=== PATIENT | female | born 1960 | race Caucasian/White ===

== ENCOUNTER 2018-05-20 11:17 | Outpatient (REF) | payer MEDICAID, SELFPAY ==
[2018-05-20 21:53] LABS: Cholesterol 250 mg/dL (50-200); HDL Cholesterol 50 mg/dL (40-60); LDL CHOLESTEROL 176 mg/dL (<100); TSH (W/Ref FT4) 1.82 uIU/mL (0.358-3.74); Triglyceride 174 mg/dL (30-150)
[2018-05-22 11:35] LABS: Hepatitis C Ab w Rflx HCV PCR Negative (NEGAT)
== END 2018-05-20 11:37 ==
LOC: NCHCN 11:17
PROVIDERS: PCP Nurse Practitioner Primary Care; Visit Provider Nurse Practitioner Family
DX: F41.8 Other specified anxiety disorders (principal); M19.049 Primary osteoarthritis, unspecified hand; N39.490 Overflow incontinence; B36.0 Pityriasis versicolor; R00.2 Palpitations; E78.5 Hyperlipidemia, unspecified; Z00.00 Encounter for general adult medical examination without abnormal findings
CPT/HCPCS: 80061; 83721; 86803; 84443

== ENCOUNTER 2018-05-29 00:38 | Outpatient (CLI) | payer MEDICAID, SELFPAY ==
--- NOTE | 2018-05-29 08:36 | DI.MAMMO_ITS ---
SYMPTOM/DIAGNOSIS: SCREENING, Z12.31 MAMMOGRAM: Mammograms were interpreted according to the usual protocol including computer analysis with CAD system, tomosynthesis and C view imaging. The breast tissue is of moderate radiodensity. There are small bilateral areas of nodularity unchanged when compared with the prior images. There are no suspicious calcifications. There has been no significant interval change when compared with prior examinations. SUMMARY: No evidence of malignancy, Category 1. Yearly screening mammography is recommended. Breast density category B. SA ASSESSMENT OF FINDINGS: Negative. Category 1. Patient will receive a letter notifying them of these results. BI-RADS category B. There are scattered areas of fibroglandular density.
== END 2018-05-29 00:58 ==
PROVIDERS: PCP Nurse Practitioner Primary Care; Visit Provider Nurse Practitioner Family
DX: Z12.31 Encounter for screening mammogram for malignant neoplasm of breast (principal)
CPT/HCPCS: 77063; 77067

== ENCOUNTER 2019-05-26 11:06 | Outpatient (REF) | payer MEDICAID, SELFPAY ==
[2019-05-26 14:31] LABS: Hemoglobin A1C 5.5 % (4.5-6.2)
== END 2019-05-26 11:26 ==
LOC: NCHCN 11:06
PROVIDERS: PCP Nurse Practitioner Family; Visit Provider Nurse Practitioner Family
DX: E78.5 Hyperlipidemia, unspecified (principal); K30 Functional dyspepsia; M25.561 Pain in right knee; M54.9 Dorsalgia, unspecified; M19.049 Primary osteoarthritis, unspecified hand; E66.9 Obesity, unspecified; Z12.11 Encounter for screening for malignant neoplasm of colon
CPT/HCPCS: 83036

== ENCOUNTER 2019-06-23 00:42 | Outpatient (CLI) | payer MEDICAID, SELFPAY ==
--- NOTE | 2019-06-23 15:55 | DI.MAMMO_ITS ---
EXAM: MAMMO SCREENING CLINICAL HISTORY: SCREENING Z12.31 TECHNIQUE: Mammograms were interpreted according to the usual protocol including computer analysis w [employer] CAD system, tomosynthesis and C-view imaging. COMPARISON: [id number] FINDINGS: The breasts are composed of scattered areas of fibroglandular densities, breast density category B. There are no suspicious masses or suspicious microcalcifications. There has been no significant agrawal e when compared with prior images. IMPRESSION: Category 1, negative mammogram. Routine yearly screening is recommended. BI-RADS Cat 1 - Negative Breast Density - Category B - Scattered areas of fibroglandular density
== END 2019-06-23 01:02 ==
PROVIDERS: PCP Nurse Practitioner Family; Visit Provider Nurse Practitioner Family
DX: Z12.31 Encounter for screening mammogram for malignant neoplasm of breast (principal)
CPT/HCPCS: 77063; 77067

== ENCOUNTER 2020-06-02 23:58 | Emergency (ER) | payer MEDICAID, SELFPAY ==
[2020-06-03 00:01] VITALS: BP 158/66; PULSE 70; RESP 16; TEMP 36; O2SAT 99
--- NOTE | 2020-06-03 00:01 | ED.GENADUL_ITS ---
Discharge Plan Disposition Patient Disposition: HOME Condition: Good Discharge Details Clinical Impression: Renal colic on left side Primary Care Provider: Jodie Franklin ED Provider: Praneeth Pastrana Meds and New Rx's Prescriptions: New Hydrocodone/Apap 5/325, 4 Tab [[place] 5/325, 4 Tabs/Btl] 1 tab PO BID Qty: 4 RF: 0 Continued multivitamin Tablet 1 tab PO DAILY RF: 0 acetaminophen 500 mg Tablet 500 mg PO Q6H PRNRF: 0 ibuprofen [Advil] 200 mg Tablet 200 mg PO Q6H PRNRF: 0 Discharge Instructions Instructions: Renal Colic (ED) Additional Instructions: Stay hydrated. Strain urine. Alternate acetaminophen with ibuprofen as we discussed. Use hydrocodone with acetaminophen for severe pain. Contact primary care for follow-up especially if not better in the next few days. Return to ED if you develop fever, worsening pain, persistent vomiting. Referrals: Jodie Franklin [Primary Care Provider] - Medical Decision Making Patient's presentation consistent with renal colic. Now very comfortable with benign exam. CT scan currently down. If CBC and chemistry unremarkable and urine with hematuria would assume ureteral stone and colic. 01:15 -patient's urine does have a large amount of blood present. No sign of infection by urinalysis and micro. White count is normal. Creatinine a little higher than previous but no CVAT. Patient comfortable at this point. Discussed renal colic/kidney stones, need for follow-up, straining urine. Recommend alternating acetaminophen with ibuprofen and using [place] for severe pain. State information sheet and informed consent obtained. Contact primary care for follow-up in the next few days if not better. Return to ED for fever, uncontrolled pain, persistent vomiting. Medical Records Medical records reviewed: Yes I reviewed the patient's medical records. Lab Data Lab results reviewed: Yes I reviewed the patient's lab results. HPI General Mode of arrival: ambulatory . Date/Time Provider Initiated Documentation: 06/02/20 23:59 . Limitations to Documentation: no limitations . Information obtained by: patient and RN notes reviewed . HPI Narrative: Patient presents to ED with left lower quadrant abdominal pain. Patient woke up with severe pain tonight. It was associated with nausea and vomiting. Pain radiated to the back. She has had discomfort for 4 days. It has responded to Tylenol and Motrin 1 taken. Tonight she had severe pain which has since gone away on arrival. She does have a history of kidney stone. She denies fever or urinary symptoms. She is unable to recall whether the pain she was similar to previous kidney stone pain. Related Data Home Medications Medication Instructions Recorded Confirmed HYDROcodone/APAP 5/325, 4 tab 1 tab PO BID #4 tab 06/03/20 [[place] 5/325, 4 tabs/btl] acetaminophen 500 mg PO Q6H PRN 06/03/20 06/03/20 ibuprofen [Advil] 200 mg PO Q6H PRN 06/03/20 06/03/20 multivitamin 1 tab PO DAILY 06/03/20 06/03/20 Previous Rx's Medication Instructions Recorded HYDROcodone/APAP 5/325, 4 tab 1 tab PO BID #4 tab 06/03/20 [[place] 5/325, 4 tabs/btl] Allergies Allergy/AdvReac Type Severity Reaction Status Date / Time No Known Allergies Allergy Unverified 06/03/20 00:06 Review of Systems Narrative: As documented in HPI otherwise negative as below. Const: no fever, chills, weakness Resp: no cough, SOB, pleuritic pain CV: no CP, diaphoresis, edema, syncope GI: no diarrhea Neuro: no headache, numbness, focal weakness, confusion PFSH Medical History Kidney stones Surgical History S/P hysterectomy Social History Alcohol Intake: never Substance use type: does not use Do you feel safe at home: Yes Exam Narrative Exam Narrative: Vitals: Afebrile. Elevated systolic pressure, otherwise normal vitals and normal room air pulse ox. Const: Obese female in NAD. HEENT: NC/AT. Normal facial exam. Eyes: Normal conjunctiva and sclera. Neck: Supple. Trachea midline. Lungs: Normal respiratory effort. Lungs are clear. Cor: RRR without murmur/gallop. Good radial pulses. GI: Soft. NT/ND. No guarding or rebound. Back: No CVAT Neuro: A+O x 3. Normal speech, mentation, gait. Cranial nerves II - XII grossly intact. No gross motor or sensory deficit. Ext: No C/C/E. Skin: Warm and dry without rash.
[2020-06-03 00:29] LABS: Bilirubin Negative (Negative); Blood Large (Negative); Clarity Clear (Clear); Glucose Negative (Negative); Ketones Negative (Negative); Leukocyte Esterase Small (Negative); Nitrite Negative (Negative); Specific Gravity 1.025 (1.005-1.025); Urobilinogen 0.2 EU/dL (Up TO 0.2)
[2020-06-03 00:33] LABS: Bacteria Rare HPF (Negative); C & S Indicated? Yes; Casts Negative LPF (Negative); Crystals Negative HPF (Negative); Epithelial Cells Rare HPF (Negative); Mucus Negative (Negative); RBC 20-50 HPF (0-2)
[2020-06-03 00:42] LABS: Abs Immature Grans 0.03 10^3/uL (0.0-0.06); Absolute Basophil Count 0.05 10^3/uL (0.0-0.2); Absolute Eosinophil Count 0.41 10^3/uL (0.0-0.7); Absolute Monocyte Count 0.78 10^3/uL (0.1-0.8); Absolute Neutrophil Count 6.12 10^3/uL (1.2-6.7); Basophils % 0.5; Eosinophils % 4.1; HCT 43.3 % (36.0-46.0); HGB 14.6 g/dL (11.2-15.7); Immature Grans % 0.3; Lymphocytes % 25.3; MCH 31.5 pg (27.0-33.0); MCHC 33.7 % (32.0-36.0); MCV 93.5 fL (80-95); MPV 9.4 fL (8.0-11.0); Monocytes % 7.9; Neutrophils % 61.9; Nucleated RBC 0 %; Platelet Count 265 10^3/uL (130-400); RBC 4.63 10^6/uL (3.93-5.22); RDW 12.4 % (11.7-14.6); RDW-SD 42.6 fL; WBC 9.89 10^3/uL (4.4-10.8)
[2020-06-03 00:45] LABS: Anion Gap 10.1 mmol/L (3-11); BUN 17 mg/dL (7-18); CO2 24.9 mmol/L (21.0-32.0); CREATININE 1.53 mg/dL (0.55-1.02); Chloride 103 mmol/L (98-107); Estimated GFR 34.51 (mL/min/1.73m2); Glucose 107 mg/dL (74-106); Potassium 4.1 mmol/L (3.5-5.1); Sodium 138 mmol/L (136-145)
[2020-06-03] MEDS: Ibuprofen 400 MG TAB PO (01:26)
[2020-06-03 01:30] VITALS: BP 113/51; PULSE 63; RESP 16; O2SAT 98
== END 2020-06-03 01:29 | disposition home or self-care (01) ==
PROVIDERS: Emergency Provider Emergency Medicine; PCP Nurse Practitioner Family
DX: N23 Unspecified renal colic (principal); R11.2 Nausea with vomiting, unspecified; R31.9 Hematuria, unspecified; Z87.442 Personal history of urinary calculi
CPT/HCPCS: 36415; 80048; 99283; 81003; 81015; 85025; 87086

== ENCOUNTER 2020-06-07 07:12 | Emergency (ER) | payer MEDICAID, SELFPAY ==
[2020-06-07 07:19] VITALS: BP 149/90; PULSE 90; RESP 16; TEMP 36.1; O2SAT 96
--- NOTE | 2020-06-07 07:34 | ED.GENADUL_ITS ---
Discharge Plan Disposition Patient Disposition: HOME Condition: Stable Discharge Details Clinical Impression: Ureterolithiasis, Elevated LFTs Primary Care Provider: Jodie Franklin ED Provider: Ashley Goetz Home Meds and New Rx's Prescriptions: New oxycodone 5 mg tablet 5 mg PO QHS PRNQty: 6 RF: 0 Discontinued acetaminophen 500 mg Tablet 500 mg PO Q6H PRNRF: 0 Hydrocodone/Apap 5/325, 4 Tab [[place] 5/325, 4 Tabs/Btl] 1 tab PO BID Qty: 4 RF: 0 No Action multivitamin Tablet 1 tab PO DAILY RF: 0 ibuprofen [Advil] 200 mg Tablet 200 mg PO Q6H PRNRF: 0 Discharge Instructions Instructions: Oxycodone, Rapid Release (By mouth), Kidney Stones (ED) Additional Instructions: Please return immediately to the emergency department if you develop any new or worsening symptoms, if your condition does not improve as expected, or if you become otherwise concerned. It is extremely important that you call soon as possible to make an appointment to be seen in follow-up for this visit by your primary care doctor and a urologist; you will need follow-up for your kidney stone and also for your elevated liver function tests as we discussed. Referrals: Jodie Franklin [Primary Care Provider] - Lisandro Wright MD [ [facility] STAFF PHYSICIAN] - Discharge Data Discharge Date/Time-TO BE ENTERED AT DEPARTURE: 06/07/20 11:44 Medical Decision Making Leora Simpson is a 60 y/o woman with history of kidney stones and no other history of reported medical problems who presented to the emergency department with left lower quadrant pain radiating into the left flank consistent with pain she had with kidney stone in the past, has been ongoing over the past week, worsened several days ago with unchanged severity of pain since that time. On exam patient is well and nontoxic-appearing. There is no abdominal or CVA tenderness to palpation. Concern for likely renal stone. Exam/history at this time is not consistent with acute aortic process, other acute intra-abdominal surgical process, sepsis. Plan for screening labs, IV fluid hydration, CT renal. Will monitor and reassess. Patient requests no opiate pain medication as she needs to drive herself home. Labs show mildly elevated LFTs, creatinine 1.24 which is decreased from 1.5 at last visit. Records show LFTs within normal limits 2016. Patient reports taking 1 Tylenol arthritis (650mg) daily for months, also has taken 500 mg of Tylenol 4 times in the past 24 hours in additon to 325mg with hydrocodone over the past 4 days (max dose in 24 hour period 2975mg, which is 32.8mg/kg). Reported dosage of Tylenol unlikely to be cause of elevated LFTs, however will send acetaminophen level and discuss with poison control for subacute Tylenol overdose. UA with 2+ leukoesterase but with squamous contamination, will repeat. CT shows 1 mm stone in the distal left ureter, mild hydro. Results and plan discussed with patient who is amenable. Per poison control, reported dosing of tylenol not likely to be related to LFT abnormalities, no indication for treatment at reported dosing and with current LFT results. Repeat UA not consistent with UTI. Patient reports feeling improved. I had a lengthy discussion with Patient regarding return to emergency department precautions, home care, and importance of outpatient follow-up with PCP and urology. Pt verbalizes understanding of the plan and is amenable. Patient discharged to home with clear plan for outpatient follow-up. All questions were answered. Disposition decision was made weighing the risks and benefits of hospitalization versus outpatient treatment, the risk for further decompensation, and the patient's wishes. Medical Records Medical records reviewed: Yes I reviewed the patient's medical records. Imaging Data Radiologic Study: Attestation: I personally reviewed and interpreted this imaging study as follows: Radiologist's impression: EXAM: CT RENAL COLIC WO CLINICAL HISTORY: left lower quadrant pain, h/o stones TECHNIQUE: COMPARISON: CT ABD PELVIS WITH CONTRAST from 10/26/2016 FINDINGS: CT examination of the abdomen and pelvis was performed without contrast administration. Images obtained through the lung bases are unremarkable. Note is made of hepatic steatosis and a prior cholecystectomy. No biliary dilatation seen. Pancreas is unremarkable as is the spleen. Abdominal aorta is of normal diameter. No significant abdominal or pelvic adenopathy. Small fat containing umbilical hernia noted. Appendix is normal. No evidence of diverticulitis or bowel obstruction. Adrenals appear normal bilaterally. Right kidney and ureter appear normal with no evidence of a renal mass, hydronephrosis, or nephrolithiasis or ureterolithiasis. There is mild left hydronephrosis and hydroureter to the level of the distal ureter where there is an obstructing 1 millimeter in diameter calculus. No additional ureteral or renal calcification noted on the left. No left renal mass. Urinary bladder is essentially empty. IMPRESSION: Obstructing 1 millimeter in diameter distal left ureteral stone. No other significant findings. Lab Data Lab results reviewed: Yes I reviewed the patient's lab results. Labs: Laboratory Tests Range/Units 06/07/20 06/07/20 06/07/20 07:30 07:55 07:55 WBC (4.4-10.8) 10^3/uL 7.05 RBC (3.93-5.22) 10^6/uL 4.78 Hgb (11.2-15.7) g/dL 15.1 Hct (36.0-46.0) % 44.1 MCV (80-95) fL 92.3 MCH (27.0-33.0) pg 31.6 MCHC (32.0-36.0) % 34.2 RDW (11.7-14.6) % 12.4 Plt Count (130-400) 10^3/uL 271 MPV (8.0-11.0) fL 9.8 Immature Gran % 0.9 Neutrophils % 70.7 Lymphocytes % 19.6 Monocytes % 5.5 Eosinophils % 2.7 Basophils % 0.6 Nucleated RBC % % 0 Absolute Neutrophils (1.2-6.7) 10^3/uL 4.99 Absolute Lymphocytes (1.2-3.4) 10^3/uL 1.38 Absolute Monocytes (0.1-0.8) 10^3/uL 0.39 Absolute Eosinophils (0.0-0.7) 10^3/uL 0.19 Absolute Basophils (0.0-0.2) 10^3/uL 0.04 Sodium (136-145) mmol/L 138 Potassium (3.5-5.1) mmol/L 4.5 Chloride (98-107) mmol/L 103 Carbon Dioxide (21.0-32.0) mmol/L 24.8 Anion Gap (3-11) mmol/L 10.2 BUN (7-18) mg/dL 19 H Creatinine (0.55-1.02) mg/dL 1.24 H Estimated GFR/1.73 m2 (mL/min/1.73m2) 43.98 Glucose (74-106) mg/dL 118 H Calcium (8.5-10.1) mg/dL 10.0 Total Bilirubin (0.2-1.0) mg/dL 0.5 AST (15-37) U/L 66 H ALT (14-59) U/L 110 H Alkaline Phosphatase (46-116) U/L 76 Total Protein (6.4-8.2) g/dL 7.9 Albumin (3.4-5.0) g/dL 4.1 Urine Color (Yellow) Yellow Urine Clarity (Clear) Sl cloudy Urine pH (5-8) 6.5 Ur Specific [place] (1.005-1.025) 1.020 Urine Protein (Negative) mg/dL Negative Urine Ketones (Negative) mg/dL Negative Urine Blood (Negative) Moderate H Urine Nitrite (Negative) Negative Urine Bilirubin (Negative) Negative Urine Urobilinogen (Up TO 0.2) EU/dL 0.2 Ur Leukocyte Esterase (Negative) Moderate H Urine RBC (0-2) HPF Urine WBC (0-5) HPF >50 H Ur Epithelial Cells (Negative) HPF Moderate Urine Crystals (Negative) HPF Negative Urine Bacteria (Negative) HPF Few Urine Casts (Negative) LPF Urine Mucus (Negative) Moderate Urine Other (Negative) Ur Culture Indicated? No/sq. contamination Urine Glucose (Negative) mg/dL Negative Acetaminophen (10-30) ug/mL Range/Units 06/07/20 06/07/20 07:55 09:45 WBC (4.4-10.8) 10^3/uL RBC (3.93-5.22) 10^6/uL Hgb (11.2-15.7) g/dL Hct (36.0-46.0) % MCV (80-95) fL MCH (27.0-33.0) pg MCHC (32.0-36.0) % RDW (11.7-14.6) % Plt Count (130-400) 10^3/uL MPV (8.0-11.0) fL Immature Gran % Neutrophils % Lymphocytes % Monocytes % Eosinophils % Basophils % Nucleated RBC % % Absolute Neutrophils (1.2-6.7) 10^3/uL Absolute Lymphocytes (1.2-3.4) 10^3/uL Absolute Monocytes (0.1-0.8) 10^3/uL Absolute Eosinophils (0.0-0.7) 10^3/uL Absolute Basophils (0.0-0.2) 10^3/uL Sodium (136-145) mmol/L Potassium (3.5-5.1) mmol/L Chloride (98-107) mmol/L Carbon Dioxide (21.0-32.0) mmol/L Anion Gap (3-11) mmol/L BUN (7-18) mg/dL Creatinine (0.55-1.02) mg/dL Estimated GFR/1.73 m2 (mL/min/1.73m2) Glucose (74-106) mg/dL Calcium (8.5-10.1) mg/dL Total Bilirubin (0.2-1.0) mg/dL AST (15-37) U/L ALT (14-59) U/L Alkaline Phosphatase (46-116) U/L Total Protein (6.4-8.2) g/dL Albumin (3.4-5.0) g/dL Urine Color (Yellow) Yellow Urine Clarity (Clear) Clear Urine pH (5-8) 7.0 Ur Specific [place] (1.005-1.025) 1.020 Urine Protein (Negative) mg/dL Negative Urine Ketones (Negative) mg/dL Negative Urine Blood (Negative) Small H Urine Nitrite (Negative) Negative Urine Bilirubin (Negative) Negative Urine Urobilinogen (Up TO 0.2) EU/dL 0.2 Ur Leukocyte Esterase (Negative) Small H Urine RBC (0-2) HPF 10-20 H Urine WBC (0-5) HPF 5-10 Ur Epithelial Cells (Negative) HPF Moderate Urine Crystals (Negative) HPF Negative Urine Bacteria (Negative) HPF Rare Urine Casts (Negative) LPF Negative Urine Mucus (Negative) Trace Urine Other (Negative) Few transitional Ur Culture Indicated? No/sq. contamination Urine Glucose (Negative) mg/dL Negative Acetaminophen (10-30) ug/mL < 2 HPI General Mode of arrival: ambulatory . Date/Time Provider Initiated Documentation: 06/07/20 07:34 . Limitations to Documentation: no limitations . Information obtained by: patient, RN notes reviewed and old records reviewed . HPI Narrative: Leora Simpson is a 60 y/o woman with history of kidney stones and no other reported medical systems presenting to the emergency department with left lower quadrant pain. Patient reports that approximately 1 week ago she developed mild to moderate left lower quadrant pain. Patient reports that pain is waxing and waning but constant. She reported that pain became more severe, and she presented here 06/03. Patient reports that she was diagnosed with likely kidney stone at the time, however CT scanner was nonfunctional. She was discharged home with hydrocodone. Patient reports that hydrocodone ran out yesterday, and she has been unable to manage pain despite frequent doses of Tylenol and ibuprofen. Patient reports that she took ibuprofen at 530 this morning and Tylenol at approximately 230 this morning. Patient reports that pain is not worse, but that she is unable to manage pain without hydrocodone. She denies any other pain, fever, vomiting, shortness of breath, cough, numbness, weakness, new rash. She does report some softer stools since onset of symptoms 1 week ago. She denies any recent illness. Has been eating and drinking as usual and has been drinking plenty of fluids. Related Data Home Medications Medication Instructions Recorded Confirmed ibuprofen [Advil] 200 mg PO Q6H PRN 06/03/20 06/07/20 multivitamin 1 tab PO DAILY 06/03/20 06/07/20 oxycodone 5 mg PO QHS PRN #6 tab 06/07/20 Previous Rx's Medication Instructions Recorded oxycodone 5 mg PO QHS PRN #6 tab 06/07/20 Allergies Allergy/AdvReac Type Severity Reaction Status Date / Time No Known Allergies Allergy Unverified 06/03/20 00:06 General Stated Complaint: FlankPain GENOVEVA: 3 Review of Systems Narrative: Constitutional: denies fevers Eyes: denies eye pain ENT: denies ear pain, dental pain, sore throat Cardiovascular: denies chest pain Respiratory: denies SOB, cough GI: denies vomiting, diarrhea, reports left lower quadrant pain : denies flank pain, dysuria MSK: denies back pain, neck pain, arthralgias, myalgias Skin: denies rash Neuro: denies headaches, numbness, weakness PFSH Medical History Kidney stones Surgical History S/P hysterectomy Social History Smoking/Tobacco Use Status: Never Alcohol Intake: never Substance use type: does not use Do you feel safe at home: Yes Do you feel safe in your relationship?: Yes Exam Narrative Exam Narrative: Constitutional: well and [id number], pleasant, conversing normally HENT: head atraumatic/normocephalic/normal inspection, mucous membranes moist Eyes: conjunctiva normal, sclera normal, pupils 3mm b/l Neck: no stridor, normal ROM, trachea midline Resp: normal work of breathing, LCTAB Cardio: normal rate, normal rhythm, no murmur appreciated GI: abdomen soft, non-tender, non-distended, no CVA TTP b/l Skin: warm, dry, normal color, no rash Neuro: alert, not altered, grossly non-focal, normal tone Ext: no edema Psych: normal mood, normal affect, normal behavior Course Vital Signs Vital signs: Vital Signs Temperature 36.1 C L 06/07/20 07:19 Pulse 90 06/07/20 07:19 Respiratory Rate 16 06/07/20 07:19 Blood Pressure 149/90 H 06/07/20 07:19 Pulse Oximetry 96 06/07/20 07:19 Temperature 36.1 C L 06/07/20 07:19 Pulse 90 06/07/20 07:19 Respiratory Rate 16 06/07/20 07:19 Respiratory Effort Non-Labored 06/07/20 07:23 Blood Pressure 149/90 H 06/07/20 07:19 Blood Pressure Position Sitting 06/07/20 07:19 Pulse Oximetry 96 06/07/20 07:19 Oxygen Delivery Method Room Air 06/07/20 07:19 Oxygen Flow Rate 0 06/07/20 07:19 Pain Level 7 06/07/20 07:19
[2020-06-07 07:40] LABS: Bilirubin Negative (Negative); Blood Moderate (Negative); Glucose Negative (Negative); Ketones Negative (Negative); Leukocyte Esterase Moderate (Negative); Nitrite Negative (Negative); Urobilinogen 0.2 EU/dL (Up TO 0.2); pH 6.5 (5-8)
[2020-06-07 07:42] LABS: Clarity Sl Cloudy (Clear)
[2020-06-07 07:55] LABS: WBC >50 HPF (0-5)
[2020-06-07 07:56] LABS: Bacteria Few HPF (Negative); Crystals Negative HPF (Negative); Epithelial Cells Moderate HPF (Negative); Mucus Moderate (Negative)
[2020-06-07 07:57] LABS: C & S Indicated? No/Sq. Contamination
--- NOTE | 2020-06-07 08:00 | DI.CT_ITS ---
EXAM: CT RENAL COLIC WO CLINICAL HISTORY: left lower quadrant pain, h/o stones TECHNIQUE: COMPARISON: CT ABD PELVIS WITH CONTRAST from 10/26/2016 FINDINGS: CT examination of the abdomen and pelvis was performed without contrast administration. Images obtai juan antonio through the lung bases are unremarkable. Note is made of hepatic steatosis and a prior cholecystectomy. No biliary dilatation seen. Pancreas is unremarkable as is the spleen. Abdominal aorta is of normal diameter. No significant abdominal or pelvic adenopathy. Small fat con taining umbilical hernia noted. Appendix is normal. No evidence of diverticulitis or bowel obstruction. Adrenals appear normal bilaterally. Right kidney and ureter appear normal with no evidence of a fabiola l mass, hydronephrosis, or nephrolithiasis or ureterolithiasis. There is mild left hydronephrosis and hydroureter to the level of the distal ureter where there is an obstructing 1 millimeter in diameter calculus. No additional ureteral or renal calcification noted on the left. No left renal mass. Urinary bladder is essentially empty. IMPRESSION: Obstructing 1 millimeter in diameter distal left ureteral stone. No other significant findings. RADIATION DOSE DELIVERED: 1,270.24mGy.cm Total DLP
[2020-06-07 08:09] LABS: Abs Immature Grans 0.06 10^3/uL (0.0-0.06); Absolute Basophil Count 0.04 10^3/uL (0.0-0.2); Absolute Eosinophil Count 0.19 10^3/uL (0.0-0.7); Absolute Lymphocyte Count 1.38 10^3/uL (1.2-3.4); Absolute Monocyte Count 0.39 10^3/uL (0.1-0.8); Absolute Neutrophil Count 4.99 10^3/uL (1.2-6.7); Basophils % 0.6; Eosinophils % 2.7; HCT 44.1 % (36.0-46.0); HGB 15.1 g/dL (11.2-15.7); Immature Grans % 0.9; Lymphocytes % 19.6; MCH 31.6 pg (27.0-33.0); MCHC 34.2 % (32.0-36.0); MCV 92.3 fL (80-95); MPV 9.8 fL (8.0-11.0); Monocytes % 5.5; Neutrophils % 70.7; Nucleated RBC 0 %; Platelet Count 271 10^3/uL (130-400); RBC 4.78 10^6/uL (3.93-5.22); RDW 12.4 % (11.7-14.6); RDW-SD 41.9 fL; WBC 7.05 10^3/uL (4.4-10.8)
[2020-06-07 08:27] LABS: ALT 110 U/L (14-59); AST 66 U/L (15-37); Albumin 4.1 g/dL (3.4-5.0); Alkaline Phosphatase 76 U/L (46-116); Anion Gap 10.2 mmol/L (3-11); BUN 19 mg/dL (7-18); Bilirubin, Total 0.5 mg/dL (0.2-1.0); CO2 24.8 mmol/L (21.0-32.0); CREATININE 1.24 mg/dL (0.55-1.02); Chloride 103 mmol/L (98-107); Estimated GFR 43.98 (mL/min/1.73m2); Glucose 118 mg/dL (74-106); Potassium 4.5 mmol/L (3.5-5.1); Sodium 138 mmol/L (136-145); Total Protein 7.9 g/dL (6.4-8.2)
[2020-06-07] MEDS: Normal Saline 1,000 ML 1000 ML IV (08:46)
[2020-06-07] MEDS: Ketorolac 15 MG/ML VIAL IVP (09:37)
[2020-06-07 09:54] VITALS: BP 136/85; PULSE 65; RESP 18; O2SAT 97
[2020-06-07 10:02] LABS: Acetaminophen < 2 ug/mL (10-30)
[2020-06-07 10:08] LABS: Bilirubin Negative (Negative); Blood Small (Negative); Clarity Clear (Clear); Glucose Negative (Negative); Ketones Negative (Negative); Leukocyte Esterase Small (Negative); Nitrite Negative (Negative); Urobilinogen 0.2 EU/dL (Up TO 0.2)
[2020-06-07 10:16] LABS: Bacteria Rare HPF (Negative); Casts Negative LPF (Negative); Crystals Negative HPF (Negative); Epithelial Cells Moderate HPF (Negative); Mucus Trace (Negative)
[2020-06-07 10:17] LABS: C & S Indicated? No/Sq. Contamination; Other Cells Few Transitional (Negative)
[2020-06-07 11:14] VITALS: BP 130/72; PULSE 70; RESP 15; TEMP 36.5; O2SAT 98
--- NOTE | 2020-06-07 11:25 | NUR.NOTE ---
Referral faxed to [facility].Nursing Note:
== END 2020-06-07 11:44 | disposition home or self-care (01) ==
PROVIDERS: Emergency Provider Student in an Organized Health Care Education/Training Program; PCP Nurse Practitioner Family
DX: N13.2 Hydronephrosis with renal and ureteral calculous obstruction (principal); Z87.442 Personal history of urinary calculi; R74.01 Elevation of levels of liver transaminase levels
CPT/HCPCS: 36415; 80053; 96361; 96374; 99284; 74176; 80329; 81003; 81015; 85025; J1885

== ENCOUNTER 2020-06-09 14:56 | Outpatient (REF) | payer MEDICAID, SELFPAY ==
[2020-06-09 22:01] LABS: ALT 80 U/L (14-59); AST 37 U/L (15-37); Albumin 4.3 g/dL (3.4-5.0); Alkaline Phosphatase 87 U/L (46-116); Bilirubin, Direct 0.14 mg/dL (0.00-0.20); Bilirubin, Total 0.4 mg/dL (0.2-1.0); Total Protein 7.6 g/dL (6.4-8.2)
== END 2020-06-09 15:16 ==
LOC: NCHCN 14:56
PROVIDERS: PCP Nurse Practitioner Family; Visit Provider Nurse Practitioner Family
DX: R94.5 Abnormal results of liver function studies (principal)
CPT/HCPCS: 80076

== ENCOUNTER 2020-07-30 02:00 | Outpatient (CLI) | payer MEDICAID, SELFPAY ==
--- NOTE | 2020-07-30 07:00 | DI.US_ITS ---
EXAM: US RENAL CLINICAL HISTORY: monitoring hydro, ureterolithiasis, N20.1, N13.30 TECHNIQUE: Ultrasound performed using standard protocol. COMPARISON: US RIGHT BREAST ULTRASOUND {[id number]} from 04/21/2015 FINDINGS: Renal ultrasound was performed according to the usual protocol. The kidneys are normal in size and s hape. There is no evidence of hydronephrosis. No renal mass identified. There is a 4 millimeter echogenic focus of the midpole of the right kidney with posterior acoustic sh adowing and twinkle artifact noted, consistent with nonobstructing small renal stone. Urinary bladder is incompletely distended, pre and post void urinary bladder volume estimated at 84 c c and 0 cc respectively. IMPRESSION: 4 millimeter nonobstructing right midpole renal calculus. No other significant findings. DATA REPOSITORY:
== END 2020-07-30 02:20 ==
PROVIDERS: PCP Nurse Practitioner Family; Visit Provider Nurse Practitioner Gerontology
DX: N20.0 Calculus of kidney (principal); N13.30 Unspecified hydronephrosis
CPT/HCPCS: 76770

== ENCOUNTER 2020-07-30 03:40 | Outpatient (CLI) | payer MEDICAID, SELFPAY ==
[2020-07-30 10:12] LABS: ALT 91 U/L (14-59); AST 47 U/L (15-37); Albumin 4.3 g/dL (3.4-5.0); Alkaline Phosphatase 76 U/L (46-116); Anion Gap 8.7 mmol/L (3-11); BUN 17 mg/dL (7-18); Bilirubin, Total 0.4 mg/dL (0.2-1.0); CO2 24.3 mmol/L (21.0-32.0); CREATININE 1.05 mg/dL (0.55-1.02); Calcium 9.2 mg/dL (8.5-10.1); Chloride 107 mmol/L (98-107); Estimated GFR 53.28 (mL/min/1.73m2); Glucose 109 mg/dL (74-106); Potassium 4.1 mmol/L (3.5-5.1); Sodium 140 mmol/L (136-145); Total Protein 7.5 g/dL (6.4-8.2)
== END 2020-07-30 04:00 ==
PROVIDERS: PCP Nurse Practitioner Family; Visit Provider Nurse Practitioner Gerontology
DX: N20.1 Calculus of ureter (principal); R79.89 Other specified abnormal findings of blood chemistry
CPT/HCPCS: 36415; 80053

== ENCOUNTER 2020-09-20 17:52 | Outpatient (REF) | payer MEDICAID, SELFPAY ==
[2020-09-20 13:45] LABS: Abs Immature Grans 0.02 10^3/uL (0.0-0.06); Absolute Basophil Count 0.04 10^3/uL (0.0-0.2); Absolute Eosinophil Count 0.15 10^3/uL (0.0-0.7); Absolute Lymphocyte Count 2.23 10^3/uL (1.2-3.4); Absolute Monocyte Count 0.55 10^3/uL (0.1-0.8); Absolute Neutrophil Count 4.48 10^3/uL (1.2-6.7); Basophils % 0.5; HCT 49.3 % (36.0-46.0); HGB 16.5 g/dL (11.2-15.7); Immature Grans % 0.3; Lymphocytes % 29.9; MCHC 33.5 % (32.0-36.0); MCV 92.5 fL (80-95); MPV 10.4 fL (8.0-11.0); Monocytes % 7.4; Neutrophils % 59.9; Nucleated RBC 0 %; Platelet Count 332 10^3/uL (130-400); RBC 5.33 10^6/uL (3.93-5.22); RDW 12.4 % (11.7-14.6); RDW-SD 42.5 fL; WBC 7.47 10^3/uL (4.4-10.8)
[2020-09-20 13:57] LABS: ALT 83 U/L (14-59); AST 54 U/L (15-37); Albumin 4.6 g/dL (3.4-5.0); Alkaline Phosphatase 71 U/L (46-116); BUN 16 mg/dL (7-18); Bilirubin, Total 0.6 mg/dL (0.2-1.0); Calcium 10.5 mg/dL (8.5-10.1); Calculated LDL 195 mg/dL (<100); Chloride 107 mmol/L (98-107); Cholesterol 273 mg/dL (<200); Glucose 92 mg/dL (74-106); HDL Cholesterol 50 mg/dL (40-60); Potassium 4.7 mmol/L (3.5-5.1); Sodium 141 mmol/L (136-145); Triglyceride 144 mg/dL (<150)
[2020-09-20 15:36] LABS: Hemoglobin A1C 5.5 % (<5.7)
[2020-09-21 10:46] LABS: Hepatitis A Antibody IgM Negative (Negative); Hepatitis B Core Antibody Negative (Negative); Hepatitis B surface Ag Negative (Negative); Hepatitis C Ab w Rflx HCV PCR Negative (Negative)
== END 2020-09-20 18:12 ==
LOC: NCHCN 17:52
PROVIDERS: PCP Nurse Practitioner Family; Visit Provider Nurse Practitioner Family
DX: E83.52 Hypercalcemia (principal); D75.1 Secondary polycythemia; R94.5 Abnormal results of liver function studies; N20.0 Calculus of kidney; E78.5 Hyperlipidemia, unspecified; M54.5 Low back pain; M25.561 Pain in right knee; M25.562 Pain in left knee; M19.041 Primary osteoarthritis, right hand; E66.9 Obesity, unspecified; Z11.59 Encounter for screening for other viral diseases; Z00.00 Encounter for general adult medical examination without abnormal findings; M19.042 Primary osteoarthritis, left hand
CPT/HCPCS: 80053; 80061; 86704; 86709; 86803; 87340; 83036; 85025

== ENCOUNTER 2020-09-23 05:02 | Outpatient (CLI) | payer MEDICAID, SELFPAY ==
[2020-09-23 09:12] LABS: TSH (W/Ref FT4) 1.61 uIU/mL (0.36-3.74)
[2020-09-23 16:48] LABS: Ionized Calcium 1.18 mmol/L (1.12-1.32)
[2020-09-24 09:04] LABS: Parathyroid Hormone,Intact 88 pg/mL (19-88)
[2020-11-04 08:58] LABS: Misc Referral (DHMC) See Comments
== END 2020-09-23 05:22 ==
PROVIDERS: PCP Nurse Practitioner Family; Visit Provider Nurse Practitioner Family
DX: E83.52 Hypercalcemia (principal); D75.1 Secondary polycythemia; R94.5 Abnormal results of liver function studies
CPT/HCPCS: 0027U; 36415; 81270; 82330; 83970; 84443

== ENCOUNTER 2020-09-29 01:17 | Outpatient (CLI) | payer MEDICAID, SELFPAY ==
--- NOTE | 2020-09-29 | DI.US_ITS ---
EXAM: US ABDOMEN CLINICAL HISTORY: ELEVATED LFT'S,R94.5,POLYCYTHEMIA,D75.1 TECHNIQUE: Ultrasound abdomen performed using standard protocol. COMPARISON: CT CT RENAL COLIC WO from 06/07/2020 FINDINGS: Exam is limited by patient body habitus. The liver shows increased echogenicity and decreased through transmission, consistent with moderate t o severe hepatic steatosis. No focal liver lesions are visible. GALLBLADDER: Status post cholecystectomy. BILIARY SYSTEM: No intrahepatic or extrahepatic biliary ductal dilation. KIDNEYS: Kidneys are symmetric in size. No evidence of renal calculi. No evidence of hydronephrosis. No renal mass or cyst identified. PANCREAS: Normal where visualized. SPLEEN: Not enlarged. ABDOMINAL AORTA AND IVC: Visualized portions normal caliber. ASCITES: None seen. IMPRESSION: Limited exam due to patient body habitus. Hepatic steatosis. DATA REPOSITORY:
== END 2020-09-29 01:37 ==
PROVIDERS: PCP Nurse Practitioner Family; Visit Provider Nurse Practitioner Family
DX: R94.5 Abnormal results of liver function studies (principal); D75.1 Secondary polycythemia; K76.0 Fatty (change of) liver, not elsewhere classified; Z90.49 Acquired absence of other specified parts of digestive tract
CPT/HCPCS: 76700

== ENCOUNTER 2020-11-02 03:18 | Outpatient (CLI) | payer MEDICAID, SELFPAY ==
[2020-11-02 16:17] LABS: Abs Immature Grans 0.03 10^3/uL (0.0-0.06); Absolute Basophil Count 0.04 10^3/uL (0.0-0.2); Absolute Eosinophil Count 0.13 10^3/uL (0.0-0.7); Absolute Lymphocyte Count 2.49 10^3/uL (1.2-3.4); Absolute Monocyte Count 0.46 10^3/uL (0.1-0.8); Absolute Neutrophil Count 4.93 10^3/uL (1.2-6.7); Basophils % 0.5; Eosinophils % 1.6; HCT 46.2 % (36.0-46.0); HGB 15.3 g/dL (11.2-15.7); Immature Grans % 0.4; Lymphocytes % 30.8; MCH 30.7 pg (27.0-33.0); MCHC 33.1 % (32.0-36.0); MCV 92.6 fL (80-95); Monocytes % 5.7; Nucleated RBC 0 %; Platelet Count 315 10^3/uL (130-400); RBC 4.99 10^6/uL (3.93-5.22); RDW 12.3 % (11.7-14.6); RDW-SD 42.3 fL; WBC 8.08 10^3/uL (4.4-10.8)
[2020-11-03 16:52] LABS: Erythropoietin 11.1 mIU/mL (2.6 - 18.5)
[2020-11-09 16:37] LABS: JAK2 Sequencing Result see interpretation
== END 2020-11-02 03:19 | disposition home or self-care (01) ==
LOC: LBO 03:18
PROVIDERS: PCP Nurse Practitioner Family; Visit Provider Internal Medicine Hematology & Oncology
DX: D75.1 Secondary polycythemia (principal); E83.52 Hypercalcemia
CPT/HCPCS: 0027U; 36415; 82668; 85025

== ENCOUNTER 2021-01-03 14:15 | Inpatient (IN) | payer MEDICAID, SELFPAY ==
[2021-01-03] VITALS (58 sets, daily range): BP systolic 92–154; BP diastolic 47–132; PULSE 55–87; RESP 7–27; TEMP 36.1; O2SAT 93–99
--- NOTE | 2021-01-03 14:15 | RT.EKG_ITS ---
APPROVED REPORT Exam: Resting ECG Patient Location: E HR:74 bpm ECG Measurements Heart Rate 74 AXIS VA 156 P 46 QRSd 130 QRS 202 QT 390 T -12 QTc 433 Conclusion Sinus rhythm...normal P axis, V-rate 60- 99 Nonspecific intraventricular conduction delay...QRSd >115mS, not LBBB/RBBB no STEMI, non-diagnostic EKG
[2021-01-03 14:55] LABS: Abs Immature Grans 0.04 10^3/uL (0.0-0.06); Absolute Basophil Count 0.04 10^3/uL (0.0-0.2); Absolute Eosinophil Count 0.04 10^3/uL (0.0-0.7); Absolute Lymphocyte Count 2.07 10^3/uL (1.2-3.4); Absolute Monocyte Count 0.53 10^3/uL (0.1-0.8); Basophils % 0.4; Eosinophils % 0.4; HCT 44.7 % (36.0-46.0); HGB 15.2 g/dL (11.2-15.7); Immature Grans % 0.4; Lymphocytes % 22.5; MCV 91.2 fL (80-95); MPV 9.8 fL (8.0-11.0); Monocytes % 5.7; Neutrophils % 70.6; Nucleated RBC 0 %; Platelet Count 318 10^3/uL (130-400); RDW 12.4 % (11.7-14.6); RDW-SD 41.1 fL; WBC 9.22 10^3/uL (4.4-10.8)
[2021-01-03 15:12] LABS: ALT 44 U/L (14-59); AST 28 U/L (15-37); Alkaline Phosphatase 94 U/L (46-116); Anion Gap 10.6 mmol/L (3-11); BUN 13 mg/dL (7-18); Bilirubin, Total 0.5 mg/dL (0.2-1.0); CO2 26.4 mmol/L (21.0-32.0); CREATININE 1.1 mg/dL (0.55-1.02); Calcium 10.1 mg/dL (8.5-10.1); Chloride 105 mmol/L (98-107); Glucose 106 mg/dL (74-106); Magnesium 2.3 mg/dL (1.8-2.4); Potassium 3.8 mmol/L (3.5-5.1); Sodium 142 mmol/L (136-145); Total Protein 7.5 g/dL (6.4-8.2); Troponin I < 0.05 ng/mL (<0.06)
--- NOTE | 2021-01-03 15:30 | DI.RAD_ITS ---
Exam(s) XR CHEST 2V PA LATERAL EXAM: XR CHEST 2V PA LATERAL CLINICAL HISTORY: chest pain TECHNIQUE: 2D digital imaging was performed. COMPARISON: No exams were available for comparison FINDINGS: MEDIASTINUM: Normal. HEART: Normal. PULMONARY VASCULATURE: Normal. LUNGS: Clear. PLEURAL SPACE: No pleural effusion or pneumothorax. BONE:Within normal limits for the patient's age. OTHER FINDINGS:Normal. IMPRESSION: No acute pulmonary findings. DATA REPOSITORY: RADIATION DOSE DELIVERED:
--- NOTE | 2021-01-03 15:39 | ED.GENADUL_ITS ---
Discharge Plan Disposition Condition: Stable Discharge Details Chief Complaint: Chest Pain Admit Date/Time: 01/04/21 16:56 Admit Provider: Juarez Rodriguez Attending Provider: Ubaldo Byrne Primary Care Provider: Jodie Franklin ED Provider: Katharine Cisneros Discharge Instructions Activity:: bedrest/up to commode Diet:: NPO Discharge Orders Discharge Orders: Discharge Order (Routine); Ordered 01/05/21 Ordered By: Ubaldo Byrne Discharge Data Discharge Date/Time-TO BE ENTERED AT DEPARTURE: 01/03/21 20:10 Medical Decision Making <KWASI Rehman Last Filed: 01/04/21 23:05> EKG shows evidence of right bundle branch block, initial troponin and EKG do not show evidence of acute injury although her EKG shows T wave changes She is given a dose of aspirin although she is currently pain-free I think given this patient story I am very concerned for stable angina but with her history I think she needs admission for observation and stress test, she will likely need dobutamine stress test given that she is symptomatic with exertion Pt will be signed out to Katharine Cisneros PA-C pending repeat troponin and admission Differential Diagnosis Differential Diagnosis: Angina, pulmonary embolism, anxiety, ST elevation NJ Medical Records Medical records reviewed: Yes I reviewed the patient's medical records. <KWASI Alexander Last Filed: 01/06/21 11:54> Care transitioned to myself from Kyung Bruner PA-C. Please refer to her note regarding history, presentation and exam. In brief, patient is a pleasent 60 year old female presenting today with exertional CP that has been noted over recent days. Experienced substernal CP that radiated into back and neck while gardening yestterday. Had same pain today while shopping. States that both times pain stopped when she stopped activity. Has been asymptomatic since being here. HAs signifciant family history for ACS including father who had NJ at 38, att 51. Brother had NJ in his 40s. At the time I assumed care, patient had received ASA and resting comfortably. Repeat troponin pending. Repeat troponin remains stable at <0.05. Discussed these findings with the patient. Given her recent progression of symtpoms and family history, I am concerned about unstable angina and feel that admission for serial troponins and stress testing is appropriate. Consulted with Dr. Rodriguez who agrees to admission. HPI <KWASI Rehman - Last Filed: 01/04/21 23:05> General Mode of arrival: ambulatory . Date/Time Provider Initiated Documentation: 01/03/21 14:28 . Limitations to Documentation: no limitations . Information obtained by: patient . HPI Narrative: This 68-year-old female with history of hyperlipidemia presents with report of chest pain which actually began while she was gardening and mulching on Sunday. She states that the pain radiates up to her jaw and across her shoulders and into her back. She states that anytime she exerts herself regardless of whether or not she is lifting she has discomfort and pressure. Prior to Sunday she denies history of similar symptoms in the past. She denies any associated shortness of breath, nausea, diaphoresis. She does not smoke, drink, or use any illicit drugs. She denies any history of aneurysm. She denies any pleuritic pain or shortness of breath. She denies recent flights, surgeries, long drives. She denies any fever or chills, or cough. She has not had a stress test. Her brother reportedly had an NJ at 40 months and her father at 53 of CHF. She has been told in the past that she has high cholesterol, 240. She denies having a stress test in the past. Related Data Home Medications Medication Instructions Recorded Confirmed multivitamin 1 tab PO DAILY 06/03/20 01/03/21 acetaminophen [Tylenol] 650 mg PO Q4H PRN PRN #0 tab 01/05/21 aspirin 81 mg PO DAILY #0 tab 01/05/21 atorvastatin 40 mg PO DAILY #0 tab 01/05/21 heparin(porcine) in 0.45% NaCl 25,000 unit IV INFUSION #0 ml 01/05/21 Previous Rx's Medication Instructions Recorded acetaminophen [Tylenol] 650 mg PO Q4H PRN PRN #0 tab 01/05/21 aspirin 81 mg PO DAILY #0 tab 01/05/21 atorvastatin 40 mg PO DAILY #0 tab 01/05/21 heparin(porcine) in 0.45% NaCl 25,000 unit IV INFUSION #0 ml 01/05/21 Allergies Allergy/AdvReac Type Severity Reaction Status Date / Time No Known Allergies Allergy Unverified 01/03/21 14:28 General Stated Complaint: Chest Pain GENOVEVA: 2 Review of Systems <KWASI Rehman Last Filed: 01/04/21 23:05> Narrative: Review of systems obtained x7 aside from where indicated in HPI PFS <KWASI Rehman Last Filed: 01/04/21 23:05> Medical History Kidney stones Surgical History S/P hysterectomy Social History Smoking/Tobacco Use Status: Never Smoking risk assessment performed?: Yes Alcohol Intake: never Substance use type: does not use Do you feel safe at home: Yes Do you feel safe in your relationship?: Yes Exam <KWASI Rehman Last Filed: 01/04/21 23:05> Const General: cooperative and comfortable Chest Chest: normal inspection of the chest Resp Effort & Inspection: normal respiratory effort Auscultation: clear to auscultation bilaterally Cardio Rate: regular rate Rhythm: regular rhythm Bruits: no abdominal aortic bruits GI Inspection: normal to inspection Palpation: nontender Auscultation: normal bowel sounds Skin General skin exam: no rashes or lesions noted Neuro General: patient alert and patient oriented x3 Extrem Other: No calf tenderness or swelling appreciated on exam, distal pulses intact Course <KWASI Rehman Last Filed: 01/04/21 23:05> Vital Signs Vital signs: Vital Signs Temperature 36.1 C L 01/03/21 14:23 Pulse 74 01/03/21 14:23 Respiratory Rate 16 01/03/21 14:23 Blood Pressure 149/80 H 01/03/21 14:23 Pulse Oximetry 96 01/03/21 14:23 Temperature 36.1 C L 01/03/21 14:23 Temperature Source Skin 01/03/21 14:23 Pulse 74 01/03/21 14:23 Respiratory Rate 16 01/03/21 14:23 Respiratory Effort Non-Labored 01/03/21 14:29 Blood Pressure 149/80 H 01/03/21 14:23 Blood Pressure Position Sitting 01/03/21 14:23 Pulse Oximetry 96 01/03/21 14:23 Oxygen Delivery Method Room Air 01/03/21 14:23 Oxygen Flow Rate 0 01/03/21 14:23 Pain Level 1 01/03/21 14:23 Lab/Test Results Lab/Test Results: Laboratory Tests Range/Units 01/03/21 01/03/21 14:43 14:43 WBC (4.4-10.8) 10^3/uL 9.22 RBC (3.93-5.22) 10^6/uL 4.90 Hgb (11.2-15.7) g/dL 15.2 Hct (36.0-46.0) % 44.7 MCV (80-95) fL 91.2 MCH (27.0-33.0) pg 31.0 MCHC (32.0-36.0) % 34.0 RDW (11.7-14.6) % 12.4 Plt Count (130-400) 10^3/uL 318 MPV (8.0-11.0) fL 9.8 Immature Gran % 0.4 Neutrophils % 70.6 Lymphocytes % 22.5 Monocytes % 5.7 Eosinophils % 0.4 Basophils % 0.4 Nucleated RBC % % 0 Absolute Neutrophils (1.2-6.7) 10^3/uL 6.50 Absolute Lymphocytes (1.2-3.4) 10^3/uL 2.07 Absolute Monocytes (0.1-0.8) 10^3/uL 0.53 Absolute Eosinophils (0.0-0.7) 10^3/uL 0.04 Absolute Basophils (0.0-0.2) 10^3/uL 0.04 Sodium (136-145) mmol/L 142 Potassium (3.5-5.1) mmol/L 3.8 Chloride (98-107) mmol/L 105 Carbon Dioxide (21.0-32.0) mmol/L 26.4 Anion Gap (3-11) mmol/L 10.6 BUN (7-18) mg/dL 13 Creatinine (0.55-1.02) mg/dL 1.1 H Estimated GFR/1.73 m2 (mL/min/1.73m2) 50.50 Glucose (74-106) mg/dL 106 Calcium (8.5-10.1) mg/dL 10.1 Magnesium (1.8-2.4) mg/dL 2.3 Total Bilirubin (0.2-1.0) mg/dL 0.5 AST (15-37) U/L 28 ALT (14-59) U/L 44 Alkaline Phosphatase (46-116) U/L 94 Troponin I (<0.06) ng/mL < 0.05 Total Protein (6.4-8.2) g/dL 7.5 Albumin (3.4-5.0) g/dL 4.0 Sign Out <KWASI Rehman - Last Filed: 01/04/21 23:05> Sign Out Data: Sign Out Comment: pending ddimer, repeat trop and EKG at 1736 and admission Last updated by Kyung Bruner PA at 01/03/21 16:32
[2021-01-03] MEDS: Aspirin 81 MG CHEW 324 MG CH (15:44)
[2021-01-03 16:41] LABS: D-Dimer 390 ng/mlFEU (<500)
--- NOTE | 2021-01-03 17:18 | DI.VRAD_ITS ---
PROCEDURE INFORMATION: Exam: XR Chest Exam date and time: 01/03/2021 3:44 PM Age: 60 years old Clinical indication: Chest pain TECHNIQUE: Imaging protocol: XR of the chest. Views: 2 views. COMPARISON: No relevant prior studies available. FINDINGS: Lungs: Clear lungs. Pleural spaces: No pneumothorax. No sizable pleural effusion. Heart/Mediastinum: No cardiomegaly. Bones/joints: Unremarkable. IMPRESSION: Clear lungs. Dictated and Authenticated by: Boston Mccann MD. Ordering:BUNNY Tracey MD
[2021-01-03 18:27] LABS: Troponin I 0.05 ng/mL (<0.06)
--- NOTE | 2021-01-03 19:07 | HPE_ITS ---
Date of service: 01/03/21 Time of Service: 19:08 Assessment and Plan Assessment and plan (1) Chest pain: Status: Acute Assessment and plan: CP. I would cylindrical mixer this as high prob ACS (viz, new onset angina). Has received ASA. Will complete r/o and plan on stress test in AM. Patient remainsasymptomatic at rest and no further treatment indicated at present. History of Present Illness History of Present Illness Chief Complaint: CP Narrative: 60 female with HLD and strong FH CAD. here with five days of exertional CP: not sharp diffuse radiation across chest into nck and shoulders (in neck it feels like a pressure); occurs only with significant exertion (eg, running up stairs, vigorous gardening) and relieved with rest within 10-15 minujtes. No associated SOB, nausea, diaphoresis. In ER findings of note for trop neg x2, EKG with NSIVCD (no prior) but no STTW changes. Is admitted to compete r/o and for further valuation. Review of Systems All systems reviewed & are unremarkable except as noted in HPI and below PFSH Medical History Kidney stones Surgical History S/P hysterectomy Social History Smoking/Tobacco Use Status: Never Smoking risk assessment performed?: Yes Alcohol Intake: never Substance use type: does not use Do you feel safe at home: Yes Do you feel safe in your relationship?: Yes Meds Allergies and Home Medications Allergies Allergy/AdvReac Type Severity Reaction Status Date / Time No Known Allergies Allergy Unverified 01/03/21 14:28 Home Medications Medication Instructions Recorded Confirmed Type ibuprofen [Advil] 200 mg PO Q6H PRN 06/03/20 01/03/21 History multivitamin 1 tab PO DAILY 06/03/20 01/03/21 History Exam Narrative Exam Narrative: 144/77, 68, 36.1, 22, 95% RA. HEENT atraumatic; neck supple, JVP <4 cm; lungs clear; heart RRR w/o MRG; abdomen soft and NT; extremities w/o edema, pulses 2+/=; neuro Ox3, nonfocal Results Labs Result diagrams: 01/03/21 14:43 01/03/21 14:43 Labs: Laboratory Results - last 24 hr 01/03/21 01/03/21 01/03/21 14:43 14:43 15:52 WBC 9.22 RBC 4.90 Hgb 15.2 Hct 44.7 MCV 91.2 MCH 31.0 MCHC 34.0 RDW 12.4 Plt Count 318 MPV 9.8 Immature Gran % 0.4 Neutrophils % 70.6 Lymphocytes % 22.5 Monocytes % 5.7 Eosinophils % 0.4 Basophils % 0.4 Nucleated RBC % 0 Absolute Neutrophils 6.50 Absolute Lymphocytes 2.07 Absolute Monocytes 0.53 Absolute Eosinophils 0.04 Absolute Basophils 0.04 D-Dimer 390 Sodium 142 Potassium 3.8 Chloride 105 Carbon Dioxide 26.4 Anion Gap 10.6 BUN 13 Creatinine 1.1 H Estimated GFR/1.73 m2 50.50 Glucose 106 Calcium 10.1 Magnesium 2.3 Total Bilirubin 0.5 AST 28 ALT 44 Alkaline Phosphatase 94 Troponin I < 0.05 Total Protein 7.5 Albumin 4.0 01/03/21 18:05 WBC RBC Hgb Hct MCV MCH MCHC RDW Plt Count MPV Immature Gran % Neutrophils % Lymphocytes % Monocytes % Eosinophils % Basophils % Nucleated RBC % Absolute Neutrophils Absolute Lymphocytes Absolute Monocytes Absolute Eosinophils Absolute Basophils D-Dimer Sodium Potassium Chloride Carbon Dioxide Anion Gap BUN Creatinine Estimated GFR/1.73 m2 Glucose Calcium Magnesium Total Bilirubin AST ALT Alkaline Phosphatase Troponin I 0.05 Total Protein Albumin Last Vital Signs Temp 36.1 C L 01/03/21 14:23 Pulse 63 01/03/21 18:30 Resp 22 01/03/21 18:40 BP 140/77 01/03/21 18:30 Pulse Ox 95 01/03/21 18:40 COVID-19 Screening Have you, or household traveled for leisure in last 14 days?: No Had IN PERSON contact w/suspected or confirmed C-19 person: No
[2021-01-03] MEDS: Acetaminophen 325 MG TAB 650 MG PO (21:27)
[2021-01-03] MEDS: Normal Saline Flush 10 ML SYR (21:30)
[2021-01-03 21:34] LABS: Troponin I < 0.05 ng/mL (<0.06)
[2021-01-04] VITALS (19 sets, daily range): BP systolic 95–145; BP diastolic 42–103; PULSE 53–88; RESP 12–21; TEMP 35.8–36.6; O2SAT 96–100
--- NOTE | 2021-01-04 | ETT_ITS ---
APPROVED REPORT Exam: Exercise Treadmill Patient Location: In-Patient Room/Bed: 221 Stress Nurse: Amanda Almaraz RN Ordering Provider:CHRYSTAL NIEVES, Contact Number: BMI: 35.34 Baseline Rhythm: Sinus Rhythm, RBBB, PVCs Indications: CHEST PAIN Medical History Medical History: HLD Cardiac Medications: Aspirin (started inpatient) Allergies: No known drug allergies Cardiac Risk Factors: Hyperlipidemia, FHX of CAD, Obesity Previous Cardiac Procedures: None Pretest Chest Pain Characteristics: No chest pain Exercise History: Sedentary Physical Disabilities: None Lung Sounds: Clear to auscultation Heart Sounds: Regular Stress Test Details Test: Exercise stress testing was performed using a Anthony protocol. Rest Stress HR Resting HR Supine: 81 bpm Max Heart Rate (APMHR): 159 bpm Resting HR Standin bpm Target HR (85% APMHR): 135 bpm Max HR Achieved: 107 bpm % of APMHR: 67 Recovery HR: 67 bpm HR response to stress: Normal HR response to stress Comment: DID NOT REACH TARGET HEART RATE. BP Resting BP Supine: 138/76 mmHg Resting BP Standin/80 mmHg Max BP: 144/78 mmHg Recovery BP: 130/78 mmHg BP response to stress: Normal blood pressure response to stress. ECG Resting ECG: Sinus Rhythm, RBBB Ectopy: occasional PVCs Comment: T wave inversion lead III, aVR, V1 Stress ECG: Sinus Tachycardia, RBBB ST Change: No significant ST segment changes noted Arrhythmia: PACs, PVC Recovery ECG: Sinus Rhythm, RBBB Recovery ST Change: No significant ST segment changes noted Recovery Arrhythmia: PACs, PVCs Clinical Reason for Termination: Chest pain/Anginal equivalent Stress Symptoms: Chest pain Exercise duration: 4 min23 sec Highest Stage Reached: Stage 2: 2.5 mph at 12% grade. Exercise capacity: 6.3 METs Aranda Treadmill Score: -4.8 Rate Pressure Product: [id number] Stress ECG Conclusion 1. The resting electrocardiogram showed right bundle branch block 2. Patient exercised on the Anthony protocol and completed a workload of 6.3 METS. Reportedly the test was stopped due to chest pain 3. Blunted heart rate and blood pressure response to exercise. The patient achieved 67% of maximum p redicted heart rate for age 4. Electrocardiographically the test was nondiagnostic due to inadequate heart rate. No EKG changes consistent with ischemia were noted at submaximal heart rate 5. Occasional atrial premature beats, ventricular premature beats Aranda Treadmill Score is -4.8 which is Moderate risk. Stress Test Summary STAGE Time (mins) Speed (mph) Grade (%) HR BP SYMPTOMS METS Supine 81 138/76 Standing 81 138/80 1 3 1.7 10 102 142/74 c/o chest pain 4.6 2 6 2.5 12 terminated test d/t CP 7 1 min recovery 79 dizziness 3 min recovery 68 144/78 6 min recovery 67 130/78 NONDIAGNOSTIC STRESS TEST. Treadmill test stopped by nuclear worker technician due to patient report of significant chest pain. During exercise, at 1min 30 sec, patient c/o 3/10 chest pain described as tightness. 2 mi n 45 sec 4/10 chest pain. 3 min 20 sec reports 5/10 chest pain r/t throat, causing a cough. Just befo re cessation of exercise patient reports 7/10 chest pain with cough. Test terminated by tech at 4 min 23 sec. Patient reports dizziness with stopping exercise and 9/10 chest tightness. Chest pain severi ty decreased at rest, resolved by 6 minute recovery. Denies another other associated symptoms other t horne throat tightness and cough with chest pain.
--- NOTE | 2021-01-04 08:24 | INITIAL_ITS ---
- If Service Date Differs Date of service: 01/04/21 Time of Service: 08:24 Care Management Initial Assess REASON FOR HOSPITALIZATION:: Chest Pain PAST MEDICAL HISTORY/PAST SURGICAL HISTORY:: Medical History . Kidney stones. Surgical History . S/P hysterectomy PREVIOUS FUNCTIONAL STATUS/SOCIAL/FAMILY SUPPORTS:: Leora lives in [place] Her 92 year old mother has been living with her since July. 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 She is active and independent at baseline and receives no community services. She has 2 brothers that both live out of state; one lives in [place] and the other in [place]. CURRENT FUNCTIONAL STATUS:: Leora was sitting up in a chair when CM met with her. She was very pleasant and engaged readily with CM. Leora talked a lot about her Mom and the decision to have her come to live with her. Leora shared that it has been a challenging and stressful time, but admitted that she is glad that she made the decision she did. She is faced with the challenge of emptying out the family home and getting it ready for sale and understands that her brothers may not be able to provide much support with the process. Leora also talked about her career and the many clients she has had for decades. She acknowledged that she has enjoyed her chosen career but lately has been considering reducing her hours and semi-retiring. ADVANCE DIRECTIVES:: none on file. David has discussed this frequently with her PCP. She has a copy and will complete them when able. CM offered to assist with the process. Has patient been provided with info about the portal/API?: Yes Did the patient sign up for the portal?: No CODE STATUS:: Full Code INSURANCE COVERAGE / FINANCIAL ISSUES:: Medicaid CURRENT HOME/COMMUNITY SERVICES/EQUIPMENT:: none PRIMARY CARE PHYSICIAN:: Jodie Franklin POTENTIAL DISCHARGE NEEDS:: follow up with PCP and Cardiology PATIENT/FAMILY EDUCATION NEEDS:: Review discharge plan, meds, activity, limitations, Ask Me Three ANTICIPATED BARRIERS TO DISCHARGE:: may require transfer to a tertiary care facility TRANSPORTATION:: via private vehicle with friend PLAN:: Leora will likely be discharged home with no new services if her stress test is negative. If not she will be transferred to a tertiary care facility. Her transportation will be determined by disposition. CM will continue to support Leora and her discharge planning needs.
[2021-01-04] MEDS: Aspirin 325 MG TAB PO (08:55)
[2021-01-04 10:27] LABS: Source Nasal/Nares
[2021-01-04 11:08] LABS: COVID-19 PCR Negative (Negative); Influenza A PCR Negative (Negative); Influenza B PCR Negative (Negative); RSV PCR Negative (Negative)
--- NOTE | 2021-01-04 13:44 | W.PM.DS.N ---
Date of service: 01/05/21 Time of Service: 10:04 DS: Diagnosis Discharge Diagnosis (1) Chest pain: Status: Acute Discharge Plan Disposition Patient Disposition: [facility] Condition: Stable Discharge Details Reason For Visit: CP Admit Date/Time: 01/04/21 16:56 Admit Provider: Juarez Rodriguez Attending Provider: Ubaldo Byrne Primary Care Provider: Jodie Franklin [facility] Course Hospital Course: This is a 60 year old female with HLD and strong FH CAD. She presented with five days of exertional CP: not sharp diffuse radiation across chest into neck and shoulders (in neck it feels like a pressure). She endorsed that the pain occurs only with significant exertion (eg, running up stairs, vigorous gardening) and relieved with rest within 10-15 minutes. However the episode that caused her to present to the ED occured while walking in a store (she does state she typically walks at a fast clip). No associated SOB, nausea, diaphoresis. In ER findings of note for trop neg x2, EKG with NSIVCD (no prior) but no STTW changes. She was admitted to compete r/o and for further valuation. Her 3rd troponin was negative. Exercise stress testing performed: She did not achieve optimal METS for diagnositic Anthony Protocol. She did develop chest pain similar to that which she had been experiencing prior to admission. The following AM her troponin was + at 0.16. She has been accepted on the cardiology service at [facility] with plans for a cardiac catheterization. Home Meds and New Rx's Prescriptions: New acetaminophen [Tylenol] 325 mg Tablet 650 mg PO Q4H PRN PRNQty: 0 RF: 0 aspirin 325 mg Tablet 81 mg PO DAILY Qty: 0 RF: 0 atorvastatin 40 mg Tablet 40 mg PO DAILY Qty: 0 RF: 0 heparin(porcine) in 0.45% NaCl 25,000 unit/250 mL Parenteral Solution 25,000 unit IV INFUSION Qty: 0 RF: 0 Continued multivitamin Tablet 1 tab PO DAILY RF: 0 Discontinued ibuprofen [Advil] 200 mg Tablet 200 mg PO Q6H PRNRF: 0 Discharge Instructions Activity:: bedrest/up to commode Diet:: NPO Discharge Orders Discharge Orders: Discharge Order (Routine); Ordered 01/05/21 Ordered By: Ubaldo Byrne DS: Summary Time Spent with Patient providing and/or coordinating discharge services: Greater than 30 minutes Status at Discharge Functional status at discharge: independent ambulation Overall status at discharge: patient is not back to baseline Mental Status: mental status grossly normal Speech and Movement: speech and movement normal Mood: congruent mood Affect: normal affect Exam Psych Mental Status: mental status grossly normal Speech and Movement: speech and movement normal Mood: congruent mood Affect: normal affect DS: Data Vitals/I&O Vitals and I&O: Vital Signs Temperature 36.6 C 01/04/21 12:29 Temperature Source Temporal Artery Scan 01/04/21 12:29 Pulse 74 01/04/21 12:29 Pulse 77 01/04/21 09:13 Respiratory Rate 18 01/04/21 12:29 Respiratory Effort Non-Labored 01/04/21 08:00 Respiratory Depth Normal 01/04/21 08:00 Respiratory Pattern Normal 01/04/21 08:00 Blood Pressure 105/42 L 01/04/21 12:29 Blood Pressure Mean 79 01/04/21 09:13 Blood Pressure Position Sitting 01/03/21 14:23 Pulse Oximetry 99 01/04/21 12:29 Oxygen Delivery Method Room Air 01/04/21 12:29 Oxygen Flow Rate 0 01/04/21 12:29 Pain Level 0 01/04/21 12:29 Intake & Output 01/03/21 01/04/21 01/04/21 23:59 11:59 23:59 Intake Total 400 / 400 Output Total 100 / 100 Balance 300 / 300 Weight 82.3 kg Intake: Oral 400 / 400 Output: Urine 100 / 100 Other: Urine Color Yellow Yellow Urine Appearance Clear Clear Urine Odor Normal Comment urine occurence x1 urine occurence x1on toilet, not measured. Voiding Methods Toilet Bedside Commode Data Completed and Pending Labs on day of discharge: Labs from last 24 hours 01/04/21 01/03/21 01/03/21 10:10 21:09 18:05 WBC RBC Hgb Hct MCV MCH MCHC RDW Plt Count MPV Immature Gran % Neutrophils % Lymphocytes % Monocytes % Eosinophils % Basophils % Nucleated RBC % Absolute Neutrophils Absolute Lymphocytes Absolute Monocytes Absolute Eosinophils Absolute Basophils D-Dimer Sodium Potassium Chloride Carbon Dioxide Anion Gap BUN Creatinine Estimated GFR/1.73 m2 Glucose Calcium Magnesium Total Bilirubin AST ALT Alkaline Phosphatase Troponin I < 0.05 0.05 Total Protein Albumin COVID-19 Source Nasal/nares SARS-CoV-2 (PCR) Negative Influenza Type A (PCR) Negative Influenza Type B (PCR) Negative RSV (PCR) Negative 01/03/21 01/03/21 01/03/21 15:52 14:43 14:43 WBC 9.22 RBC 4.90 Hgb 15.2 Hct 44.7 MCV 91.2 MCH 31.0 MCHC 34.0 RDW 12.4 Plt Count 318 MPV 9.8 Immature Gran % 0.4 Neutrophils % 70.6 Lymphocytes % 22.5 Monocytes % 5.7 Eosinophils % 0.4 Basophils % 0.4 Nucleated RBC % 0 Absolute Neutrophils 6.50 Absolute Lymphocytes 2.07 Absolute Monocytes 0.53 Absolute Eosinophils 0.04 Absolute Basophils 0.04 D-Dimer 390 Sodium 142 Potassium 3.8 Chloride 105 Carbon Dioxide 26.4 Anion Gap 10.6 BUN 13 Creatinine 1.1 H Estimated GFR/1.73 m2 50.50 Glucose 106 Calcium 10.1 Magnesium 2.3 Total Bilirubin 0.5 AST 28 ALT 44 Alkaline Phosphatase 94 Troponin I < 0.05 Total Protein 7.5 Albumin 4.0 COVID-19 Source SARS-CoV-2 (PCR) Influenza Type A (PCR) Influenza Type B (PCR) RSV (PCR) PFSH Medical History Kidney stones Surgical History S/P hysterectomy Social History Smoking/Tobacco Use Status: Never Smoking risk assessment performed?: Yes Alcohol Intake: never Substance use type: does not use Do you feel safe at home: Yes Do you feel safe in your relationship?: Yes
--- NOTE | 2021-01-04 16:19 | W.PM.PROGNOT ---
Date of Service Date of service: 01/04/21 Time of Service: 16:19 Assessment and Plan Assessment and plan (1) Chest pain: Status: Acute Assessment and plan: Nondiagnostic treadmill test today. She did not meet target HR. Test stopped for CP. No EKG changes noted. NM MPI stress test ordered for (unavailable tomorrow / Sun.). Telemetry. Rest in bed or chair. Subjective Subjective Patient reports: afebrile; denies nausea and vomiting Interval history since last seen: Pt did not c/o chest pain this AM. No palpitations. Exam Const General: cooperative and no acute distress Nutritional Appearance: obese Orientation: alert and oriented x3 Resp Effort & Inspection: normal respiratory effort Auscultation: clear to auscultation bilaterally Cardio Rate: regular rate Rhythm: regular rhythm Heart Sounds: S1 normal and S2 normal GI Palpation: soft and nontender Extrem General: no pedal edema and no calf tenderness Objective Last Vital Signs Temp 36.6 C 01/04/21 12:29 Pulse 74 01/04/21 12:29 Resp 18 01/04/21 12:29 BP 105/42 L 01/04/21 12:29 Pulse Ox 99 01/04/21 12:29 Laboratory Results - last 24 hr 01/03/21 01/03/21 01/03/21 15:52 18:05 21:09 D-Dimer 390 Troponin I 0.05 < 0.05 COVID-19 Source SARS-CoV-2 (PCR) Influenza Type A (PCR) Influenza Type B (PCR) RSV (PCR) 01/04/21 10:10 D-Dimer Troponin I COVID-19 Source Nasal/nares SARS-CoV-2 (PCR) Negative Influenza Type A (PCR) Negative Influenza Type B (PCR) Negative RSV (PCR) Negative
[2021-01-04] MEDS: Acetaminophen 325 MG TAB 650 MG PO ×2 (16:50→20:48)
[2021-01-04] MEDS: Zolpidem 5 MG TAB PO (20:48)
[2021-01-05] VITALS (11 sets, daily range): BP systolic 109–115; BP diastolic 53–75; PULSE 55–66; RESP 16–20; TEMP 36–36.2; O2SAT 97–98
[2021-01-05 08:00] LABS: Troponin I 0.16 ng/mL (<0.06)
--- NOTE | 2021-01-05 08:00 | RT.EKG_ITS ---
APPROVED REPORT Exam: Resting ECG Reason for Exam: Elevated troponin Patient Location: I HR:59 bpm ECG Measurements Heart Rate 59 AXIS OK 155 P 45 QRSd 133 QRS 39 QT 408 T -5 QTc 405 Conclusion Sinus bradycardia...rate< 60 Right bundle branch block...QRSd>120, terminal axis(90,270)
[2021-01-05] MEDS: Aspirin 325 MG TAB PO (08:06)
[2021-01-05] MEDS: Atorvastatin 40 MG TAB PO (10:02)
[2021-01-05 11:03] LABS: PTT Activated 22.1 sec (21.0-27.5)
[2021-01-05 11:16] LABS: Troponin I 0.23 ng/mL (<0.06)
--- NOTE | 2021-01-05 12:56 | NUR.NOTE ---
Pt's blue P[employer] Cross car is in the ER parking lot. Pt has arranged for her friend to mushroom picker her car either on 01/05 or 01/06. Pt has directed her friend to ask for the car keys from the [facility] when she arrives to [facility]. [facility] personnel generalist managerjaspal Damico, contacted and has agreed to keep pt's car keys in the [facility] office until patient's friend arrives to mushroom picker her car.
--- NOTE | 2021-01-05 16:07 | CMDISCH_ITS ---
- If Service Date Differs Date of service: 01/05/21 Time of Service: 16:07 LACE Index Scoring Tool - Questions: Length of Stay (in days): 1 Acuity (Admit via E.D.?): Yes E.D. Visits: 3 - Answers: Total Score: 7 Risk of Readmission: Low Risk Care Management Discharge Reason for Hospitalization: Chest Pain Discharge Plan: Leora will be transferred to [facility] [place] today when a bed is available. She will follow up with their providers and plan of care. Leora will transport via ambulance cooedinated by nursing filling and packing supervisor. Patient/Family Education Needs: Expectations, follow up plan, Ask Me Three
--- NOTE | 2021-01-05 18:38 | NUR.NOTE ---
Nursing Note: [facility] called to let us know at this moment there is no bed available for Leora Simpson. They are hoping to get a bed tonight--they will call us when a bed becomes avail able. They also confirmed if patient was to transfer tonight she would not have her procedure tonight therefore, she can have something to eat.
[2021-01-05 19:17] LABS: PTT Activated 62.4 sec (21.0-27.5)
== END 2021-01-05 19:33 | disposition short-term general hospital (02) | DRG 313 ==
LOC: ER 19:31 → ICU 20:36
PROVIDERS: Physician Assistant; Admitting Provider General Practice; Emergency Provider Physician Assistant; PCP Nurse Practitioner Family; Visit Provider Family Medicine
DX: R07.9 Chest pain, unspecified (principal); E78.5 Hyperlipidemia, unspecified; Z82.49 Family history of ischemic heart disease and other diseases of the circulatory system; Z20.822 Contact with and (suspected) exposure to COVID-19
CPT/HCPCS: 36415; 80053; 87637; 93005; 99285; 71046; 83735; 84484; 85025; 85379; 85730; 93010; 93017; 99219; 99232; G0378

== ENCOUNTER 2021-01-12 03:06 | Outpatient (CLI) | payer MEDICAID, SELFPAY ==
[2021-01-12 13:49] LABS: Anion Gap 8.7 mmol/L (3-11); BUN 14 mg/dL (7-18); CO2 27.3 mmol/L (21.0-32.0); Calcium 9.9 mg/dL (8.5-10.1); Chloride 106 mmol/L (98-107); Estimated GFR 56.37 (mL/min/1.73m2); Glucose 96 mg/dL (74-106); Potassium 4.2 mmol/L (3.5-5.1); Sodium 142 mmol/L (136-145)
== END 2021-01-12 03:07 | disposition home or self-care (01) ==
PROVIDERS: PCP Nurse Practitioner Family
DX: I25.10 Atherosclerotic heart disease of native coronary artery without angina pectoris (principal)
CPT/HCPCS: 36415; 80048

== ENCOUNTER 2021-01-28 14:28 | Outpatient (RCR) | payer MEDICAID, SELFPAY | END 2021-01-31 23:59 | disposition home or self-care (01) | LOC: CR 14:28 | PROVIDERS: PCP Nurse Practitioner Family; Visit Provider Family Medicine | DX: Z51.89 Encounter for other specified aftercare (principal); Z95.5 Presence of coronary angioplasty implant and graft | CPT/HCPCS: S9472 ==

== ENCOUNTER 2021-02-09 02:38 | Outpatient (CLI) | payer MEDICAID, SELFPAY ==
[2021-02-09 07:59] LABS: Abs Immature Grans 0.02 10^3/uL (0.0-0.06); Absolute Basophil Count 0.05 10^3/uL (0.0-0.2); Absolute Eosinophil Count 0.19 10^3/uL (0.0-0.7); Absolute Lymphocyte Count 1.51 10^3/uL (1.2-3.4); Absolute Monocyte Count 0.43 10^3/uL (0.1-0.8); Absolute Neutrophil Count 4.73 10^3/uL (1.2-6.7); Basophils % 0.7; Eosinophils % 2.7; HCT 44.9 % (36.0-46.0); HGB 14.5 g/dL (11.2-15.7); Immature Grans % 0.3; Lymphocytes % 21.8; MCH 30.5 pg (27.0-33.0); MCHC 32.3 % (32.0-36.0); MCV 94.3 fL (80-95); MPV 9.6 fL (8.0-11.0); Monocytes % 6.2; Neutrophils % 68.3; Nucleated RBC 0 %; Platelet Count 261 10^3/uL (130-400); RBC 4.76 10^6/uL (3.93-5.22); RDW-SD 44.6 fL; WBC 6.93 10^3/uL (4.4-10.8)
[2021-02-09 09:01] LABS: ALT 43 U/L (14-59); AST 24 U/L (15-37); Alkaline Phosphatase 111 U/L (46-116); Anion Gap 5.7 mmol/L (3-11); BUN 14 mg/dL (7-18); Bilirubin, Total 0.5 mg/dL (0.2-1.0); CO2 31.3 mmol/L (21.0-32.0); Calcium 9.7 mg/dL (8.5-10.1); Chloride 107 mmol/L (98-107); Estimated GFR 56.37 (mL/min/1.73m2); Glucose 91 mg/dL (74-106); Potassium 4.7 mmol/L (3.5-5.1); Sodium 144 mmol/L (136-145)
[2021-02-10 11:38] LABS: Erythropoietin 9.2 mIU/mL (2.6 - 18.5)
[2021-02-15 19:09] LABS: JAK2 Sequencing Result see interpretation
== END 2021-02-09 02:39 | disposition home or self-care (01) ==
LOC: LBO 02:38
PROVIDERS: PCP Nurse Practitioner Family; Visit Provider Internal Medicine Hematology & Oncology
DX: D45 Polycythemia vera (principal)
CPT/HCPCS: 0027U; 36415; 80053; 82668; 85025

== ENCOUNTER 2021-02-11 15:38 | Outpatient (REF) | payer MEDICAID, SELFPAY ==
[2021-02-11 13:55] LABS: ALT 50 U/L (14-59); AST 33 U/L (15-37); Albumin 4.2 g/dL (3.4-5.0); Alkaline Phosphatase 117 U/L (46-116); Anion Gap 5.7 mmol/L (3-11); BUN 16 mg/dL (7-18); Bilirubin, Total 0.7 mg/dL (0.2-1.0); CO2 30.3 mmol/L (21.0-32.0); Calcium 9.8 mg/dL (8.5-10.1); Calculated LDL 60 mg/dL (<100); Chloride 108 mmol/L (98-107); Cholesterol 126 mg/dL (<200); Estimated GFR 56.37 (mL/min/1.73m2); Glucose 97 mg/dL (74-106); HDL Cholesterol 43 mg/dL (40-60); Potassium 4.7 mmol/L (3.5-5.1); Sodium 144 mmol/L (136-145); Total Protein 7.3 g/dL (6.4-8.2); Triglyceride 118 mg/dL (<150)
== END 2021-02-11 15:39 | disposition home or self-care (01) ==
LOC: NCHCN 15:38
PROVIDERS: PCP Nurse Practitioner Family; Visit Provider Nurse Practitioner Family
DX: E83.52 Hypercalcemia (principal); R94.5 Abnormal results of liver function studies; E78.5 Hyperlipidemia, unspecified
CPT/HCPCS: 80053; 80061

== ENCOUNTER 2021-03-02 13:00 | Outpatient (RCR) | payer MEDICAID, SELFPAY | END 2021-03-02 23:59 | disposition home or self-care (01) | LOC: CR 13:00 | PROVIDERS: PCP Nurse Practitioner Family; Visit Provider Family Medicine | DX: Z51.89 Encounter for other specified aftercare (principal); Z95.5 Presence of coronary angioplasty implant and graft | CPT/HCPCS: S9472 ==

== ENCOUNTER 2021-04-01 13:00 | Outpatient (RCR) | payer MEDICAID, SELFPAY | END 2021-04-02 23:59 | disposition home or self-care (01) | LOC: CR 13:00 | PROVIDERS: PCP Nurse Practitioner Family; Visit Provider Family Medicine | DX: Z51.89 Encounter for other specified aftercare (principal); Z95.5 Presence of coronary angioplasty implant and graft | CPT/HCPCS: S9472 ==

== ENCOUNTER 2021-04-10 17:10 | Emergency (ER) | payer MEDICAID, SELFPAY ==
[2021-04-10 17:35] VITALS: BP 142/79; PULSE 66; RESP 16; TEMP 36.8; O2SAT 99
[2021-04-10] MEDS: oxyCODONE 5 MG TAB PO (18:36)
--- NOTE | 2021-04-10 18:42 | DI.RAD_ITS ---
Exam(s) XR FINGER LT MIDDLE EXAM: XR FINGER LT MIDDLE CLINICAL HISTORY: tender swollen finger. TECHNIQUE: 2D digital imaging was performed. COMPARISON: None. FINDINGS: BONES: No acute fracture is present. No bony destructive lesion is seen. JOINTS: No dislocation present. SOFT TISSUE: Distal soft tissue swelling. No foreign body. No abnormal gas collection. IMPRESSION: Soft tissue swelling. DATA REPOSITORY: RADIATION DOSE DELIVERED:
--- NOTE | 2021-04-10 20:01 | DI.VRAD_ITS ---
PROCEDURE INFORMATION: Exam: XR Left Finger(s) Exam date and time: 04/10/2021 6:28 PM Age: 61 years old Clinical indication: Pain; Finger(s); Left TECHNIQUE: Imaging protocol: XR Left fingers. Views: Minimum 2 views. COMPARISON: No relevant prior studies available. FINDINGS: Bones/joints: No suspicious osseous lytic or blastic lesion. No acute fracture or dislocation. Joint spaces are preserved. Soft tissues: Soft tissue is focally thickened with increased opacity along the volar surface of the distal 3rd finger. IMPRESSION: 1. No acute fracture or dislocation. 2. Focal soft tissue thickening with increased opacity along the volar surface of the distal 3rd finger, correlate with physical exam for soft tissue edema. If soft tissue mass is a concern, also may consider focused ultrasound. Dictated and Authenticated by: Mason Grace MD. Ordering:BUNNY Tracey MD
--- NOTE | 2021-04-10 20:27 | ED.GENADUL_ITS ---
Discharge Plan Disposition Patient Disposition: HOME Condition: Good Discharge Details Clinical Impression: Finger swelling Primary Care Provider: Jodie Franklin ED Provider: Kyung Bruner Home Meds and New Rx's Prescriptions: Continued acetaminophen [Tylenol] 325 mg Tablet 650 mg PO Q4H PRN PRNQty: 0 RF: 0 aspirin 325 mg Tablet 81 mg PO DAILY Qty: 0 RF: 0 atorvastatin 40 mg Tablet 40 mg PO DAILY Qty: 0 RF: 0 heparin(porcine) in 0.45% NaCl 25,000 unit/250 mL Parenteral Solution 25,000 unit IV INFUSION Qty: 0 RF: 0 multivitamin Tablet 1 tab PO DAILY RF: 0 Discharge Instructions Additional Instructions: ice, elevate tylenol 1 gram every 6 hours for the next 3 [address] keep wrap in [address] call orthopedics tomorrow if you don't receive a call return earlier with spreading redness, fever, worsening pain Referrals: Giovanny Finch MD [ [facility] STAFF PHYSICIAN] - Medical Decision Making Patient appears well, x-ray shows swelling and a possible avulsion fracture, patient placed in a bulky wrap and placed on orthopedic follow-up list We will take Tylenol and aspirin for pain Discharged home in stable condition with stable vitals, low threshold to return with new or worsening complaints Ice recommended No evidence of cardiac etiology of patient's symptoms, reproducible tenderness with swelling with induration to the affected extremity HPI General Mode of arrival: ambulatory . Date/Time Provider Initiated Documentation: 04/10/21 18:12 . Limitations to Documentation: no limitations . Information obtained by: patient . HPI Narrative: 61-year-old female with history of coronary artery disease presents with report of finger swelling and pain to left third digit. She denies any additional complaints. She denies known injury to the affected area. She states since taking Tylenol for discomfort without alleviation in her symptoms. She denies any fever or chills. She denies history of similar symptoms in the past. She is status post cardiac catheterization which occurred approximately 3 months ago. She states that uneventful and she is symptomatically improved at this time. She states that this was in her right arm. She denies any numbness or tingling. Denies any skin discoloration awoke her from sleep at 2 AM this morning. Related Data Home Medications Medication Instructions Recorded Confirmed multivitamin 1 tab PO DAILY 06/03/20 01/03/21 acetaminophen [Tylenol] 650 mg PO Q4H PRN PRN #0 tab 01/05/21 aspirin 81 mg PO DAILY #0 tab 01/05/21 atorvastatin 40 mg PO DAILY #0 tab 01/05/21 heparin(porcine) in 0.45% NaCl 25,000 unit IV INFUSION #0 ml 01/05/21 Previous Rx's Medication Instructions Recorded acetaminophen [Tylenol] 650 mg PO Q4H PRN PRN #0 tab 01/05/21 aspirin 81 mg PO DAILY #0 tab 01/05/21 atorvastatin 40 mg PO DAILY #0 tab 01/05/21 heparin(porcine) in 0.45% NaCl 25,000 unit IV INFUSION #0 ml 01/05/21 Allergies Allergy/AdvReac Type Severity Reaction Status Date / Time No Known Allergies Allergy Unverified 01/27/21 11:19 General Stated Complaint: GenMedical GENOVEVA: 3 Review of Systems All systems reviewed & are unremarkable except as noted in HPI and below PFSH Medical History Kidney stones Surgical History S/P hysterectomy Social History Smoking/Tobacco Use Status: Never Smoking risk assessment performed?: Yes Alcohol Intake: never Substance use type: does not use Do you feel safe at home: Yes Do you feel safe in your relationship?: Yes Exam Resp Effort & Inspection: normal respiratory effort Cardio Rate: regular rate Rhythm: regular rhythm Extrem Other: Right third digit with swelling and tenderness, no erythema, low suspicion for felon Capillary refill intact, no crepitus,, no lymphangitis Course Vital Signs Vital signs: Vital Signs Temperature 36.8 C 04/10/21 17:35 Pulse 66 04/10/21 17:35 Respiratory Rate 16 04/10/21 17:35 Blood Pressure 142/79 H 04/10/21 17:35 Pulse Oximetry 99 04/10/21 17:35 Temperature 36.8 C 04/10/21 17:35 Temperature Source Skin 04/10/21 17:35 Pulse 66 04/10/21 17:35 Respiratory Rate 16 04/10/21 17:35 Respiratory Effort Non-Labored 04/10/21 17:35 Blood Pressure 142/79 H 04/10/21 17:35 Blood Pressure Position Sitting 04/10/21 17:35 Pulse Oximetry 99 04/10/21 17:35 Oxygen Delivery Method Room Air 04/10/21 17:35 Oxygen Flow Rate 0 04/10/21 17:35 Pain Level 6 04/10/21 18:36
== END 2021-04-10 20:45 | disposition home or self-care (01) ==
PROVIDERS: Emergency Provider Physician Assistant; PCP Nurse Practitioner Family
DX: R22.31 Localized swelling, mass and lump, right upper limb (principal); M79.645 Pain in left finger(s)
CPT/HCPCS: 99283; 73140

== ENCOUNTER 2021-04-14 16:06 | Outpatient (REF) | payer MEDICAID, SELFPAY | END 2021-04-14 16:07 | disposition home or self-care (01) | LOC: NCHCN 16:06 | PROVIDERS: PCP Nurse Practitioner Family; Visit Provider Nurse Practitioner Family | DX: M79.645 Pain in left finger(s) (principal); M79.89 Other specified soft tissue disorders | CPT/HCPCS: 84550 ==

== ENCOUNTER 2021-04-29 13:00 | Outpatient (RCR) | payer MEDICAID, SELFPAY | END 2021-05-03 23:59 | disposition home or self-care (01) | LOC: CR 13:00 | PROVIDERS: PCP Nurse Practitioner Family; Visit Provider Family Medicine | DX: Z51.89 Encounter for other specified aftercare (principal); Z95.5 Presence of coronary angioplasty implant and graft | CPT/HCPCS: S9472 ==

== ENCOUNTER 2021-06-02 14:00 | Outpatient (RCR) | payer SELFPAY ==
[2021-05-10 14:06] VITALS: BP 109/71; PULSE 76
[2021-05-12 14:14] VITALS: BP 112/75; PULSE 52
[2021-05-24 13:57] VITALS: BP 116/65; PULSE 56
[2021-05-26 14:01] VITALS: BP 112/57; PULSE 61
== END 2021-06-02 23:59 | disposition home or self-care (01) ==
LOC: CR 14:00
PROVIDERS: PCP Nurse Practitioner Family; Visit Provider Family Medicine
DX: Z51.89 Encounter for other specified aftercare (principal)

== ENCOUNTER 2021-06-06 01:29 | Outpatient (CLI) | payer MEDICAID, SELFPAY ==
[2021-05-17 14:46] VITALS: BP 129/82; PULSE 64
[2021-05-19 15:09] VITALS: BP 120/69; PULSE 63
[2021-05-31 14:18] VITALS: BP 111/76; PULSE 67
[2021-06-02 13:52] VITALS: BP 123/80; PULSE 59
--- NOTE | 2021-06-06 | DI.MAMMO_ITS ---
Exam(s) MAMMO SCREENING EXAM: MAMMO SCREENING CLINICAL HISTORY: SCREENING,Z12.31 TECHNIQUE: Mammograms were interpreted according to the usual protocol including computer analysis w [employer] CAD system, tomosynthesis and C-view imaging. COMPARISON: 2011 through 2018 FINDINGS: The breasts are composed of mainly fatty density , Breast Density category A. No suspicious masses or suspicious microcalcifications are seen. No skin thickening or abnormal axillary lymph nodes are seen. There has been no significant change from prior exams. IMPRESSION: BI-RADS Category 1, Negative mammogram Yearly screening mammography is recommended. Breast Density - Category A, fatty density. A negative radiographic report should not delay biopsy if a dominant or clinically suspicious mass is present. Up to ten percent of cancers are not identified on mammography. A negative report may reinforce clinical impression. Adenosis and dense breasts may obscure an underlying neoplasm. False positive reports average 6 to 10%. Patient will receive a letter notifying them of these results.
== END 2021-06-06 01:49 ==
PROVIDERS: PCP Nurse Practitioner Family; Visit Provider Nurse Practitioner Family
DX: Z12.31 Encounter for screening mammogram for malignant neoplasm of breast (principal)
CPT/HCPCS: 77063; 77067

== ENCOUNTER 2021-06-30 14:00 | Outpatient (RCR) | payer SELFPAY ==
[2021-06-03 00:10] VITALS: BP 112/57; PULSE 61
[2021-06-07 13:52] VITALS: BP 107/55; PULSE 63
[2021-06-09 14:02] VITALS: BP 122/75; PULSE 60
[2021-06-14 14:46] VITALS: BP 103/70; PULSE 57
[2021-06-16 14:15] VITALS: BP 111/80; PULSE 55
[2021-06-21 13:56] VITALS: BP 117/80; PULSE 59
[2021-06-23 13:53] VITALS: BP 112/75; PULSE 57
[2021-06-28 14:32] VITALS: BP 106/73; PULSE 70
[2021-06-30 15:08] VITALS: BP 124/81; PULSE 67
== END 2021-07-03 23:59 | disposition home or self-care (01) ==
LOC: CR 14:00
PROVIDERS: PCP Nurse Practitioner Family; Visit Provider Family Medicine
DX: Z51.89 Encounter for other specified aftercare (principal); R69 Illness, unspecified

== ENCOUNTER 2021-08-02 14:00 | Outpatient (RCR) | payer SELFPAY ==
[2021-07-04 00:07] VITALS: BP 124/81; PULSE 67
[2021-07-05 13:49] VITALS: BP 113/62; PULSE 62
[2021-07-07 13:50] VITALS: BP 123/79; PULSE 49
[2021-07-12 14:02] VITALS: BP 119/73; PULSE 73
[2021-07-14 14:26] VITALS: BP 111/68; PULSE 65
[2021-07-21 13:56] VITALS: BP 101/70; PULSE 61
[2021-07-26 15:51] VITALS: BP 120/74; PULSE 78
== END 2021-08-02 23:59 | disposition home or self-care (01) ==
LOC: CR 14:00
PROVIDERS: PCP Nurse Practitioner Family; Visit Provider Family Medicine
DX: Z51.89 Encounter for other specified aftercare (principal); R69 Illness, unspecified

== ENCOUNTER 2021-09-01 14:00 | Outpatient (RCR) | payer SELFPAY ==
[2021-08-03 00:16] VITALS: BP 120/74; PULSE 78
[2021-08-04 13:56] VITALS: BP 117/73; PULSE 61
[2021-08-09 14:30] VITALS: BP 104/68; PULSE 62
[2021-08-11 13:27] VITALS: BP 117/73; PULSE 68
[2021-08-16 14:22] VITALS: BP 105/62; PULSE 58
[2021-08-18 14:26] VITALS: BP 117/74; PULSE 65
[2021-08-23 13:45] VITALS: BP 110/62; PULSE 70
[2021-08-25 13:48] VITALS: BP 109/76; PULSE 69
[2021-08-30 14:00] VITALS: BP 100/65; PULSE 68
[2021-09-01 14:45] VITALS: BP 122/70; PULSE 72
== END 2021-09-02 23:59 | disposition home or self-care (01) ==
LOC: CR 14:00
PROVIDERS: PCP Nurse Practitioner Family; Visit Provider Family Medicine
DX: Z51.89 Encounter for other specified aftercare (principal); R69 Illness, unspecified

== ENCOUNTER 2021-09-05 15:03 | Outpatient (RCR) | payer SELFPAY ==
[2021-09-06 13:47] VITALS: BP 100/50; PULSE 57
== END 2021-10-03 23:59 | disposition home or self-care (01) ==
LOC: CR 15:03
PROVIDERS: PCP Nurse Practitioner Family; Visit Provider Family Medicine
DX: R69 Illness, unspecified (principal)

== ENCOUNTER 2021-09-07 01:20 | Outpatient (CLI) | payer MEDICAID, SELFPAY ==
--- NOTE | 2021-09-07 07:00 | DI.US_ITS ---
Exam(s) US RENAL EXAM: US RENAL CLINICAL HISTORY: 4 mm KIDNEY STONE in right kidney,N20.0 TECHNIQUE: Ultrasound performed using standard protocol. COMPARISON: US US ABDOMEN from 09/29/2020 FINDINGS: The kidneys are normal in size and shape. There is no evidence of a renal mass by ultrasound criteri a. There is no hydronephrosis. There is a 4 millimeter in diameter midpole nonobstructing calculus on the right. Urinary bladder is grossly unremarkable in appearance although I contained only 26 cc period, the pat ient did not void. Ureteral jets were nonvisualized. IMPRESSION: Nonobstructing right renal calculus. No other significant findings. DATA REPOSITORY:
== END 2021-09-07 01:40 ==
PROVIDERS: PCP Nurse Practitioner Family; Visit Provider Nurse Practitioner Gerontology
DX: N20.0 Calculus of kidney (principal)
CPT/HCPCS: 76770

== ENCOUNTER 2021-11-15 01:24 | Outpatient (CLI) | payer MEDICAID, SELFPAY ==
[2021-11-15 17:17] LABS: BUN 15 mg/dL (7-18); Calcium 9.6 mg/dL (8.5-10.1); Chloride 108 mmol/L (98-107); Estimated GFR 56.18 (mL/min/1.73m2); Glucose 99 mg/dL (74-106); Potassium 4.1 mmol/L (3.5-5.1); Sodium 142 mmol/L (136-145)
== END 2021-11-15 01:25 | disposition home or self-care (01) ==
PROVIDERS: PCP Nurse Practitioner Family; Visit Provider Nurse Practitioner Family
DX: I25.10 Atherosclerotic heart disease of native coronary artery without angina pectoris (principal)
CPT/HCPCS: 36415; 80048

== ENCOUNTER 2021-11-29 14:00 | Outpatient (RCR) | payer SELFPAY ==
[2021-11-01 14:20] VITALS: BP 130/68; PULSE 67
[2021-11-03 14:23] VITALS: BP 117/73; PULSE 57
[2021-11-08 14:01] VITALS: BP 124/69; PULSE 66
[2021-11-15 13:56] VITALS: BP 130/74; PULSE 71; O2SAT 98
[2021-11-22 13:53] VITALS: BP 101/63; PULSE 62
[2021-11-24 13:49] VITALS: BP 124/76; PULSE 55; O2SAT 96
[2021-11-29 14:04] VITALS: BP 136/76; PULSE 63
[2021-12-01 13:59] VITALS: BP 123/70; PULSE 61
== END 2021-12-01 23:59 | disposition home or self-care (01) ==
LOC: CR 14:00
PROVIDERS: PCP Nurse Practitioner Family; Visit Provider Family Medicine
DX: R69 Illness, unspecified (principal)

== ENCOUNTER 2021-12-29 14:00 | Outpatient (RCR) | payer SELFPAY ==
[2021-12-02 00:17] VITALS: BP 123/70; PULSE 61
[2021-12-06 14:02] VITALS: BP 121/74; PULSE 64
[2021-12-08 13:50] VITALS: BP 108/64; PULSE 58
[2021-12-13 13:59] VITALS: BP 126/72; PULSE 68
[2021-12-15 14:17] VITALS: BP 127/66; PULSE 70
[2021-12-20 13:59] VITALS: BP 111/63; PULSE 64
[2021-12-22 14:51] VITALS: BP 105/63; PULSE 75; O2SAT 97
[2021-12-27 13:54] VITALS: BP 105/68; PULSE 65
[2021-12-29 13:50] VITALS: BP 130/75; PULSE 58
== END 2021-12-31 23:59 | disposition home or self-care (01) ==
LOC: CR 14:00
PROVIDERS: PCP Nurse Practitioner Family; Visit Provider Internal Medicine Cardiovascular Disease
DX: R69 Illness, unspecified (principal)

== ENCOUNTER 2022-01-31 14:02 | Outpatient (RCR) | payer SELFPAY ==
[2022-01-01 00:08] VITALS: BP 130/75; PULSE 58
[2022-01-03 14:05] VITALS: BP 112/69; PULSE 61
[2022-01-05 13:47] VITALS: BP 104/65; PULSE 63
[2022-01-10 13:48] VITALS: BP 120/58; PULSE 58
[2022-01-12 14:00] VITALS: BP 102/67; PULSE 60
[2022-01-24 13:55] VITALS: BP 122/67; PULSE 55
[2022-01-26 13:55] VITALS: BP 112/71; PULSE 82
[2022-01-31 13:51] VITALS: BP 113/61; PULSE 60
== END 2022-01-31 23:59 | disposition home or self-care (01) ==
LOC: CR 14:02
PROVIDERS: PCP Nurse Practitioner Family; Visit Provider Internal Medicine Cardiovascular Disease
DX: R69 Illness, unspecified (principal)

== ENCOUNTER 2022-02-23 03:29 | Outpatient (CLI) | payer MEDICAID, SELFPAY ==
[2022-02-23 15:23] LABS: Abs Immature Grans 0.04 10^3/uL (0.0-0.06); Absolute Basophil Count 0.05 10^3/uL (0.0-0.2); Absolute Eosinophil Count 0.21 10^3/uL (0.0-0.7); Absolute Lymphocyte Count 2.55 10^3/uL (1.2-3.4); Absolute Monocyte Count 0.53 10^3/uL (0.1-0.8); Basophils % 0.6; Eosinophils % 2.4; HCT 47.2 % (36.0-46.0); Immature Grans % 0.5; Lymphocytes % 28.7; MCH 30.5 pg (27.0-33.0); MCHC 33.9 % (32.0-36.0); MCV 90 fL (80-95); MPV 9.4 fL (8.0-11.0); Neutrophils % 61.8; Platelet Count 371 10^3/uL (130-400); RBC 5.24 10^6/uL (3.93-5.22); RDW 13.2 % (11.7-14.6); RDW-SD 43.5 fL; WBC 8.88 10^3/uL (4.4-10.8)
[2022-02-23 16:08] LABS: ALT 67 U/L (14-59); AST 41 U/L (15-37); Albumin 4.4 g/dL (3.4-5.0); Alkaline Phosphatase 114 U/L (46-116); Anion Gap 8.4 mmol/L (3-11); BUN 17 mg/dL (7-18); CO2 28.6 mmol/L (21.0-32.0); CREATININE 0.9 mg/dL (0.55-1.02); Calcium 10.1 mg/dL (8.5-10.1); Calculated LDL 76 mg/dL (<100); Chloride 102 mmol/L (98-107); Cholesterol 163 mg/dL (<200); Glucose 91 mg/dL (74-106); HDL Cholesterol 61 mg/dL (40-60); Potassium 4.4 mmol/L (3.5-5.1); Sodium 139 mmol/L (136-145); Total Protein 8.4 g/dL (6.4-8.2); Triglyceride 133 mg/dL (<150)
== END 2022-02-23 03:30 | disposition home or self-care (01) ==
LOC: LBO 03:29
PROVIDERS: PCP Nurse Practitioner Family; Visit Provider Nurse Practitioner Family
DX: E78.5 Hyperlipidemia, unspecified (principal); K76.0 Fatty (change of) liver, not elsewhere classified; R94.5 Abnormal results of liver function studies; E83.52 Hypercalcemia; N20.0 Calculus of kidney; E66.9 Obesity, unspecified
CPT/HCPCS: 36415; 80053; 80061; 85025

== ENCOUNTER 2022-03-02 14:00 | Outpatient (RCR) | payer SELFPAY ==
[2022-02-01 00:04] VITALS: BP 113/61; PULSE 60
[2022-02-02 14:01] VITALS: BP 109/67; PULSE 55
[2022-02-07 13:50] VITALS: BP 137/78; PULSE 63
[2022-02-09 14:41] VITALS: BP 131/75; PULSE 58
[2022-02-21 14:04] VITALS: BP 117/71; PULSE 59
[2022-02-23 14:40] VITALS: BP 114/63; PULSE 62
[2022-02-28 13:56] VITALS: BP 133/72; PULSE 57
[2022-03-02 13:49] VITALS: BP 105/64; PULSE 57
== END 2022-03-02 23:59 | disposition home or self-care (01) ==
LOC: CR 14:00
PROVIDERS: PCP Nurse Practitioner Family; Visit Provider Internal Medicine Cardiovascular Disease
DX: R69 Illness, unspecified (principal)

== ENCOUNTER 2022-03-30 13:44 | Outpatient (RCR) | payer SELFPAY ==
[2022-03-07 14:23] VITALS: BP 124/74; PULSE 65
[2022-03-09 14:00] VITALS: BP 138/57; PULSE 67
[2022-03-14 13:46] VITALS: BP 116/69; PULSE 61
[2022-03-16 14:33] VITALS: BP 107/66; PULSE 63
[2022-03-21 13:46] VITALS: BP 102/59; PULSE 62
[2022-03-23 13:30] VITALS: BP 113/77; PULSE 66
[2022-03-28 13:45] VITALS: BP 112/68; PULSE 58
[2022-03-30 13:38] VITALS: BP 118/77; PULSE 66
== END 2022-04-02 23:59 | disposition home or self-care (01) ==
LOC: CR 13:44
PROVIDERS: PCP Nurse Practitioner Family; Visit Provider Internal Medicine Cardiovascular Disease
DX: R69 Illness, unspecified (principal)

== ENCOUNTER 2022-05-02 13:51 | Outpatient (RCR) | payer SELFPAY ==
[2022-04-03 00:16] VITALS: BP 118/77; PULSE 66
[2022-04-04 13:30] VITALS: BP 113/74; PULSE 58
[2022-04-11 14:05] VITALS: BP 122/70; PULSE 57
[2022-04-13 13:37] VITALS: BP 96/66; PULSE 57
[2022-04-18 13:46] VITALS: BP 115/78; PULSE 59
[2022-04-20 13:52] VITALS: BP 127/52; PULSE 53
[2022-04-25 13:49] VITALS: BP 102/70; PULSE 56
[2022-04-27 14:04] VITALS: BP 110/71; PULSE 57
[2022-05-02 13:49] VITALS: BP 123/78
== END 2022-05-03 23:59 | disposition home or self-care (01) ==
LOC: CR 13:51
PROVIDERS: PCP Nurse Practitioner Family; Visit Provider Internal Medicine Cardiovascular Disease
DX: R69 Illness, unspecified (principal)

== ENCOUNTER 2022-06-01 14:17 | Outpatient (RCR) | payer SELFPAY ==
[2022-05-04 00:19] VITALS: BP 123/78; PULSE 57
[2022-05-04 13:38] VITALS: BP 107/60; PULSE 54
[2022-05-09 13:54] VITALS: BP 118/73; PULSE 87
[2022-05-11 13:49] VITALS: BP 115/64; PULSE 58
[2022-05-16 13:52] VITALS: BP 102/66; PULSE 57
[2022-05-18 13:52] VITALS: BP 112/73; PULSE 60
[2022-05-23 13:47] VITALS: BP 121/64; PULSE 54
[2022-05-25 13:50] VITALS: BP 97/63; PULSE 58
[2022-05-30 13:52] VITALS: BP 110/68; PULSE 59
[2022-06-01 13:56] VITALS: BP 113/67; PULSE 62
== END 2022-06-02 23:59 | disposition home or self-care (01) ==
LOC: CR 14:17
PROVIDERS: PCP Nurse Practitioner Family; Visit Provider Internal Medicine Cardiovascular Disease
DX: R69 Illness, unspecified (principal)

== ENCOUNTER 2022-06-29 13:56 | Outpatient (RCR) | payer SELFPAY ==
[2022-06-03 00:22] VITALS: BP 113/67; PULSE 62
[2022-06-06 13:54] VITALS: BP 100/62
[2022-06-08 14:00] VITALS: BP 113/75; PULSE 62
[2022-06-13 14:00] VITALS: BP 117/67; PULSE 53
[2022-06-15 13:57] VITALS: BP 93/56; PULSE 70
[2022-06-20 13:58] VITALS: BP 121/74; PULSE 57
[2022-06-22 14:05] VITALS: BP 131/73; PULSE 59
[2022-06-27 13:59] VITALS: BP 118/72; PULSE 56
[2022-06-29 13:54] VITALS: BP 120/69; PULSE 56
== END 2022-07-03 23:59 | disposition home or self-care (01) ==
LOC: CR 13:56
PROVIDERS: PCP Nurse Practitioner Family; Visit Provider Internal Medicine Cardiovascular Disease
DX: R69 Illness, unspecified (principal)
CPT/HCPCS: S9472

== ENCOUNTER 2022-07-04 14:07 | Outpatient (RCR) | payer SELFPAY ==
[2022-07-04 14:49] VITALS: BP 111/69; PULSE 61
[2022-07-06 13:58] VITALS: BP 106/72; PULSE 59
[2022-07-11 14:13] VITALS: BP 112/63; PULSE 61
[2022-07-13 13:58] VITALS: BP 132/73; PULSE 60
[2022-07-18 14:01] VITALS: BP 109/69; PULSE 58
[2022-07-20 14:35] VITALS: BP 120/78; PULSE 56
[2022-08-01 14:11] VITALS: BP 147/80; PULSE 73
== END 2022-08-02 23:59 | disposition home or self-care (01) ==
LOC: CR 14:07
PROVIDERS: PCP Nurse Practitioner Family; Visit Provider Internal Medicine Cardiovascular Disease
DX: R69 Illness, unspecified (principal)

== ENCOUNTER 2022-08-21 14:11 | Outpatient (REF) | payer MEDICAID, SELFPAY ==
[2022-08-21 15:06] LABS: Abs Immature Grans 0.04 10^3/uL (0.0-0.06); Absolute Basophil Count 0.06 10^3/uL (0.0-0.2); Absolute Eosinophil Count 0.22 10^3/uL (0.0-0.7); Absolute Lymphocyte Count 1.85 10^3/uL (1.2-3.4); Absolute Monocyte Count 0.44 10^3/uL (0.1-0.8); Absolute Neutrophil Count 5.59 10^3/uL (1.2-6.7); Basophils % 0.7; Eosinophils % 2.7; HCT 44.3 % (36.0-46.0); HGB 14.7 g/dL (11.2-15.7); Immature Grans % 0.5; Lymphocytes % 22.6; MCH 30.4 pg (27.0-33.0); MCHC 33.2 % (32.0-36.0); MCV 92 fL (80-95); MPV 9.9 fL (8.0-11.0); Monocytes % 5.4; Neutrophils % 68.1; Platelet Count 319 10^3/uL (130-400); RBC 4.83 10^6/uL (3.93-5.22); RDW 12.7 % (11.7-14.6); RDW-SD 42.9 fL
== END 2022-08-21 14:12 | disposition home or self-care (01) ==
LOC: NCHCN 14:11
PROVIDERS: PCP Nurse Practitioner Family; Visit Provider Nurse Practitioner Family
DX: D75.1 Secondary polycythemia (principal); Z12.11 Encounter for screening for malignant neoplasm of colon
CPT/HCPCS: 85025

== ENCOUNTER → 2022-08-30 01:36 | Outpatient (CLI) | payer MEDICAID, SELFPAY ==
--- NOTE | 2022-08-30 06:45 | DI.US_ITS ---
Exam(s) US RENAL EXAM: US RENAL CLINICAL HISTORY: monitoring right kidney stone,N20.0. TECHNIQUE: Eduardo scale, color and spectral Doppler were used. COMPARISON: US US RENAL from 09/07/2021 FINDINGS: Renal size in cm: Right: 10.9. Left: 8.9. Echogenicity: Normal. Hydronephrosis: No. Cyst or mass: No. Nephrolithiasis: There is again seen an echogenic focus in the superior pole measuring 6-7 mm. No hy dronephrosis is present. Other findings: None. Bladder:The urinary bladder cannot be evaluated as the patient was not prepped adequately. Renal color flow: Symmetric and within normal limits. IMPRESSION: 1. Right nephrolithiasis. No hydronephrosis. 2. Urinary bladder could not be evaluated as the patient was not prepped adequately. DATA REPOSITORY:
== END ==
PROVIDERS: PCP Nurse Practitioner Family; Visit Provider Nurse Practitioner Gerontology
DX: N20.0 Calculus of kidney (principal)
CPT/HCPCS: 76770

== ENCOUNTER 2022-08-31 14:27 | Outpatient (RCR) | payer SELFPAY ==
[2022-08-03 00:21] VITALS: BP 147/80; PULSE 73
[2022-08-03 14:07] VITALS: BP 107/66; PULSE 69
[2022-08-15 13:53] VITALS: BP 144/55; PULSE 68
[2022-08-17 13:56] VITALS: BP 129/72; PULSE 64
[2022-08-24 14:07] VITALS: BP 118/71; PULSE 65
[2022-08-29 14:00] VITALS: BP 120/71; PULSE 61
[2022-08-31 14:30] VITALS: BP 117/68; PULSE 63
== END 2022-09-02 23:59 | disposition home or self-care (01) ==
LOC: CR 14:27
PROVIDERS: PCP Nurse Practitioner Family; Visit Provider Internal Medicine Cardiovascular Disease
DX: R69 Illness, unspecified (principal)

== ENCOUNTER 2022-09-12 01:30 | Outpatient (CLI) | payer MEDICAID, SELFPAY ==
--- NOTE | 2022-09-12 | DI.MAMMO_ITS ---
Exam(s) MAMMO SCREENING EXAM: MAMMO SCREENING CLINICAL HISTORY: SCREENING, Z12.31 TECHNIQUE: Bilateral full field digital CC and MLO mammographic images were obtained with 3D tomosyn thesis and utilizing computer aided detection (CAD). COMPARISON: Available for comparison. FINDINGS: Masses/Architectural Distortion: None seen. Microcalcifications: No suspicious pleomorphic-type are seen. Skin Thickening/Nipple Retraction: None. IMPRESSION: 1. No significant interval change with no specific features of malignancy noted. 2. Unless there is more urgent need, screening mammography is recommended, as per [employer] guidelines. BI-RADS Category 1 - Negative Breast Density - Category B - Scattered areas of fibroglandular density Breast density category C or D implies that the patient has dense breast tissue. Dense breast tissue is very common and is not abnormal but dense breast tissue can make it harder to find cancer on a ma mmogram. Also, dense breast tissue may increase their breast cancer risk. This information about the result of the mammogram report was provided to the patient to raise their awareness. Use this report when you speak with the patient about their risks for breast cancer, which includes their family hist ory. At that time, you may recommend for more screening tests (Ultrasound or MRI) as they might be us eful based on their risk. A negative radiographic report should not delay biopsy if a dominant or clinically suspicious mass is present. Up to ten percent of cancers are not identified on mammography. A negative report may reinforce clinical impression. Adenosis and dense breasts may obscure an underlying neoplasm. False positive reports average 6 to 10%. Patient will receive a letter notifying them of these results.
== END 2022-09-12 01:50 ==
PROVIDERS: PCP Nurse Practitioner Family; Visit Provider Nurse Practitioner Family
DX: Z12.31 Encounter for screening mammogram for malignant neoplasm of breast (principal)
CPT/HCPCS: 77063; 77067

== ENCOUNTER 2022-10-03 14:05 | Outpatient (RCR) | payer SELFPAY ==
[2022-09-03 00:11] VITALS: BP 117/68; PULSE 63
[2022-09-07 15:22] VITALS: BP 122/70; PULSE 60
[2022-09-12 14:00] VITALS: BP 107/68; PULSE 59
[2022-09-14 14:19] VITALS: BP 104/64; PULSE 56
[2022-09-19 14:00] VITALS: BP 110/71; PULSE 64
[2022-09-21 14:04] VITALS: BP 104/66; PULSE 56
[2022-09-26 14:06] VITALS: BP 116/73; PULSE 62
[2022-10-03 14:47] VITALS: BP 106/65; PULSE 57
== END 2022-10-03 23:59 | disposition home or self-care (01) ==
LOC: CR 14:05
PROVIDERS: PCP Nurse Practitioner Family; Visit Provider Internal Medicine Cardiovascular Disease
DX: R69 Illness, unspecified (principal)

== ENCOUNTER 2022-10-31 14:04 | Outpatient (RCR) | payer SELFPAY ==
[2022-10-05 14:19] VITALS: BP 103/67; PULSE 62
[2022-10-10 14:04] VITALS: BP 106/64; PULSE 65
[2022-10-17 14:03] VITALS: BP 112/68; PULSE 58
[2022-10-19 15:21] VITALS: BP 101/57; PULSE 65
[2022-10-24 14:14] VITALS: BP 118/60; PULSE 66; O2SAT 98
[2022-10-31 14:21] VITALS: BP 108/65; PULSE 57
== END 2022-10-31 23:59 | disposition home or self-care (01) ==
LOC: CR 14:04
PROVIDERS: PCP Nurse Practitioner Family; Visit Provider Internal Medicine Cardiovascular Disease
DX: R69 Illness, unspecified (principal)

== ENCOUNTER 2022-11-18 04:13 | Emergency (ER) | payer MEDICAID, SELFPAY ==
[2022-11-18] VITALS (119 sets, daily range): BP systolic 110–145; BP diastolic 52–94; PULSE 66–77; RESP 7–32; TEMP 36.7; O2SAT 91–99
--- NOTE | 2022-11-18 04:00 | RT.EKG_ITS ---
APPROVED REPORT Exam: Resting ECG Reason for Exam: fast heart rate Patient Location: E HR:75 bpm ECG Measurements Heart Rate 75 AXIS MT 182 P 64 QRSd 130 QRS 3 QT 385 T -7 QTc 430 Conclusion Sinus rhythm. Right bundle branch block. Nonspecific st changes
--- NOTE | 2022-11-18 04:40 | ED.GENADUL_ITS ---
Discharge Plan Disposition Condition: Stable Discharge Details Chief Complaint: Arrhythmia Clinical Impression: Palpitations Primary Care Provider: Jodie Franklin ED Provider: David Liu Home Meds and New Rx's Prescriptions: No Action lisinopril 2.5 mg tablet 2.5 mg PO DAILY aspirin [Adult Aspirin Regimen] 81 mg tablet,delayed release (DR/EC) 81 mg PO DAILY acetaminophen [Tylenol] 325 mg Tablet 650 mg PO Q4H PRN PRNQty: 0 0RF atorvastatin 40 mg tablet 80 mg PO DAILY Medical Decision Making 62-year-old female who presents from home via EMS. She states she has had years of intermittent episodes of palpitations with no formal diagnosis. Tonight she noted that her smart watch documented pulse 150-160 She states that during these episodes of high heart rate tonight she felt back pain similar to when she had a heart attack requiring percutaneous coronary artery stenting. . Patient presents for evaluation. She denies recent illness. She has had no shortness of breath and no syncope. She arrives improved. I did review the patient's walk findings which do not show tracings but simply heart rates of approximately 150. She was placed on a brick and tile making machine operator, screening labs obtained. Patient's initial laboratories are reassuring. She will be observed and repeat troponin obtained. We will sign the patient out to the oncoming physician, please see the follow-up/progress note. HPI General Mode of arrival: ambulatory . Date/Time Provider Initiated Documentation: 11/18/22 04:28 . Limitations to Documentation: no limitations . Information obtained by: patient . History of Present Illness described as mild and moderate, and is localized to the chest. Patient started experiencing this year(s) and it has been intermittent. No relieving factors improve symptom(s), No exacerbating factors reported . Patient notes denies chest pain, shortness of breath and syncope. Patient did receive the following treatments prior to arrival, none Related Data Home Medications Medication Instructions Recorded Confirmed acetaminophen 325 mg tablet 650 mg PO Q4H PRN PRN #0 tabs 01/05/21 11/18/22 (Tylenol) aspirin 81 mg tablet,delayed 81 mg PO DAILY 05/02/21 11/18/22 release (Adult Aspirin Regimen) lisinopril 2.5 mg tablet 2.5 mg PO DAILY 05/02/21 11/18/22 atorvastatin 40 mg tablet 80 mg PO DAILY 11/18/22 11/18/22 Previous Rx's Medication Instructions Recorded acetaminophen 325 mg tablet 650 mg PO Q4H PRN PRN #0 tabs 01/05/21 (Tylenol) Allergies Allergy/AdvReac Type Severity Reaction Status Date / Time No Known Allergies Allergy Verified 11/18/22 04:23 General Stated Complaint: Arrhythmia GENOVEVA: 3 Review of Systems Narrative: No recent illness. no syncope. 7 systems reviewed and otherwise negative PFSH All Active Problems (Updated 11/18/22 @ 07:16 by David Liu MD) Palpitations (Acute) Finger swelling (Acute) Coronary artery disease (Chronic) stent x 1 01/2021 at [facility] Chest pain (Acute) Kidney stones (Chronic) Surgical History S/P hysterectomy Social History Smoking/Tobacco Use Status: Never Smoking risk assessment performed?: Yes Alcohol Intake: never Substance use type: does not use Do you feel safe at home: Yes Do you feel safe in your relationship?: Yes Exam Narrative Exam Narrative: GEN: awake, alert, oriented 3. Pleasant, well groomed, interactive. HEAD: Normocephalic, atraumatic ENT: Mucous membranes moist, oropharynx unremarkable, External ear exam unremarkable EYES: PERRL, EOMI NECK: Full ROM, no YADI, no menigismus CHEST/RESP: Nontender, clear to auscultation bilateral, no wheeze/rhonchi/rales CARDIOVASCULAR: RRR, no murmur, rub domonique. 2+ Rad pulse bilateral ABDOMEN: Soft, nontender, no mass. +Bowel sounds EXT: Full ROM, no edema, no rash Neuro: Grossly normal neurologic exam, conversant, interactive. Psych: Speech fluent, thoughts congruent, affect normal Course Vital Signs Vital signs: Vital Signs Temperature 36.7 C 11/18/22 04:13 Pulse 77 11/18/22 04:13 Respiratory Rate 15 11/18/22 04:13 Blood Pressure 145/82 H 11/18/22 04:13 Pulse Oximetry 97 11/18/22 04:13 Temperature 36.7 C 11/18/22 04:13 Pulse 77 11/18/22 04:13 Respiratory Rate 15 11/18/22 04:13 Respiratory Effort Normal 11/18/22 04:20 Blood Pressure 145/82 H 11/18/22 04:13 Blood Pressure Position Supine 11/18/22 04:13 Pulse Oximetry 97 11/18/22 04:13 Oxygen Delivery Method Room Air 11/18/22 04:13 Oxygen Flow Rate 0 11/18/22 04:13 Sign Out Sign Out Data: Sign Out Comment: Palpitations at home. Check 4-hour troponin. Consider Holter monitor Last updated by David Liu MD at 11/18/22 07:14
[2022-11-18 04:49] LABS: Abs Immature Grans 0.01 10^3/uL (0.0-0.06); Absolute Basophil Count 0.05 10^3/uL (0.0-0.2); Absolute Eosinophil Count 0.14 10^3/uL (0.0-0.7); Absolute Lymphocyte Count 1.67 10^3/uL (1.2-3.4); Absolute Monocyte Count 0.51 10^3/uL (0.1-0.8); Absolute Neutrophil Count 4.54 10^3/uL (1.2-6.7); Basophils % 0.7; HCT 44.7 % (36.0-46.0); HGB 15.1 g/dL (11.2-15.7); Immature Grans % 0.1; Lymphocytes % 24.1; MCH 30.4 pg (27.0-33.0); MCHC 33.8 % (32.0-36.0); MCV 90 fL (80-95); MPV 9.6 fL (8.0-11.0); Monocytes % 7.4; Neutrophils % 65.7; Platelet Count 258 10^3/uL (130-400); RBC 4.96 10^6/uL (3.93-5.22); RDW 12.5 % (11.7-14.6); RDW-SD 40.9 fL; WBC 6.92 10^3/uL (4.4-10.8)
[2022-11-18 05:03] LABS: Bilirubin Negative (Negative); Blood Trace-intact (Negative); Clarity Clear (Clear); Glucose Negative (Negative); Ketones Negative (Negative); Leukocyte Esterase Trace (Negative); Nitrite Negative (Negative); Urobilinogen 0.2 mg/dL (Up to 0.2)
[2022-11-18 05:11] LABS: Bacteria Few HPF (Negative); C & S Indicated? Yes; Casts Negative LPF (Negative); Crystals Negative HPF (Negative); Epithelial Cells Few HPF (Negative); Mucus Negative (Negative)
[2022-11-18 05:13] LABS: ALT 62 U/L (14-59); AST 41 U/L (15-37); Albumin 3.9 g/dL (3.4-5.0); Alkaline Phosphatase 110 U/L (46-116); BUN 22 mg/dL (7-18); Bilirubin, Total 0.6 mg/dL (0.2-1.0); Calcium 9.6 mg/dL (8.5-10.1); Chloride 105 mmol/L (98-107); Glucose 125 mg/dL (74-106); Magnesium 2.1 mg/dL (1.8-2.4); Potassium 3.6 mmol/L (3.5-5.1); Sodium 137 mmol/L (136-145); TSH (W/Ref FT4) 3.42 uIU/mL (0.36-3.74); Total Protein 7.2 g/dL (6.4-8.2)
[2022-11-18 05:32] LABS: Troponin I 52 ng/L (<or=60)
[2022-11-18 08:24] LABS: Troponin I 72 ng/L (<or=60)
--- NOTE | 2022-11-18 09:16 | W.EDPROG ---
Date of service: 11/18/22 Time of Service: 09:19 Medical Decision Making pt stable in sinus rhythm, rate of 80 and denies any pain or other symptoms now, feels well currently. Her delta troponin is minimally elevated at 72 now up from 52. Suspect she likely was in svt causing her heart rate to be in the 160's, [place] [facility] [place] custodial worker Dr. Banda and reviewed the case with him. He recommended obtaining 3rd troponin to determine if it is significantly increasing. HE also recommended trying to set patient up with outpatient cardiac monitoring, unable to do this on the weekend. HE also recommended starting the patient on metoprolol 25mg bid. Updated patient and she remains stable and asymptomatic. Discussed recommendations with the patient and she is in agreement with this. I also offered to admit for observation until Sunday until zio patch can be obtained. She has decision making capacity and declines to be admitted for observation at this time. patient still asymptomatic 3rd troponin only 86, not significantly increased above the 2nd troponin. She still doesn't want to have an observation admission which I feel is reasonable. Will place order for holter, prescription for metoprolol given and advised to f/u with her pcp and tunnel form placing supervisor, return precautions given Sign Out Sign Out Data: Sign Out Comment: Palpitations at home. Check 4-hour troponin. Consider Holter monitor Last updated by David Liu MD at 11/18/22 07:14 Discharge Plan Disposition Patient Disposition: Home Condition: Stable Discharge Details Clinical Impression: Palpitations Primary Care Provider: Jodie Franklin ED Provider: Karel Colindres Home Meds and New Rx's Prescriptions: New metoprolol tartrate 25 mg tablet 25 mg PO BID 30 Days Qty: 60 0RF Continued lisinopril 2.5 mg tablet 2.5 mg PO DAILY aspirin [Adult Aspirin Regimen] 81 mg tablet,delayed release (DR/EC) 81 mg PO DAILY acetaminophen [Tylenol] 325 mg Tablet 650 mg PO Q4H PRN PRNQty: 0 0RF atorvastatin 40 mg tablet 80 mg PO DAILY Discharge Instructions Instructions: Heart Palpitations (ED) Additional Instructions: follow up with your primary care provider and tunnel form placing supervisor as soon as possible if you develop worsening chest pain, feel more ill or have difficulty breathing return to the emergency department Discharge Orders Other Ambulatory Orders: Holter Monitor (STAT) Timeframe: 20221119 Facility: [facility] - Location: Respiratory Therapy Ordered By: Karel Colindres
--- NOTE | 2022-11-18 10:10 | NUR.NOTE ---
Nursing Note: Report received from Hi JOHNSTON, care assumed
[2022-11-18] MEDS: Metoprolol 25 MG TAB PO (10:14)
--- NOTE | 2022-11-18 10:36 | NUR.NOTE ---
Nursing Note: 3rd troponin drawn and sent to lab
[2022-11-18 11:01] LABS: Troponin I 86 ng/L (<or=60)
--- NOTE | 2022-11-20 12:24 | W.ED.FU ---
Follow Up Plan: Patient notified regarding likely contaminated urine specimen, asymptomatic We will follow-up with primary care physician for repeat urinalysis at their discretion
== END 2022-11-18 11:36 | disposition home or self-care (01) ==
PROVIDERS: Emergency Medicine; Emergency Provider Emergency Medicine; PCP Nurse Practitioner Family
DX: R00.2 Palpitations (principal); M54.9 Dorsalgia, unspecified; I25.2 Old myocardial infarction; Z95.5 Presence of coronary angioplasty implant and graft; Z79.82 Long term (current) use of aspirin
CPT/HCPCS: 80053; 93005; 99283; 81003; 81015; 83735; 84443; 84484; 85025; 87086; 93010; 99284

== ENCOUNTER 2022-11-30 14:09 | Outpatient (RCR) | payer SELFPAY ==
[2022-11-01 00:09] VITALS: BP 108/65; PULSE 57
[2022-11-02 14:05] VITALS: BP 108/67; PULSE 58
[2022-11-07 14:04] VITALS: BP 100/62; PULSE 55
[2022-11-09 14:43] VITALS: BP 115/73; PULSE 95
[2022-11-16 14:08] VITALS: BP 106/72; PULSE 70
[2022-11-21 14:05] VITALS: BP 103/68; PULSE 53
[2022-11-23 14:02] VITALS: BP 150/68; PULSE 66
[2022-11-28 13:58] VITALS: BP 117/68; PULSE 57
[2022-11-30 14:15] VITALS: BP 115/67; PULSE 60
== END 2022-12-01 23:59 | disposition home or self-care (01) ==
LOC: CR 14:09
PROVIDERS: PCP Nurse Practitioner Family; Visit Provider Internal Medicine Cardiovascular Disease

== ENCOUNTER 2022-12-05 14:51 | Outpatient (CLI) | payer MEDICAID, SELFPAY | END 2022-12-05 14:52 | disposition home or self-care (01) | PROVIDERS: PCP Nurse Practitioner Family; Visit Provider Family Medicine | DX: I47.1 Supraventricular tachycardia (principal) | CPT/HCPCS: 93246 ==

== ENCOUNTER 2022-12-25 00:15 | Outpatient (CLI) | payer MEDICAID, SELFPAY ==
--- NOTE | 2022-12-25 06:45 | DI.NM_ITS ---
APPROVED REPORT Exam: Exercise Treadmill Patient Location: Out-Patient Room/Bed: Stress Nurse: Leida Schmitt RN Ordering Provider:DAVID JHA, Contact Number: [phone] BMI: 37.10 Baseline Rhythm: Sinus Rhythm w/ RBBB Indications: Back pain, CAD Medical History Medical History: Hypertension, hyperlipidemia, CAD, chest pain, palpitations Cardiac Medications: Aspirin, atorvastatin, lisinopril, milk thistle Allergies: NKA Cardiac Risk Factors: Hypertension, hyperlipidemia, CVD, family hx Previous Cardiac Procedures: SENTHIL x1 01/2021 Pretest Chest Pain Characteristics: None Exercise History: Physically active Physical Disabilities: None Lung Sounds: Clear to auscultation Heart Sounds: Regular Stress Test Details Test: Exercise stress testing was performed using a Anthony protocol. Nuclear Acquisition: Rest Tc-99m/Stress Tc-99m 1 day Rest Isotope: Tc-99m Sestamibi. Dose: 10.0 Date: 12/25/2022 Injection Time: 0900 Stress Isotope: Tc-99m Sestamibi. Dose: 31.0 Date: 12/25/2022 Injection Time: 1035 HR Resting HR Supine: 61 bpm Max Heart Rate (APMHR): 157.273526 bpm Resting HR Standin bpm Target HR (85% APMHR): 133.920031 bpm Max HR Achieved: 148 bpm % of APMHR: 94.27 Recovery HR: 78 bpm HR response to stress: Normal HR response to stress BP Resting BP Supine: 108/72 mmHg Resting BP Standin/70 mmHg Max BP: 178/78 mmHg Recovery BP: 136/64 mmHg BP response to stress: Normal blood pressure response to stress. ECG Resting ECG: Sinus Rhythm w/ RBBB Ectopy: None Stress ECG: Sinus Tachycardia w/ RBBB ST Change: No significant ST segment changes noted Arrhythmia: Rare PAC, 3 beat SVT Recovery ECG: Sinus Rhythm w/ RBBB Recovery ST Change: No significant ST segment changes noted Recovery Arrhythmia: 5 beat SVT Clinical Reason for Termination: Fatigue Stress Symptoms: General Fatigue Exercise duration: 7 min00 sec Highest Stage Reached: Stage 3: 3.4 mph at 14% grade. Exercise capacity: 8.57 METs Angina Score: None Aranda Treadmill Score: 5.2 Rate Pressure Product: 27239 Stress ECG Conclusion 1. Resting electrocardiogram showed right bundle branch block 2. Patient exercised on the Anthony protocol and completed a workload of 8.57 METS 3. Normal heart rate and blood pressure response to exercise. The patient achieved 94% of predicted heart rate for age 4. There was no electrocardiographic evidence of myocardial ischemia 5. There were no significant dysrhythmias 6. See MPI report Aranda Treadmill Score is 5.2 which is Low risk. Stress Test Summary STAGE Time (mins) Speed (mph) Grade (%) HR BP SpO2 SYMPTOMS METS Supine 61 108/72 98% Standing 60 120/70 98% 1 3 1.7 10 103 138/68 98% 4.5 2 6 2.5 12 133 148/62 98% 7 3 9 3.4 14 146 94% 10 1 min recovery 121 178/78 99% 3 min recovery 82 158/72 6 min recovery 78 136/64 MPI Conclusion Myocardial perfusion is normal. There is no ischemia or evidence of prior infarction EF is 64%, wall motion is normal Radiologist Interpretation Radiologist Interpretation by: Praneeth Fuentes MD Interpretation Date/Time: 12/26/2022 08:22:21
== END 2022-12-25 00:35 ==
LOC: DI 00:16
PROVIDERS: PCP Nurse Practitioner Family; Visit Provider Internal Medicine Cardiovascular Disease
DX: I25.10 Atherosclerotic heart disease of native coronary artery without angina pectoris (principal)
CPT/HCPCS: 78452; 93017

== ENCOUNTER 2022-12-28 14:03 | Outpatient (RCR) | payer SELFPAY ==
[2022-12-02 00:06] VITALS: BP 115/67; PULSE 60
[2022-12-05 14:18] VITALS: BP 107/67; PULSE 57
[2022-12-07 14:11] VITALS: BP 108/68; PULSE 58
[2022-12-12 14:04] VITALS: BP 102/64; PULSE 57
[2022-12-14 14:00] VITALS: BP 105/63; PULSE 64
[2022-12-19 13:58] VITALS: BP 122/69; PULSE 62
[2022-12-21 14:32] VITALS: BP 114/69; PULSE 62
[2022-12-26 14:35] VITALS: BP 123/76; PULSE 62
[2022-12-28 14:30] VITALS: BP 116/70; PULSE 58
== END 2022-12-31 23:59 | disposition home or self-care (01) ==
LOC: CR 14:03
PROVIDERS: PCP Nurse Practitioner Family; Visit Provider Internal Medicine Cardiovascular Disease

== ENCOUNTER 2023-01-30 14:02 | Outpatient (RCR) | payer SELFPAY ==
[2023-01-01 00:04] VITALS: BP 116/70; PULSE 58
--- NOTE | 2023-01-02 12:24 | CER_ITS ---
Date of service: 01/02/23 Time of Service: 12:24 Cardiac Event Recorder Referring Provider:: Wilfrid Trammell Indications:: Palpitations, SVT Cardiac Event Note: This is a 14-day classroom monitor Rhythm was sinus with an average heart rate of 63. Minimum was 42, maximum 111 There were rare ventricular ectopic beats There were occasional atrial premature beats. There were multiple self-limited atrial runs the longest of which was 17 beats in duration. Episodes of what were either atrial tachycardia or atrial fibrillation were noted. 1 of these episodes corresponded to patient's symptoms of rapid heartbeat There was no high-grade AV block, no pauses greater than 3 seconds
[2023-01-02 14:37] VITALS: BP 109/66; PULSE 67
[2023-01-04 14:04] VITALS: BP 103/67; PULSE 64
[2023-01-09 14:31] VITALS: BP 122/65; PULSE 58
[2023-01-11 14:20] VITALS: BP 118/69; PULSE 79
[2023-01-16 14:29] VITALS: BP 121/68; PULSE 68
[2023-01-18 14:45] VITALS: BP 107/66; PULSE 59
[2023-01-23 14:13] VITALS: BP 105/67; PULSE 61
[2023-01-25 14:02] VITALS: BP 113/71; PULSE 71
[2023-01-30 14:09] VITALS: BP 106/58; PULSE 68
== END 2023-01-31 23:59 | disposition home or self-care (01) ==
LOC: CR 14:02
PROVIDERS: PCP Nurse Practitioner Family; Visit Provider Internal Medicine Cardiovascular Disease
DX: I47.1 Supraventricular tachycardia (principal); I49.1 Atrial premature depolarization; I48.91 Unspecified atrial fibrillation

== ENCOUNTER 2023-03-01 14:07 | Outpatient (RCR) | payer SELFPAY ==
[2023-02-01 00:13] VITALS: BP 106/58; PULSE 68
[2023-02-01 14:20] VITALS: BP 111/62; PULSE 63
[2023-02-06 14:57] VITALS: BP 115/75; PULSE 66
[2023-02-08 14:27] VITALS: BP 110/68; PULSE 57
[2023-02-13 14:24] VITALS: BP 116/58; PULSE 61
[2023-02-15 14:14] VITALS: BP 97/56; PULSE 60
[2023-02-20 14:06] VITALS: BP 105/69; PULSE 68
[2023-02-22 14:52] VITALS: BP 111/68; PULSE 69
[2023-02-27 14:09] VITALS: BP 108/74; PULSE 60
[2023-03-01 13:50] VITALS: BP 129/57; PULSE 79
== END 2023-03-02 23:59 | disposition home or self-care (01) ==
LOC: CR 14:07
PROVIDERS: PCP Nurse Practitioner Family; Visit Provider Internal Medicine Cardiovascular Disease
DX: I47.1 Supraventricular tachycardia (principal); I49.1 Atrial premature depolarization; I48.91 Unspecified atrial fibrillation; R69 Illness, unspecified

== ENCOUNTER 2023-03-19 02:51 | Outpatient (CLI) | payer MEDICAID, SELFPAY ==
--- NOTE | 2023-03-19 07:05 | DI.US_ITS ---
Exam(s) US ABDOMEN EXAM: US ABDOMEN CLINICAL HISTORY: STEATOSIS OF LIVER K76.0 TECHNIQUE: Ultrasound abdomen performed using standard protocol. COMPARISON: US US RENAL from 09/07/2021 US US RENAL from 08/30/2022 CT,NM,TMT NM MPI REST STRESS GRP from 12/25/2022 FINDINGS: LIVER: Echogenic consistent with fatty infiltration. 14 cm length.. No focal liver lesions are seen .. GALLBLADDER: Status post cholecystectomy. BILIARY SYSTEM: No intrahepatic or extrahepatic biliary ductal dilation. KIDNEYS: Kidneys are symmetric in size. No evidence of renal calculi. No evidence of hydronephrosis. No renal mass or cyst identified. PANCREAS: Normal where visualized. SPLEEN: Not enlarged. ABDOMINAL AORTA AND IVC: Visualized portions normal caliber. ASCITES: None seen. IMPRESSION: Moderate hepatic steatosis. Status post cholecystectomy. DATA REPOSITORY:
[2023-03-20 14:26] VITALS: BP 118/67; PULSE 62
[2023-03-22 14:08] VITALS: BP 101/67; PULSE 74
[2023-03-27 14:14] VITALS: BP 110/71; PULSE 67
[2023-03-29 15:47] VITALS: BP 103/67; PULSE 64
== END 2023-03-19 03:11 ==
PROVIDERS: PCP Nurse Practitioner Family; Visit Provider Nurse Practitioner Family
DX: K76.0 Fatty (change of) liver, not elsewhere classified (principal); K91.5 Postcholecystectomy syndrome
CPT/HCPCS: 76700

== ENCOUNTER 2023-03-29 15:39 | Outpatient (RCR) | payer SELFPAY ==
[2023-03-03 00:16] VITALS: BP 129/57; PULSE 79
[2023-03-13 14:17] VITALS: BP 115/70; PULSE 75
[2023-03-15 14:16] VITALS: BP 102/69; PULSE 65
== END 2023-04-02 23:59 | disposition home or self-care (01) ==
LOC: CR 15:39
PROVIDERS: PCP Nurse Practitioner Family; Visit Provider Internal Medicine Cardiovascular Disease
DX: R69 Illness, unspecified (principal)

== ENCOUNTER 2023-05-03 14:00 | Outpatient (RCR) | payer SELFPAY ==
[2023-04-03 00:06] VITALS: BP 102/69; PULSE 65
[2023-04-03 14:38] VITALS: BP 108/64; PULSE 72
[2023-04-05 13:55] VITALS: BP 108/64; PULSE 61
[2023-04-12 14:59] VITALS: BP 116/71; PULSE 55
[2023-04-17 14:46] VITALS: BP 111/54; PULSE 61
[2023-04-17 15:04] VITALS: BP 111/75
[2023-04-19 14:47] VITALS: BP 116/67; PULSE 66
[2023-04-24 14:23] VITALS: BP 107/68; PULSE 59
[2023-04-26 14:23] VITALS: BP 111/64; PULSE 84
[2023-05-01 14:25] VITALS: BP 104/66; PULSE 67
[2023-05-03 15:05] VITALS: BP 104/67; PULSE 57
== END 2023-05-03 23:59 | disposition home or self-care (01) ==
LOC: CR 14:00
PROVIDERS: PCP Nurse Practitioner Family; Visit Provider Internal Medicine Cardiovascular Disease
DX: I47.1 Supraventricular tachycardia (principal); I49.1 Atrial premature depolarization; I48.91 Unspecified atrial fibrillation

== ENCOUNTER 2023-05-14 16:01 | Outpatient (REF) | payer MEDICAID, SELFPAY ==
[2023-05-14 16:09] LABS: ALT 46 U/L (14-59); AST 32 U/L (15-37); Albumin 4.1 g/dL (3.4-5.0); Alkaline Phosphatase 110 U/L (46-116); Anion Gap 9.9 mmol/L (3-11); BUN 15 mg/dL (7-18); Bilirubin, Total 0.5 mg/dL (0.2-1.0); CO2 27.1 mmol/L (21.0-32.0); Calcium 9.7 mg/dL (8.5-10.1); Chloride 104 mmol/L (98-107); Creatine Kinase 86 U/L (26-192); Estimated GFR 62.91 (mL/min/1.73m2); Glucose 123 mg/dL (74-106); Potassium 4.3 mmol/L (3.5-5.1); Sodium 141 mmol/L (136-145); Total Protein 7.4 g/dL (6.4-8.2)
== END 2023-05-14 16:02 | disposition home or self-care (01) ==
LOC: NCHCN 16:01
PROVIDERS: PCP Nurse Practitioner Family; Visit Provider Nurse Practitioner Family
DX: K76.0 Fatty (change of) liver, not elsewhere classified (principal); N20.0 Calculus of kidney; E78.5 Hyperlipidemia, unspecified; F41.8 Other specified anxiety disorders; R00.2 Palpitations; E83.52 Hypercalcemia; E66.8 Other obesity
CPT/HCPCS: 80053; 82550

== ENCOUNTER 2023-05-31 14:50 | Outpatient (RCR) | payer SELFPAY ==
[2023-05-04 00:04] VITALS: BP 104/67; PULSE 57
[2023-05-08 14:00] VITALS: BP 107/60; PULSE 64
[2023-05-15 14:12] VITALS: BP 102/66; PULSE 71
[2023-05-17 14:33] VITALS: BP 99/61; PULSE 69
[2023-05-17 14:51] VITALS: BP 116/66
[2023-05-22 15:28] VITALS: BP 123/67; PULSE 62
[2023-05-24 14:06] VITALS: BP 104/68; PULSE 64
[2023-05-31 14:54] VITALS: BP 103/63; PULSE 60
== END 2023-06-02 23:59 | disposition home or self-care (01) ==
LOC: CR 14:50
PROVIDERS: PCP Nurse Practitioner Family; Visit Provider Internal Medicine Cardiovascular Disease
DX: I47.1 Supraventricular tachycardia (principal); I49.1 Atrial premature depolarization; I48.91 Unspecified atrial fibrillation

== ENCOUNTER 2023-06-01 14:22 | Outpatient (REF) | payer MEDICAID, SELFPAY ==
--- NOTE | 2023-06-01 13:53 | SKI_PTH ---
PATIENT: Leora Simpson LOC: [facility] U#:[id number] AGE/SX: 63/F ROOM: RE06/01/[address]: KWASI Bhatti : 1960 BED: DIS: 06/01/2023 SPEC #: [id number] RECD: 06/01/23 18:47 STATUS: BRAEDEN REMargaret #: [id number] LISSET: 06/01/23 13:[address]: Pedr oPablo Griffin DEPT: Surgical Specimen RECD BY: Kyung Bell ENTERED: 06/01/23 18:48 SP TYPE: ERIN TAMAYO DR: Jodie Franklin Tissues: 1 - SKIN BIOPSY(SHAVE/PUNCH) Procedures: SKIN LEVEL 4 Comments: [id number]
== END 2023-06-01 14:23 | disposition home or self-care (01) ==
LOC: LBN 14:22
PROVIDERS: PCP Nurse Practitioner Family; Visit Provider Physician Assistant
DX: L30.8 Other specified dermatitis (principal); R21 Rash and other nonspecific skin eruption; Z84.0 Family history of diseases of the skin and subcutaneous tissue
CPT/HCPCS: 88305

== ENCOUNTER 2023-07-03 14:06 | Outpatient (RCR) | payer SELFPAY ==
[2023-06-03 00:03] VITALS: BP 103/63; PULSE 60
[2023-06-05 14:05] VITALS: BP 115/71; PULSE 61
[2023-06-07 14:14] VITALS: BP 111/62; PULSE 62
[2023-06-12 14:20] VITALS: BP 113/71; PULSE 70
[2023-06-19 14:08] VITALS: BP 106/68; PULSE 55
[2023-06-26 14:04] VITALS: BP 110/71; PULSE 57
[2023-07-03 14:09] VITALS: BP 110/67; PULSE 57
== END 2023-07-03 23:59 | disposition home or self-care (01) ==
LOC: CR 14:06
PROVIDERS: PCP Nurse Practitioner Family; Visit Provider Internal Medicine Cardiovascular Disease
DX: R69 Illness, unspecified

== ENCOUNTER 2023-07-19 14:02 | Outpatient (RCR) | payer SELFPAY ==
[2023-07-04 00:04] VITALS: BP 103/63; PULSE 60
[2023-07-17 14:10] VITALS: BP 113/70; PULSE 57
== END 2023-08-02 23:59 | disposition home or self-care (01) ==
LOC: CR 14:02
PROVIDERS: PCP Nurse Practitioner Family; Visit Provider Internal Medicine Cardiovascular Disease
DX: I47.1 Supraventricular tachycardia (principal); I49.1 Atrial premature depolarization; I48.91 Unspecified atrial fibrillation; R69 Illness, unspecified

== ENCOUNTER 2023-07-23 10:00 | Outpatient (CLI) | payer MEDICAID, SELFPAY | END 2023-07-23 10:01 | disposition home or self-care (01) | PROVIDERS: PCP Nurse Practitioner Family; Visit Provider Internal Medicine Cardiovascular Disease | DX: I25.10 Atherosclerotic heart disease of native coronary artery without angina pectoris (principal); R00.2 Palpitations; Z86.79 Personal history of other diseases of the circulatory system | CPT/HCPCS: 93270 ==

== ENCOUNTER 2023-08-28 08:57 | Outpatient (CLI) | payer MEDICAID, SELFPAY ==
--- NOTE | 2023-08-28 15:53 | W.CARDEVENT ---
Date of service: 08/28/23 Time of Service: 15:53 Cardiac Event Recorder Referring Provider:: YUDELKA Indications:: Palpitations Cardiac Event Note: This was a 30-day monitor on this patient to evaluate palpitations. 1. The baseline rhythm was normal sinus on day 1 at a rate of 64 bpm. 2. Paroxysmal atrial fibrillation starting from day 2 of monitoring with rapid ventricular response with maximum rate of 160 bpm. On the last day of monitoring (day 30) patient was in sinus bradycardia at 44 bpm. 3. Baseline right bundle branch block configuration. No ventricular tachycardia 4. No pauses noted 5. The manually triggered events were associated with episodes of rapid atrial fibrillation.
== END 2023-08-28 08:58 | disposition home or self-care (01) ==
LOC: CARDOPNVT 08:57
PROVIDERS: PCP Nurse Practitioner Family; Visit Provider Internal Medicine Interventional Cardiology
DX: R00.2 Palpitations (principal); I48.0 Paroxysmal atrial fibrillation; I45.10 Unspecified right bundle-branch block
CPT/HCPCS: 00123

== ENCOUNTER → 2023-09-11 01:17 | Outpatient (CLI) | payer MEDICAID, SELFPAY ==
[2023-06-14 14:16] VITALS: BP 109/66; PULSE 63
[2023-07-10 14:17] VITALS: BP 110/70; PULSE 64
[2023-07-19 14:04] VITALS: BP 109/67; PULSE 65
--- NOTE | 2023-09-11 07:45 | DI.US_ITS ---
Exam(s) US RENAL EXAM: US RENAL CLINICAL HISTORY: monitoring renal calculi,kidney stones,n20.0 TECHNIQUE: Ultrasound of both kidneys performed using standard protocol. COMPARISON: US US ABDOMEN from 03/19/2023 FINDINGS: RIGHT KIDNEY: Measures 9.8 cm in length. No cysts evident. At the midpole level there is a nonshadowing 6 x 5 mm hy perechoic focus. Possibly small angiomyolipoma. Versus is small nonobstructive calculus. There is a 4 x 3 mm nonobstructive calculus in lower pole c torsten region.No cysts nor solid renal masses. LEFT KIDNEY: Measures 9.0 cm in length. No cysts evident. Normal cortical thickness and corticomedullary differen tiaion. No solids masses. No intrarenal calculi nor hydonephrosis. URINARY BLADDER: Not able to be studied as it was empty IMPRESSION: 1. No significant ultrasound findings in the left kidney. 2. Small nonobstructing 4 millimeter calculus in the lower pole calyx region of the right kidney and another finding at midpole level which is either a small nonobstructive calculus or benign angiomyol ipoma. No evidence of hydronephrosis. No solid renal masses. Urinary bladder was empty and therefore not able to be studied. DATA REPOSITORY:
== END ==
PROVIDERS: PCP Nurse Practitioner Family; Visit Provider Nurse Practitioner Gerontology
DX: N20.0 Calculus of kidney (principal)
CPT/HCPCS: 76770

== ENCOUNTER → 2023-09-20 02:07 | Outpatient (CLI) | payer MEDICAID, SELFPAY ==
--- NOTE | 2023-09-20 | DI.MAMMO_ITS ---
Exam(s) MAMMO SCREENING EXAM: MAMMO SCREENING CLINICAL HISTORY: SCREENING MAMMO FOR BREAST CANCER Z12.31 TECHNIQUE: Mammograms were interpreted according to the usual protocol including computer analysis w [employer] CAD system, tomosynthesis and C-view imaging. COMPARISON: 2014 through 2022 FINDINGS: The breasts are composed of scattered fibroglandular densities, Breast Density category B. No suspicious masses or suspicious microcalcifications are seen. No skin thickening or abnormal axillary lymph nodes are seen. There has been no significant change from prior exams. IMPRESSION: BI-RADS Category 1, Negative mammogram Yearly screening mammography is recommended. Breast Density - Category B, scattered fibroglandular densities. A negative radiographic report should not delay biopsy if a dominant or clinically suspicious mass is present. Up to ten percent of cancers are not identified on mammography. A negative report may reinforce clinical impression. Adenosis and dense breasts may obscure an underlying neoplasm. False positive reports average 6 to 10%. Patient will receive a letter notifying them of these results.
== END ==
PROVIDERS: PCP Nurse Practitioner Family; Visit Provider Nurse Practitioner Family
DX: Z12.31 Encounter for screening mammogram for malignant neoplasm of breast (principal)
CPT/HCPCS: 77063; 77067

== ENCOUNTER 2023-10-02 14:03 | Outpatient (RCR) | payer SELFPAY ==
[2023-08-03 00:03] VITALS: BP 103/63; PULSE 60
[2023-09-04 14:23] VITALS: BP 120/72; PULSE 63
[2023-09-20 13:55] VITALS: BP 117/71; PULSE 53
[2023-09-25 14:10] VITALS: BP 101/66; PULSE 62
[2023-10-02 09:19] VITALS: BP 116/71; PULSE 54
== END 2023-10-03 23:59 | disposition home or self-care (01) ==
LOC: CR 14:03
PROVIDERS: PCP Nurse Practitioner Family; Visit Provider Internal Medicine Interventional Cardiology
DX: R69 Illness, unspecified (principal)

== ENCOUNTER 2023-11-01 13:59 | Outpatient (RCR) | payer SELFPAY ==
[2023-10-04 00:14] VITALS: BP 103/63; PULSE 60
[2023-10-04 15:40] VITALS: BP 122/60; PULSE 63
[2023-10-11 14:21] VITALS: BP 109/66; PULSE 53
[2023-10-16 14:12] VITALS: BP 111/69; PULSE 51
[2023-10-23 15:36] VITALS: BP 108/62; PULSE 57
[2023-10-25 14:00] VITALS: BP 109/72; PULSE 57
[2023-10-30 14:08] VITALS: BP 109/69; PULSE 57
[2023-11-01 14:00] VITALS: BP 98/61; PULSE 53
== END 2023-11-01 23:59 | disposition home or self-care (01) ==
LOC: CR 13:59
PROVIDERS: PCP Nurse Practitioner Family; Visit Provider Internal Medicine Cardiovascular Disease
DX: R69 Illness, unspecified (principal)

== ENCOUNTER 2023-11-19 12:44 | Outpatient (REF) | payer MEDICAID, SELFPAY ==
[2023-11-19 14:42] LABS: Abs Immature Grans 0.02 10^3/uL (0.0-0.06); Absolute Basophil Count 0.05 10^3/uL (0.0-0.2); Absolute Eosinophil Count 0.18 10^3/uL (0.0-0.7); Absolute Lymphocyte Count 2.01 10^3/uL (1.2-3.4); Absolute Monocyte Count 0.42 10^3/uL (0.1-0.8); Absolute Neutrophil Count 4.57 10^3/uL (1.2-6.7); Basophils % 0.7; Eosinophils % 2.5; Immature Grans % 0.3; Lymphocytes % 27.7; MCH 31.9 pg (27.0-33.0); MCHC 33.3 % (32.0-36.0); MCV 96 fL (80-95); MPV 9.9 fL (8.0-11.0); Monocytes % 5.8; Platelet Count 267 10^3/uL (130-400); RDW-SD 45.8 fL; WBC 7.25 10^3/uL (4.4-10.8)
[2023-11-19 15:02] LABS: ALT 63 U/L (14-59); AST 41 U/L (15-37); Albumin 4.1 g/dL (3.4-5.0); Alkaline Phosphatase 97 U/L (46-116); Anion Gap 8.1 mmol/L (3-11); BUN 16 mg/dL (7-18); Bilirubin, Total 0.8 mg/dL (0.2-1.0); CO2 27.9 mmol/L (21.0-32.0); Calcium 9.7 mg/dL (8.5-10.1); Chloride 106 mmol/L (98-107); Estimated GFR 62.91 (mL/min/1.73m2); Glucose 107 mg/dL (74-106); Potassium 4.5 mmol/L (3.5-5.1); Sodium 142 mmol/L (136-145); Total Protein 7.1 g/dL (6.4-8.2)
== END 2023-11-19 12:45 | disposition home or self-care (01) ==
LOC: NCHCN 12:44
PROVIDERS: PCP Nurse Practitioner Family; Visit Provider Nurse Practitioner Family
DX: K76.0 Fatty (change of) liver, not elsewhere classified (principal)
CPT/HCPCS: 80053; 85025

== ENCOUNTER 2023-12-24 08:31 | Outpatient (CLI) | payer MEDICAID, SELFPAY ==
--- NOTE | 2023-12-24 08:30 | RT.EKG_ITS ---
APPROVED REPORT Exam: Resting ECG Reason for Exam: CAD Patient Location: O HR:56 bpm ECG Measurements Heart Rate [address] 157 P 32 QRSd 134 QRS -1 QT 405 T 3 QTc 391 Conclusion Sinus rhythm...normal P axis, V-rate 50- 99 Right bundle branch block...QRSd>120, terminal axis(90,270)
== END 2023-12-24 08:32 | disposition home or self-care (01) ==
LOC: DI.CARD 08:32
PROVIDERS: PCP Nurse Practitioner Family; Visit Provider Internal Medicine Cardiovascular Disease
DX: I25.10 Atherosclerotic heart disease of native coronary artery without angina pectoris (principal); I48.0 Paroxysmal atrial fibrillation
CPT/HCPCS: 93010

== ENCOUNTER 2024-01-01 13:54 | Outpatient (RCR) | payer SELFPAY ==
[2023-12-04 14:18] VITALS: BP 106/68; PULSE 57
[2023-12-11 14:06] VITALS: BP 112/71; PULSE 64
[2023-12-13 14:00] VITALS: BP 111/70; PULSE 65
[2023-12-18 14:03] VITALS: BP 107/63; PULSE 60
[2023-12-20 14:02] VITALS: BP 101/57; PULSE 55
[2023-12-25 14:09] VITALS: BP 111/67; PULSE 61
[2023-12-27 14:15] VITALS: BP 108/65; PULSE 67
[2024-01-01 14:00] VITALS: BP 112/64; PULSE 68
== END 2024-01-01 23:59 | disposition home or self-care (01) ==
LOC: CR 13:54
PROVIDERS: PCP Nurse Practitioner Family; Visit Provider Internal Medicine Cardiovascular Disease
DX: R69 Illness, unspecified (principal)

== ENCOUNTER 2024-01-31 15:24 | Outpatient (RCR) | payer SELFPAY ==
[2024-01-02 00:14] VITALS: BP 112/64; PULSE 68
[2024-01-03 14:21] VITALS: BP 108/68; PULSE 61; O2SAT 95
[2024-01-08 14:24] VITALS: PULSE 59
[2024-01-29 14:45] VITALS: BP 120/71; PULSE 65
[2024-01-31 15:28] VITALS: BP 112/68; PULSE 84
== END 2024-02-01 23:59 | disposition home or self-care (01) ==
LOC: CR 15:24
PROVIDERS: PCP Nurse Practitioner Family; Visit Provider Internal Medicine Cardiovascular Disease
DX: R69 Illness, unspecified (principal)

== ENCOUNTER → 2024-02-25 01:49 | Outpatient (CLI) | payer MEDICAID, SELFPAY ==
--- NOTE | 2024-02-25 | DI.US_ITS ---
Exam(s) US ABDOMEN LIMITED EXAM: US ABDOMEN LIMITED CLINICAL HISTORY: STEATOSIS OF LIVER, K76.0 TECHNIQUE: Ultrasound abdomen performed using standard protocol. COMPARISON: US US ABDOMEN from 03/19/2023 US US RENAL from 09/11/2023 FINDINGS: PANCREAS: Normal where visualized. LIVER: There is increased echogenicity of the liver diffusely consistent with fatty infiltration. He patopetal flow in the Portal Vein. The liver measures in 13.9 cm length. No evidence of a hepatic mas s. GALLBLADDER:Status post cholecystectomy. BILIARY SYSTEM: Common bile duct measures 8 mm. No intrahepatic biliary ductal dilation. RIGHT KIDNEY: Kidney is normal in size. No evidence of renal calculi. No evidence of hydronephrosis. No renal mass or cyst identified. ASCITES: None seen. IMPRESSION: Hepatic steatosis. DATA REPOSITORY:
== END ==
PROVIDERS: PCP Nurse Practitioner Family; Visit Provider Nurse Practitioner Family
DX: K76.0 Fatty (change of) liver, not elsewhere classified (principal)
CPT/HCPCS: 76705

== ENCOUNTER 2024-02-28 14:51 | Outpatient (RCR) | payer SELFPAY ==
[2024-02-05 14:07] VITALS: BP 106/58; PULSE 57
[2024-02-07 14:14] VITALS: BP 105/72; PULSE 62
[2024-02-12 14:36] VITALS: BP 107/65; PULSE 56
[2024-02-26 14:20] VITALS: BP 112/70; PULSE 59
[2024-02-28 14:52] VITALS: BP 112/61; PULSE 65
== END 2024-03-02 23:59 | disposition home or self-care (01) ==
LOC: CR 14:51
PROVIDERS: PCP Nurse Practitioner Family; Visit Provider Internal Medicine Cardiovascular Disease
DX: R69 Illness, unspecified (principal)

== ENCOUNTER 2024-03-27 14:10 | Outpatient (RCR) | payer SELFPAY ==
[2024-03-04 14:39] VITALS: BP 100/63; PULSE 67
[2024-03-18 14:04] VITALS: BP 104/59; PULSE 60
[2024-03-20 14:19] VITALS: BP 107/62; PULSE 64
[2024-03-25 14:12] VITALS: BP 124/67; PULSE 63
[2024-03-27 14:00] VITALS: BP 124/81; PULSE 74
== END 2024-04-02 23:59 | disposition home or self-care (01) ==
LOC: CR 14:10
PROVIDERS: PCP Nurse Practitioner Family; Visit Provider Internal Medicine Cardiovascular Disease
DX: R69 Illness, unspecified (principal)

== ENCOUNTER 2024-05-01 14:25 | Outpatient (RCR) | payer SELFPAY ==
[2024-04-03 00:19] VITALS: BP 124/81; PULSE 74
[2024-04-08 14:18] VITALS: BP 107/71; PULSE 66
[2024-04-10 14:31] VITALS: BP 111/67; PULSE 73
[2024-04-15 13:56] VITALS: BP 115/69; PULSE 64
[2024-04-17 14:06] VITALS: BP 118/72; PULSE 83
[2024-04-22 14:17] VITALS: BP 101/69; PULSE 64
[2024-04-24 13:58] VITALS: BP 111/71; PULSE 60
--- NOTE | 2024-04-24 13:58 | NUR.NOTE ---
Nursing Note: Upon arriving to CR P3 exercise session, pt. informed this RN that she is scheduled to have a cardiac ablation for management/treatment of her atrial fibrillation on May 22, and would therefore not be attending CR that day. Pt. also informed this RN that she would most likely not be attending CR the following week either, depending on how she feels during her recovery.
[2024-04-29 14:22] VITALS: BP 101/63; PULSE 62
[2024-05-01 14:29] VITALS: BP 103/71; PULSE 57
== END 2024-05-03 23:59 | disposition home or self-care (01) ==
LOC: CR 14:25
PROVIDERS: PCP Nurse Practitioner Family; Visit Provider Internal Medicine Cardiovascular Disease
DX: R69 Illness, unspecified (principal)

== ENCOUNTER 2024-05-15 14:07 | Outpatient (RCR) | payer SELFPAY ==
[2024-05-04 00:09] VITALS: BP 124/81; PULSE 74
[2024-05-08 13:54] VITALS: BP 113/64; PULSE 53; O2SAT 94
[2024-05-13 14:41] VITALS: BP 115/69; PULSE 56
[2024-05-15 14:11] VITALS: BP 115/73; PULSE 62
== END 2024-06-02 23:59 | disposition home or self-care (01) ==
LOC: CR 14:07
PROVIDERS: PCP Nurse Practitioner Family; Visit Provider Internal Medicine Cardiovascular Disease
DX: R69 Illness, unspecified (principal)

== ENCOUNTER → 2024-06-23 10:34 | Outpatient (BNVA) | payer MEDICARE, MEDICAID, SELFPAY | PROVIDERS: PCP Nurse Practitioner Family; Visit Provider Internal Medicine Cardiovascular Disease | DX: I48.0 Paroxysmal atrial fibrillation (principal); I25.10 Atherosclerotic heart disease of native coronary artery without angina pectoris | CPT/HCPCS: 99213 ==

== ENCOUNTER 2024-06-26 01:40 | Outpatient (CLI) | payer MEDICARE, MEDICAID, SELFPAY ==
--- NOTE | 2024-06-26 | DI.DEXA_ITS ---
Exam(s) XR DEXA BONE DENSITY W/WO BINTA EXAM: XR DEXA BONE DENSITY W/WO BINTA CLINICAL HISTORY: Postmenopausal state, Z78.0 TECHNIQUE: COMPARISON: No exams were available for comparison FINDINGS: Lateral Spine Image: Unremarkable. No compression deformities identified. Left hip: Total T-Score: -1.4 Total Z-Score: -0.1 T- and Z-scores: Findings are consistent with osteopenia. There is osteoporosis in the femoral neck with a T-score of -2.5. Lumbar Spine: Total T-Score: 1.2 Total Z-Score: 3.0 T- and Z-scores: Within normal limits. IMPRESSION: Osteoporosis in the left femoral neck.
== END 2024-06-26 02:00 ==
LOC: DI 01:40
PROVIDERS: PCP Nurse Practitioner Family; Visit Provider Nurse Practitioner Family
DX: Z78.0 Asymptomatic menopausal state (principal); Z13.820 Encounter for screening for osteoporosis; M81.0 Age-related osteoporosis without current pathological fracture
CPT/HCPCS: 77080

== ENCOUNTER 2024-07-03 14:10 | Outpatient (RCR) | payer SELFPAY ==
[2024-06-05 14:06] VITALS: BP 111/68; PULSE 61; O2SAT 94
[2024-06-12 14:07] VITALS: BP 112/68; PULSE 58
[2024-06-17 15:37] VITALS: BP 111/63; PULSE 60
[2024-06-19 14:02] VITALS: BP 116/64; PULSE 66; O2SAT 98
[2024-06-24 14:23] VITALS: BP 106/68; PULSE 78
[2024-06-26 14:09] VITALS: BP 106/62; PULSE 58; O2SAT 94
[2024-07-03 14:16] VITALS: BP 99/63; PULSE 59
== END 2024-07-03 23:59 | disposition home or self-care (01) ==
LOC: CR 14:10
PROVIDERS: PCP Nurse Practitioner Family; Visit Provider Internal Medicine Cardiovascular Disease
DX: R69 Illness, unspecified (principal)

== ENCOUNTER 2024-07-22 15:46 | Outpatient (RCR) | payer SELFPAY ==
[2024-07-04 00:16] VITALS: BP 99/63; PULSE 59
[2024-07-08 14:01] VITALS: BP 103/63; PULSE 53
[2024-07-22 15:50] VITALS: BP 108/59; PULSE 56
== END 2024-08-02 23:59 | disposition home or self-care (01) ==
LOC: CR 15:46
PROVIDERS: PCP Nurse Practitioner Family; Visit Provider Internal Medicine Cardiovascular Disease
DX: R69 Illness, unspecified (principal)

== ENCOUNTER 2024-08-06 08:46 | Outpatient (CLI) | payer SELFPAY ==
--- NOTE | 2024-08-06 08:45 | RT.EKG_ITS ---
APPROVED REPORT Exam: Resting ECG Reason for Exam: PAF, CAD Patient Location: O HR:54 bpm ECG Measurements Heart Rate 54 AXIS NH 163 P -8 QRSd 132 QRS 13 QT 419 T 2 QTc 398 Conclusion Sinus rhythm...normal P axis, V-rate 50- 99 Right bundle branch block...QRSd>120, terminal axis(90,270)
== END 2024-08-06 08:47 | disposition home or self-care (01) ==
LOC: DI.CARD 08:47
PROVIDERS: PCP Nurse Practitioner Family; Visit Provider Internal Medicine Cardiovascular Disease
DX: I48.0 Paroxysmal atrial fibrillation (principal); I25.10 Atherosclerotic heart disease of native coronary artery without angina pectoris
CPT/HCPCS: 93010

== ENCOUNTER → 2024-08-07 13:50 | Outpatient (BNVA) | payer MEDICARE, SELFPAY | PROVIDERS: PCP Nurse Practitioner Family; Referring Provider Nurse Practitioner Family; Visit Provider Physical Therapy Assistant | DX: Z12.11 Encounter for screening for malignant neoplasm of colon (principal); R19.5 Other fecal abnormalities; I25.10 Atherosclerotic heart disease of native coronary artery without angina pectoris ==

== ENCOUNTER 2024-08-29 06:04 | Day surgery (SDC) | payer MEDICARE, MEDICAID, SELFPAY ==
--- NOTE | 2024-08-28 15:58 | W.PM.DSUDISC ---
Date of service: 08/29/24 Discharge Plan Disposition Patient Disposition: Home Condition: Good Discharge Details Reason For Visit: screening colonoscopy Attending Provider: Edwin Fuentes Primary Care Provider: Jodie Franklin Home Meds and New Rx's Prescriptions: Continued lisinopril 2.5 mg tablet 2.5 mg PO DAILY aspirin [Adult Aspirin Regimen] 81 mg tablet,delayed release (DR/EC) 81 mg PO DAILY vitamin E mixed 1,000 unit capsule 1,000 unit PO DAILY milk thistle 150 mg capsule 150 mg PO DAILY Rx Instructions: give with meal/snack magnesium oxide 400 mg magnesium capsule 400 mg PO QHS diltiazem HCl 120 mg capsule,extended release 24hr 120 mg PO DAILY betamethasone dipropionate 0.05 % ointment 1 applic topical DAILY PRN (Reason: skin irritation) Qty: 45 1RF levomefolate calcium 7.5 mg tablet 15 mg PO DAILY acetaminophen [Tylenol] 325 mg Tablet 650 mg PO Q4H PRN PRNQty: 0 0RF atorvastatin 40 mg tablet 80 mg PO DAILY Held Xarelto 20 mg tablet See Rx Instructions .ROUTE .COMPLEX Qty: 90 3RF Hold Instructions: Resume on 08/30/24. Dose Instruction: TAKE ONE TABLET BY MOUTH EVERY DAY WITH EVENING MEAL Rx Instructions: TAKE ONE TABLET BY MOUTH EVERY DAY WITH EVENING MEAL Discharge Instructions Instructions: Colon polyps, Diverticulosis Additional Instructions: Leora, it was great seeing you today, and I hope you are comfortable throughout the procedure. I did find to remove a single polyp in your rectum today. This will be sent off for testing since polyps, different varieties, and we use that information to help determine the time of your next colonoscopy. Incidentally, you also have some diverticulosis. I can recall if we talked about this when we saw each other before, but these are little weak spots in the muscular part of the colon wall. This causes little pockets or pouches to form, and they are known as diverticula. The condition of having them is diverticulosis, and if they become infected or inflamed, then we refer to that as diverticulitis. The best way to help take care of this is to incorporate plenty of fiber into your diet, stay well-hydrated, and avoid any symptoms of constipation. Have attached a little bit of information here about diverticular disease as well as polyps. Once I have the results of the polyp analysis, my office will be in touch with any other recommendations. Because we removed the polyp today, I would like you to hold your Xarelto for 1 more day. You can restart it tomorrow just as you normally take it. If you need anything or have any questions please do not hesitate to call at any point. Otherwise, we will be in touch once the report is available. 1. If tolerated, consume a soft, low fiber diet for 1-2 days. 2. Do not drive, drink alcohol, operate machinery, make critical decisions, or do activities that require coordination or balance for 24 hours. 3. Because air was put into your colon during the procedure, expelling air from your rectum (passing gas or farting) is normal. 4. You may not have a bowel movement for 1-3 days because of the colonoscopy prep. This is normal. 5. Go directly to the emergency room if you notice any of the following: Develop chills (warm to touch), or if you have a thermometer and your temperature is above 101 Difficulty breathing or difficultly swallowing Persistent vomiting Severe abdominal pain, other than gas cramps Severe chest pain Black, tarry stools Any bleeding ? exceeding one tablespoon 6. Call your physician if the site where your intravenous was started becomes red, swollen, painful, and warm to touch. 7. Your physician has reviewed your pre-procedure medications. Please continue to take those medications as previously ordered. You will be given specific information/education regarding any changes to your medications before leaving. Activity:: Activity as Tolerated Diet:: As Tolerated Discharge Orders Discharge Orders: Discharge Order (Routine); Ordered 08/28/24 Ordered By: Edwin Fuentes DS: Diagnosis Discharge Diagnosis (1) Encounter for screening colonoscopy: Status: Acute Asessment and Plan: Follow-up on polypectomy results
--- NOTE | 2024-08-28 16:00 | W.COLOREPORT ---
Date of service: 08/29/24 Time of Service: 08:07 Colonoscopy Report Date of procedure: 08/29/24 Pre-op diagnosis general: screening colonsocopy Post-op diagnosis procedure note: other (Diverticulosis, colon polyps) Procedure: colonoscopy with polypectomy Surgeon: Edwin Fuentes Anesthesia Type: General:No Airway Estimated blood loss (mL): 5 Pathology: other (0.5 cm pedunculated rectal polyp) Complications: None Disposition: same day Indications: Leora is a 64 year old woman who had a positive cologuard test. She needs a follow up screening colonoscopy Prep: Miralax/Dulcolax Procedure Start Time: 07:33 Procedure End Time: 07:52 Retraction Time: 13 Findings: Diverticulosis, 0.5 centimeter pedunculated rectal polyp Procedure Description: After the induction of anesthesia, and with the patient in left lateral decubitus position, I began by performing an external anorectal exam.? Perineum and skin were normal, as was the anal verge.? There was no evidence of external hemorrhoids.? Next, I performed a digital rectal exam.? I did not appreciate any abnormal findings.? Next, I advanced a colonoscope into the rectal vault.? I performed retroflexion.? This appeared normal.? Using insufflation, I then advanced the colonoscope beyond the rectal folds and into the sigmoid colon before advancing towards the cecum.? There is sigmoid diverticulosis.? The scope was noted to be in the cecum by identification of the ileocecal valve and appendiceal orifice.? I then began withdrawing the colonoscope using repeated irrigation as necessary for full evaluation of the colonic mucosa. ?Once the scope was withdrawn to the level of the rectum, great care was taken to examine portions of the rectal folds.? In the upper portion of the rectal vault was a 0.5 cm pedunculated polyp. This was removed with a energize snare polypectomy. The base was cauterized. Finally, the scope was withdrawn and the patient was brought to the same-day surgery recovery unit as the anesthetic wore off. ?The findings and instructions were shared with the patient prior to discharge. [place] Bowel Prep [place] Bowel Prep Right Colon: 3 Left Colon: 3 Transverse Colon: 3 Total Score: 9
[2024-08-29 06:15] VITALS: BP 121/65; PULSE 73; RESP 18; TEMP 36.3; O2SAT 98
[2024-08-29] MEDS: Lactated Ringers 1,000 ML 80 ML IV (06:47)
--- NOTE | 2024-08-29 07:04 | ANES.PREOP_ITS ---
General Info Date of Service Date Performed: 08/29/24 Height: 5 ft Weight: 87.4 kg Body Mass Index (BMI): 37.6 Surgical Procedure: Operation Date: 08/29/24 07:35 Proposed Procedure Side Surgeon yamilka Fuentes MD Meds Allergies and Home Medications Allergies Allergy/AdvReac Type Severity Reaction Status Date / Time No Known Allergies Allergy Verified 08/29/24 06:33 Home Medication ?Medication ?Instructions ?Recorded acetaminophen 325 mg tablet 650 mg (2 x 325 mg) PO Q4H PRN PRN 01/05/21 (Tylenol) #0 tabs aspirin 81 mg tablet,delayed 81 mg PO DAILY 05/02/21 release (Adult Aspirin Regimen) lisinopril 2.5 mg tablet 2.5 mg PO DAILY 05/02/21 atorvastatin 40 mg tablet 80 mg PO DAILY 11/18/22 milk thistle 150 mg capsule 150 mg PO DAILY 11/27/22 vitamin E mixed 1,000 unit capsule 1,000 unit PO DAILY 11/27/22 magnesium oxide 400 mg PO QHS 05/02/23 diltiazem HCl 120 mg 120 mg PO DAILY 06/01/23 capsule,extended release 24 hr rivaroxaban 20 mg tablet (Xarelto) See Rx Instructions .Route 11/06/23 .COMPLEX #90 tabs betamethasone dipropionate 0.05 % 1 applic topical DAILY PRN skin 01/18/24 topical ointment irritation #45 grams levomefolate calcium 7.5 mg tablet 15 mg PO DAILY 04/08/24 Current Visit Medications: Current Medications Generic Name Dose Route Start Last Admin Trade Name Freq PRN Reason Stop Dose Admin Ringer's Solution 1,000 mls @ 80 mls/hr 08/29/24 06:15 08/29/24 06:47 IV 09/28/24 06:14 80 mls/hr INFUSION AWA Administration IV Miscellaneous Supplies 1 each 08/29/24 06:00 Iv Access IV 08/29/24 23:59 DIRECTED AWA Ondansetron HCl 4 mg 08/28/24 16:01 Ondansetron 4 Mg/2 Ml Vial IVP 09/27/24 16:00 Q4H PRN PRN Nausea / Vomiting Sodium Chloride 0 ml 08/29/24 06:00 Normal Saline Flush 10 Ml Syr IV 08/29/24 23:59 PRN PRN Sodium Chloride 0 ml 08/29/24 06:00 Normal Saline 10 Ml Vial IJ 08/29/24 23:59 DIRECTED PRN Sterile Water 0 ml 08/29/24 06:00 Water,Injection,Sterile 10 Ml Vial IJ 08/29/24 23:59 DIRECTED PRN PFSH Active Problems Active Problems: Problem Status Onset Code Encounter for screening colonoscopy Acute Z12.11 Paroxysmal atrial fibrillation Acute I48.0 Psoriasis Chronic L40.9 Family history of psoriasis Acute Z84.0 Rash Acute R21 Palpitations Acute R00.2 Finger swelling Acute M79.89 Coronary artery disease Chronic I25.10 Chest pain Acute R07.9 Kidney stones Chronic N20.0 Medical History Medical History Abnormal mammogram Obesity Hyperlipidemia Osteoarthritis Anxiety Acquired polycythemia Hypercalcemia Steatosis of liver History of paroxysmal supraventricular tachycardia Rash Surgical History Surgical History (Updated 08/29/24 @ 07:25 by Mason Romano, [employer]) Stented coronary artery Placed in 2019 x1 H/O cardiac radiofrequency ablation 05/2024 S/P hysterectomy Tobacco Smoking/Tobacco Use Status: Never Alcohol Alcohol Intake: never Substance Use Substance use: Never Substance use type: does not use Vital Signs and Lab Results Vital Signs Most Recent Vital Signs in EMR: Most Recent Vital Signs Temp Pulse Resp BP Pulse Ox 36.3 C L 73 18 121/65 98 08/29/24 06:15 08/29/24 06:15 08/29/24 06:15 08/29/24 06:15 08/29/24 06:15 Lab Results Blood Type / Crossmatch: No Data to Display Complete Blood Count: No Data to Display Complete Metabolic Panel: No Data to Display Liver Function Panel: No Data to Display Coagulation Panel: No Data to Display Cardiac Panel: No Data to Display Arterial Blood Gas: No Data to Display Venous Blood Gas: No Data to Display Pancreas Panel: No Data to Display Thyroid Panel: No Data to Display Infectious Disease: No Data to Display Blood Cultures: No Data to Display Toxicology Panel: No Data to Display Imaging and Studies Imaging and Studies Study information below may be from another EMR and interpreted by another provider. Please see original notes in EMR for more complete details. EKG Summary: Conclusion Sinus rhythm...normal P axis, V-rate 50- 99 Right bundle branch block...QRSd>120, terminal axis(90,270) Stress Test Summary: 12/2022:MPI Conclusion Myocardial perfusion is normal. There is no ischemia or evidence of prior infarction EF is 64%, wall motion is normal Anesthesia Assessment and Plan Anesthesia History Personal History: No History of Anesthesia Complications Family History: No Family History of Anesthesia Complications Exercise Tolerance Exercise Tolerance: Metabolic Equivalents>4 Pertinent Negatives Pertinent Negatives: No Symptoms of GERD Cardiac & Pulmonary Exam Cardiac Exam: Normal S1/S2 Heart Sounds Pulmonary Exam: Clear Bilateral Breath Sounds Implantable Cardiac Device Does patient have a Pacemaker or an ICD?: No Airway Exam Known Difficult Airway: No Mallampati Class: 2 Mouth Opening: Normal (> 3cm) Thyromental Distance: Greater than 3 cm Neck Range of Motion: Full ROM Neck Circumference: Normal Teeth Condition: Normal Dentition ASA Classification ASA Score: ASA 3 Emergency Case?: No NPO Status NPO Status: NPO Clears >2 hours, Solids >8 hours Anesthesia Plan Resuscitation Status: Full Code Anesthesia Technique: General Anesthesia Airway Planned: Natural Airway Monitors Used: Standard Monitors
[2024-08-29 07:07] VITALS: BMI 37.6
--- NOTE | 2024-08-29 07:50 | BOWEL_PTH ---
PATIENT: Leora Simpson LOC: [facility] U#:[id number] AGE/SX: 64/F ROOM: RE08/29/[address]: Edwin Fuentes MD : 1960 BED: DIS: 08/29/2024 SPEC #: [id number] RECD: 08/29/24 12:30 STATUS: BRAEDEN RE #: [id number] LISSET: 08/29/24 07:[address]: Edwin Fuentes DEPT: Surgical Specimen RECD BY: Kyung Bell ENTERED: 08/29/24 12:31 SP TYPE: Bowel OTHR DR: Jodie Franklin Tissues: 1 - BIOPSY BOWEL Procedures: GROSS AND MICRO LEVEL 4 Comments: [id number]
[2024-08-29 07:56] VITALS: BP 111/71; PULSE 75; RESP 18; TEMP 36.7; O2SAT 96
--- NOTE | 2024-08-29 08:10 | W.ANESPOSTOP ---
Postoperative Evaluation Date, Time and Location Date Performed: 08/29/24 Time Performed: 08:10 Patient Location: Day Surgery Unit Vital Signs Most Recent Imported Vital Signs: Most Recent Vital Signs Temp Pulse Resp BP Pulse Ox 36.7 C 75 18 111/71 96 08/29/24 07:56 08/29/24 07:56 08/29/24 07:56 08/29/24 07:56 08/29/24 07:56 Assessment Mental Status: Awake (Alert & Oriented to Patient Baseline) Airway and Respiratory Function: Patent airway with normal (patient baseline) respiratory exam Cardiovascular Function: Hemodynamically Stable Hydration Status: Adequately Hydrated Nausea & Vomiting: No Nausea or Vomiting Pain: Pt. Denies Any Pain Peripheral Nerve Block: Patient did not receive a nerve block
[2024-08-29 08:21] VITALS: BP 112/66; PULSE 66; RESP 18; TEMP 36; O2SAT 97
== END 2024-08-29 08:36 | disposition home or self-care (01) ==
LOC: SUR 06:04
PROVIDERS: PCP Nurse Practitioner Family; Visit Provider Surgery
PROC: 0DJD8ZZ Inspection of Lower Intestinal Tract, Via Natural or Artificial Opening Endoscopic (ICD-10-PCS; CPT 45378; principal; 2024-08-29 07:30)
DX: Z12.11 Encounter for screening for malignant neoplasm of colon (principal); K62.1 Rectal polyp; I25.10 Atherosclerotic heart disease of native coronary artery without angina pectoris; K57.30 Diverticulosis of large intestine without perforation or abscess without bleeding
CPT/HCPCS: 45385; 88305; J2704

== ENCOUNTER 2024-09-02 14:14 | Outpatient (RCR) | payer SELFPAY ==
[2024-08-03 00:23] VITALS: BP 99/63; PULSE 59
[2024-08-05 14:13] VITALS: BP 133/58; PULSE 54
[2024-08-14 14:07] VITALS: BP 121/73; PULSE 57
[2024-08-26 13:55] VITALS: BP 139/66; PULSE 59
[2024-09-02 14:25] VITALS: BP 127/72; PULSE 59
== END 2024-09-02 23:59 | disposition home or self-care (01) ==
LOC: CR 14:14
PROVIDERS: PCP Nurse Practitioner Family; Visit Provider Internal Medicine Cardiovascular Disease
DX: R69 Illness, unspecified (principal)

== ENCOUNTER 2024-10-02 02:39 | Outpatient (CLI) | payer MEDICARE, MEDICAID, SELFPAY ==
[2023-10-09 14:04] VITALS: BP 108/69; PULSE 62
[2023-11-06 13:50] VITALS: BP 113/68; PULSE 56
[2023-11-08 14:36] VITALS: BP 114/64; PULSE 59
--- NOTE | 2024-10-02 07:30 | DI.US_ITS ---
Exam(s) US RENAL EXAM: US RENAL CLINICAL HISTORY: monitoring calculi,kidney stones,n20.0. TECHNIQUE: Eduardo scale, color and spectral Doppler were used. COMPARISON: No exams were available for comparison FINDINGS: Renal size in cm: Right: 9.7. Left: 9.2. Echogenicity: Normal. Hydronephrosis: No. Cyst or mass: No. Nephrolithiasis: There are 2 small echogenic foci in the right kidney. The largest measures 4 mm. T hese may represent nonobstructing stones. Other findings: None. Bladder:Normal. Ureteral jets: Right: Not visualized on this examination. Left: Not visualized on this examination. Prevoid vol:72 cc Postvoid vol:0 cc Renal color flow: Symmetric and within normal limits. IMPRESSION: No evidence of obstructive uropathy. DATA REPOSITORY:
== END 2024-10-02 02:59 ==
PROVIDERS: PCP Nurse Practitioner Family; Visit Provider Nurse Practitioner Gerontology
DX: N20.0 Calculus of kidney (principal)
CPT/HCPCS: 76770

== ENCOUNTER 2024-10-02 13:43 | Outpatient (RCR) | payer SELFPAY ==
[2024-09-03 00:27] VITALS: BP 99/63; PULSE 59
[2024-09-09 14:15] VITALS: BP 111/67; PULSE 58
[2024-09-11 14:10] VITALS: BP 111/63; PULSE 58
[2024-09-16 14:20] VITALS: BP 117/71; PULSE 61
[2024-09-23 14:22] VITALS: BP 123/68; PULSE 58
[2024-09-25 14:10] VITALS: BP 115/82; PULSE 55; O2SAT 98
[2024-10-02 13:46] VITALS: BP 114/66; PULSE 60; O2SAT 95
== END 2024-10-03 23:59 | disposition home or self-care (01) ==
LOC: CR 13:43
PROVIDERS: PCP Nurse Practitioner Family; Visit Provider Internal Medicine Cardiovascular Disease
DX: R69 Illness, unspecified (principal)

== ENCOUNTER 2024-10-23 14:34 | Outpatient (RCR) | payer SELFPAY ==
[2024-10-07 14:32] VITALS: BP 107/70; PULSE 52
[2024-10-21 14:10] VITALS: BP 108/68; PULSE 59
[2024-10-23 14:36] VITALS: BP 111/60; PULSE 58
== END 2024-10-31 23:59 | disposition home or self-care (01) ==
LOC: CR 14:34
PROVIDERS: PCP Nurse Practitioner Family; Visit Provider Internal Medicine Cardiovascular Disease
DX: R69 Illness, unspecified (principal)

== ENCOUNTER 2024-11-05 16:19 | Outpatient (REF) | payer MEDICARE, SELFPAY ==
[2024-11-05 21:16] LABS: Abs Immature Grans 0.03 10^3/uL (0.0-0.06); Absolute Basophil Count 0.05 10^3/uL (0.0-0.2); Absolute Eosinophil Count 0.22 10^3/uL (0.0-0.7); Absolute Lymphocyte Count 2.42 10^3/uL (1.2-3.4); Absolute Monocyte Count 0.35 10^3/uL (0.1-0.8); Absolute Neutrophil Count 3.96 10^3/uL (1.2-6.7); Basophils % 0.7 %; Eosinophils % 3.1 %; HCT 46.8 % (36.0-46.0); HGB 15.2 g/dL (11.2-15.7); Immature Grans % 0.4 %; Lymphocytes % 34.4 %; MCH 30.5 pg (27.0-33.0); MCHC 32.5 % (32.0-36.0); MCV 94 fL (80-95); MPV 9.7 fL (8.0-11.0); Neutrophils % 56.4 %; Platelet Count 345 10^3/uL (130-400); RBC 4.99 10^6/uL (3.93-5.22); RDW 13.2 % (11.7-14.6); RDW-SD 45.1 fL; WBC 7.03 10^3/uL (4.4-10.8)
[2024-11-05 21:33] LABS: Hemoglobin A1C 5.8 % (<5.7)
[2024-11-05 21:56] LABS: ALT 87 U/L (14-59); AST 61 U/L (15-37); Albumin 4.1 g/dL (3.4-5.0); Alkaline Phosphatase 119 U/L (46-116); Anion Gap 6.5 mmol/L (3-11); BUN 15 mg/dL (7-18); Bilirubin, Total 0.53 mg/dL (0.2-1.0); CO2 31.5 mmol/L (21.0-32.0); CREATININE 0.9 mg/dL (0.55-1.02); Calcium 10.1 mg/dL (8.5-10.1); Chloride 109 mmol/L (98-107); Estimated GFR 70.95 (mL/min/1.73m2); Glucose 116 mg/dL (74-106); Potassium 4.6 mmol/L (3.5-5.1); Sodium 147 mmol/L (136-145); Total Protein 7.5 g/dL (6.4-8.2)
== END 2024-11-05 16:20 | disposition home or self-care (01) ==
LOC: NCHCN 16:19
PROVIDERS: PCP Nurse Practitioner Family; Visit Provider Nurse Practitioner Family
DX: K76.0 Fatty (change of) liver, not elsewhere classified (principal); E66.9 Obesity, unspecified
CPT/HCPCS: 80053; 82306; 83036; 85025

== ENCOUNTER 2024-11-27 14:22 | Outpatient (RCR) | payer SELFPAY ==
[2024-11-01 00:21] VITALS: BP 111/60; PULSE 58
[2024-11-04 14:34] VITALS: BP 109/66; PULSE 55
[2024-11-06 14:04] VITALS: BP 106/66; PULSE 62
[2024-11-13 14:00] VITALS: BP 117/61; PULSE 61
[2024-11-18 14:10] VITALS: BP 99/63; PULSE 63
[2024-11-20 14:26] VITALS: BP 102/64; PULSE 77
[2024-11-25 14:22] VITALS: BP 104/65; PULSE 55
[2024-11-27 14:26] VITALS: BP 103/67; PULSE 56
== END 2024-12-01 23:59 | disposition home or self-care (01) ==
LOC: CR 14:22
PROVIDERS: PCP Nurse Practitioner Family; Visit Provider Internal Medicine Cardiovascular Disease
DX: R69 Illness, unspecified (principal)

== ENCOUNTER 2024-12-30 15:12 | Outpatient (RCR) | payer SELFPAY ==
[2024-12-02 00:09] VITALS: BP 111/60; PULSE 58
[2024-12-02 14:26] VITALS: BP 116/68; PULSE 58
[2024-12-04 14:01] VITALS: BP 110/62; PULSE 58; O2SAT 100
[2024-12-09 13:54] VITALS: BP 105/66; PULSE 60; O2SAT 96
[2024-12-11 14:00] VITALS: BP 125/72; PULSE 66; O2SAT 98
[2024-12-16 14:08] VITALS: BP 105/71; PULSE 58
[2024-12-18 14:10] VITALS: BP 100/64; PULSE 50
[2024-12-23 14:28] VITALS: BP 104/68; PULSE 68
[2024-12-25 14:16] VITALS: BP 103/67; PULSE 58
[2024-12-30 15:13] VITALS: BP 103/64; PULSE 70
== END 2024-12-31 23:59 | disposition home or self-care (01) ==
LOC: CR 15:12
PROVIDERS: PCP Nurse Practitioner Family; Visit Provider Internal Medicine Cardiovascular Disease
DX: R69 Illness, unspecified (principal)

== ENCOUNTER → 2025-01-05 15:04 | Outpatient (BNVA) | payer MEDICARE, MEDICAID, SELFPAY | PROVIDERS: PCP Nurse Practitioner Family; Visit Provider Registered Nurse | DX: I25.10 Atherosclerotic heart disease of native coronary artery without angina pectoris (principal); I48.0 Paroxysmal atrial fibrillation | CPT/HCPCS: 99214 ==

== ENCOUNTER 2025-01-29 13:48 | Outpatient (RCR) | payer SELFPAY ==
[2025-01-01 00:06] VITALS: BP 111/60; PULSE 58
[2025-01-01 14:17] VITALS: BP 109/68; PULSE 62
[2025-01-06 15:21] VITALS: BP 121/68; PULSE 59
[2025-01-08 14:25] VITALS: BP 121/74; PULSE 66
[2025-01-20 14:19] VITALS: BP 116/72; PULSE 67
[2025-01-22 14:52] VITALS: BP 134/56; PULSE 52
[2025-01-27 14:22] VITALS: BP 111/73; PULSE 61
[2025-01-29 15:40] VITALS: BP 114/71; PULSE 58
== END 2025-01-31 23:59 | disposition home or self-care (01) ==
LOC: CR 13:48
PROVIDERS: PCP Nurse Practitioner Family; Visit Provider Internal Medicine Cardiovascular Disease
DX: R69 Illness, unspecified (principal)

== ENCOUNTER 2025-02-17 14:00 | Outpatient (RCR) | payer SELFPAY ==
[2025-02-01 00:05] VITALS: BP 111/60; PULSE 58
[2025-02-03 14:32] VITALS: BP 113/54; PULSE 61
[2025-02-05 14:07] VITALS: BP 111/77; PULSE 75
[2025-02-10 14:28] VITALS: BP 113/62; PULSE 61
[2025-02-12 14:30] VITALS: BP 111/65; PULSE 56
[2025-02-17 14:56] VITALS: BP 109/71; PULSE 61
== END 2025-03-02 23:59 | disposition home or self-care (01) ==
LOC: CR 14:00
PROVIDERS: PCP Nurse Practitioner Family; Visit Provider Internal Medicine Cardiovascular Disease
DX: R69 Illness, unspecified (principal)

== ENCOUNTER 2025-03-23 00:43 | Outpatient (CLI) | payer MEDICARE, MEDICAID, SELFPAY ==
--- NOTE | 2025-03-23 08:30 | DI.US_ITS ---
Exam(s) US ABDOMEN LIMITED EXAM: US ABDOMEN LIMITED CLINICAL HISTORY: steatotic liver disease K76.0 fatty liver TECHNIQUE: Ultrasound abdomen performed using standard protocol. COMPARISON: US US ABDOMEN from 03/19/2023 FINDINGS: LIVER: Normal size. Increased echogenicity and decreased through transmission, consistent with moderate hepatic steatosis. Similar appearance to prior. No focal liver lesions are seen. GALLBLADDER: Cholecystectomy. BILIARY SYSTEM: No intrahepatic or extrahepatic biliary ductal dilation. Right KIDNEY: Normal size. No evidence of renal calculi. No evidence of hydronephrosis. No renal mass or cyst identified. PANCREAS: Normal where visualized. ASCITES: None seen. IMPRESSION: Moderate hepatic steatosis. DATA REPOSITORY:
== END 2025-03-23 01:03 ==
PROVIDERS: PCP Nurse Practitioner Family; Visit Provider Nurse Practitioner Family
DX: K76.0 Fatty (change of) liver, not elsewhere classified (principal)
CPT/HCPCS: 76705

== ENCOUNTER 2025-04-02 14:00 | Outpatient (RCR) | payer SELFPAY ==
[2025-03-03 16:03] VITALS: BP 120/71; PULSE 58
[2025-03-05 14:20] VITALS: BP 122/71; PULSE 65; O2SAT 96
[2025-03-10 14:13] VITALS: BP 109/70; PULSE 57
[2025-03-17 14:16] VITALS: BP 113/71; PULSE 95
[2025-03-19 14:04] VITALS: BP 125/63; PULSE 59; O2SAT 96
[2025-03-24 14:20] VITALS: BP 113/71; PULSE 65
[2025-03-26 14:21] VITALS: BP 115/71; PULSE 61
[2025-03-31 14:45] VITALS: BP 117/66; PULSE 61
[2025-04-02 14:18] VITALS: BP 110/72; PULSE 62
== END 2025-04-02 23:59 | disposition home or self-care (01) ==
LOC: CR 14:00
PROVIDERS: PCP Nurse Practitioner Family; Visit Provider Internal Medicine Cardiovascular Disease
DX: R69 Illness, unspecified (principal)

== ENCOUNTER 2025-04-07 01:57 | Outpatient (CLI) | payer MEDICARE, SELFPAY ==
--- NOTE | 2025-04-07 | DI.MAMMO_ITS ---
Exam(s) MAMMO SCREENING EXAM: MAMMO SCREENING CLINICAL HISTORY: SCREENING, Z12.31 TECHNIQUE: Bilateral full field digital CC and MLO mammographic images were obtained with 3D tomosynthesis and utilizing computer aided detection (CAD). COMPARISON: Comparison is made with prior examinations. FINDINGS: Masses/Architectural Distortion: No suspicious masses or areas of architectural distortion are present. There are stable nodular densities in both breasts. Microcalcifications: No suspicious pleomorphic-type are seen. Skin Thickening/Nipple Retraction: None. IMPRESSION: 1. No significant interval change with no specific features of malignancy noted. 2. Unless there is more urgent need, screening mammography is recommended, as per [employer] guidelines. BI-RADS Category 2 - Benign Findings Breast Density - Category B - There are scattered areas of fibroglandular density. Breast density Category C or D implies that the patient has dense breast tissue. Dense breast tissue can make it harder to find cancer on a mammogram. Dense breast tissue is also associated with an increased risk of breast cancer. This information about the result of the mammogram report was provided to the patient to raise their awareness. Use this report when you speak with the patient about their risks for breast cancer, which includes their family history. At that time, you may recommend additional screening tests (Ultrasound or MRI) as these tests may add significant information. A negative radiographic report should not delay biopsy if a dominant or clinically suspicious mass is present. Up to ten percent of cancers are not identified on mammography. A negative report may reinforce clinical impression. Adenosis and dense breasts may obscure an underlying neoplasm. False positive reports average 6 to 10%. Patient will receive a letter notifying them of these results.
== END 2025-04-07 02:17 ==
LOC: DI 01:57
PROVIDERS: PCP Nurse Practitioner Family; Visit Provider Nurse Practitioner Family
DX: Z12.31 Encounter for screening mammogram for malignant neoplasm of breast (principal); R92.323 Mammographic fibroglandular density, bilateral breasts
CPT/HCPCS: 77063; 77067

== ENCOUNTER 2025-04-30 14:00 | Outpatient (RCR) | payer SELFPAY ==
[2025-04-03 00:12] VITALS: BP 110/72; PULSE 62
[2025-04-07 14:16] VITALS: BP 110/73; PULSE 60
[2025-04-16 13:56] VITALS: BP 111/72; PULSE 63
[2025-04-28 14:28] VITALS: BP 116/75; PULSE 57
[2025-04-30 14:21] VITALS: BP 114/68; PULSE 59
== END 2025-05-03 23:59 | disposition home or self-care (01) ==
LOC: CR 14:00
PROVIDERS: PCP Nurse Practitioner Family; Visit Provider Internal Medicine Cardiovascular Disease
DX: R69 Illness, unspecified (principal)

== ENCOUNTER 2025-06-02 14:00 | Outpatient (RCR) | payer SELFPAY ==
[2025-05-07 14:23] VITALS: BP 113/69; PULSE 62
[2025-05-12 14:30] VITALS: BP 103/72; PULSE 68
[2025-05-28 14:40] VITALS: BP 128/72; PULSE 59
[2025-06-02 14:42] VITALS: BP 133/73; PULSE 60
== END 2025-06-02 23:59 | disposition home or self-care (01) ==
LOC: CR 14:00
PROVIDERS: PCP Nurse Practitioner Family; Visit Provider Internal Medicine Cardiovascular Disease
DX: R69 Illness, unspecified (principal)

== ENCOUNTER → 2025-07-06 15:06 | Outpatient (BNVA) | payer MEDICARE, SELFPAY | PROVIDERS: PCP Nurse Practitioner Family; Referring Provider Nurse Practitioner Family; Visit Provider Registered Nurse | DX: I25.10 Atherosclerotic heart disease of native coronary artery without angina pectoris (principal); R00.2 Palpitations; I48.0 Paroxysmal atrial fibrillation; Z79.01 Long term (current) use of anticoagulants; Z79.02 Long term (current) use of antithrombotics/antiplatelets | CPT/HCPCS: 99214 ==

== ENCOUNTER 2025-07-28 14:00 | Outpatient (RCR) | payer SELFPAY ==
[2025-07-07 14:32] VITALS: BP 126/73; PULSE 81
[2025-07-09 14:19] VITALS: BP 123/73; PULSE 56
[2025-07-14 14:24] VITALS: BP 122/69; PULSE 56
[2025-07-28 14:13] VITALS: BP 126/76; PULSE 68
== END 2025-08-02 23:59 | disposition home or self-care (01) ==
LOC: CR 14:00
PROVIDERS: PCP Nurse Practitioner Family; Visit Provider Internal Medicine Cardiovascular Disease
DX: R69 Illness, unspecified (principal)

== ENCOUNTER → 2025-08-05 09:49 | Outpatient (BNVA) | payer MEDICARE, SELFPAY | PROVIDERS: PCP Nurse Practitioner Family; Referring Provider Nurse Practitioner Family; Visit Provider Internal Medicine Cardiovascular Disease | DX: I48.0 Paroxysmal atrial fibrillation (principal); Z79.01 Long term (current) use of anticoagulants | CPT/HCPCS: 99213 ==

== ENCOUNTER 2025-08-11 14:58 | Outpatient (RCR) | payer SELFPAY ==
[2025-08-03 00:04] VITALS: BP 126/76; PULSE 68
[2025-08-11 15:00] VITALS: BP 123/76; PULSE 68
== END 2025-09-02 23:59 | disposition home or self-care (01) ==
LOC: CR 14:58
PROVIDERS: PCP Nurse Practitioner Family; Visit Provider Internal Medicine Cardiovascular Disease
DX: R69 Illness, unspecified (principal)